=== PATIENT | male | born 1970 | race Caucasian/White ===

== ENCOUNTER 2021-12-03 15:48 | Outpatient (CLI) | payer OTHER, SELFPAY ==
--- OUTSIDE RECORDS SUMMARY | 2021-11-20 09:14 | XMS_ITS | Continuity of Care Document ---
:1970 Author Care Team Providers Name Role Phone SEEN Primary Care Physician Unavailable BRITTANY Patel Attending Physician Allergies, Adverse Reactions, Alerts Allergen Type Severity Reaction Last Verified Status Updated Avocado Allergy Unknown November 03, Yes Active 2020 TEGADERM Adverse Mild Rash August 03, No Active Reaction 2021 Social History Smoking Status Unknown if ever smoked Additional Data Assigned Sex Male Problems Active Problems Medical Problem Onset Date Status Rectal cancer metastasized to 2020 Active intra-abdominal lymph node Medications Medication Status Dose Units Route Directions Qty Days Start End Ins tructions Date Date Diphenhydrami Active 25 MG OR As Needed ne Hcl (Benadryl Allergy) 25 Mg CAP Ibuprofen Active 200 MG PO Q6h Prn 30 (Advil) 200 Mg CAP Loperamide Active 2 MG PO As Needed Hcl (Imodium) 2 Mg CAP Magic Discontin 5 ML PO Four Times October For mouth tenderness/sores. SWISH, HOLD in Mouth, then SPIT. Mouthwash ued Daily as , r , SEPTEMBER CO MPOUND IF FIRST PRODUCT NOT COVERED (Lidocaine/Be needed 2020 2020 nadryl/Maalox 8:32am 4:03pm ) (First-Mouthw charlie Blm) Blm RAMILA Ondansetron Discontin 4 MG PO Every July Octobe Hcl (Zofran) ued Hours as , r 4th, 4 Mg TAB needed 2020 2020 5:22pm 4:03pm Oxycodone Hcl Discontin 5-10 MG PO Every July ued Hours as , needed 2020 1:56pm Oxycodone/Misael Discontin 1-2 TAB PO Every 4 Franky ar taminophen ued Hours as r 4th, y (Percocet) 5 needed 2020, Mg/325 Mg TAB 4:55pm 2021 2:37pm Oxycodone/Misael Discontin 1-2 TAB PO Every February Nove mb taminophen ued Hours as 4th, er (Percocet) 5 needed 2020 4th, Mg/325 Mg TAB 4:33pm 2020 4:54pm Oxycodone/Misael Discontin 1-2 TAB PO Every Febo be taminophen ued Hours as er 8th, r 4th, (Percocet) 5 needed 2020 2020 Mg/325 Mg TAB 5:27pm 4:33pm Oxycodone/Misael Discontin 1-2 TAB PO Every December m taminophen ued Hours as 20th, raffi (Percocet) 5 needed 2020 8th, Mg/325 Mg TAB 9:22am 2020 5:25pm Oxycodone/Misael Discontin 1-2 TAB PO Every December Augus t taminophen ued Hours as 4th, , (Percocet) 5 needed 2020 2020 Mg/325 Mg TAB 8:43am 9:21am Oxycodone/Misael Discontin 1-2 TAB PO Every November taminophen ued Hours as 9th, 4th, (Percocet) 5 needed 2020 2020 Mg/325 Mg TAB 12:24pm 8:41am Oxycodone/Misael Discontin 1-2 TAB PO Every October taminophen ued Hours as 11th, 9th, (Percocet) 5 needed 2020 2020 Mg/325 Mg TAB 1:30pm 12:22p m Oxycodone/Misael Discontin 1-2 TAB PO Every September taminophen ued Hours as 17, 11th, (Percocet) 5 needed 2020 2020 Mg/325 Mg TAB 12:00pm 1:28pm Oxycodone/Misael Discontin 1-2 TAB PO Every August taminophen ued Hours as , 17, (Percocet) 5 needed 2020 2020 Mg/325 Mg TAB 4:49pm 12:00p m Oxycodone/Misael Discontin 1-2 TAB PO Every August taminophen ued Hours as , , (Percocet) 5 needed 2020 2020 Mg/325 Mg TAB 2:18pm 4:39pm Oxycodone/Misael Discontin 1-2 TAB PO Every 4 July taminophen ued Hours as , 5th, (Percocet) 5 needed 2020 2020 Mg/325 Mg TAB 2:05pm 2:17pm Prochlorperaz Discontin 10 MG PO Three Times 26 November Oc delia ine Maleate ued A Day as , r 4th, needed 2020 2020 1:40pm 4:03pm Prochlorperaz Discontin 10 MG PO Three Times 26 October Ju ne ine Maleate ued A Day as , , needed 2020 2020 12:00pm 1:40pm Prochlorperaz Discontin 10 MG PO Three Times 26 August Ma y ine Maleate ued A Day as , , needed 2020 2020 5:22pm 12:00p m Simethicone Discontin 125 MG PO Four Times 27 November Jan r take after meals and at bedtime if needed to control gas ued Daily as , y pains. Max of 4 caps in 24 hours. needed 2020, 12:22pm 2021 2:37pm Relevant Diagnostic Tests and/or Laboratory Data Laboratory Results Test Date/Time Result Interpretation Reference Result Comment Performing Range Site White Blood November 16, 6.57 5.00-10.00 [facility] Lab Count 2021 1999 [facility] 8:53am [place] [address] Red Blood November 16, 4.58 4.32-5.72 [facility] Count 2021 1999 [facility] 8:53am [place] [address] Hemoglobin November 16, 15.1 13.5-17.5 [facility] Lab 2021 [address] [facility] 8:53am [place] [address] Hematocrit November 16, 44.3 38.8-50.0 [facility] Lab 2021 1999 [facility] 8:53am [place] [address] Mean November 16, 97 81-95 [facility] Corpuscular 2021 1999 [facility] Volume 8:53am [place] [address] Mean November 16, 33 27-34 [facility] Corpuscular 2021 1999 [facility] Hemoglobin 8:53am [place] [address] Mean November 16, 34 32-36 [facility] Corpuscular 2021 [address] [facility] Hemoglobin 8:53am [facility] [place] [address] Concent Platelet Count November 16, 248 150-450 [facility] Lab 2021 [address] [facility] 8:53am [facility] [address] RDW November 16, 13.2 11.5-15.3 [facility] Coefficient of 2021 [address] [facility] Variation 8:53am [place] [address] Neutrophils November 16, 62.6 50.0-70.0 [facility] Lab (%) (Auto) 2021 1999 [facility] 8:53am [facility] [address] Lymphocytes November 16, 18.7 25.0-45.0 [facility] (%) (Auto) 2021 1999 [facility] 8:53am [facility] [address] Monocytes (%) November 16, 10.0 0.00-11.0 [facility] Lab (Auto) 2021 [address] [facility] 8:53am [place] [address] Eosinophils November 16, 7.3 0.0-7.0 [facility] (%) (Auto) 2021 1999 [facility] 8:53am [facility] [address] Basophils (%) November 16, 1.2 0.0-3.0 [facility] Lab (Auto) 2021 [address] [facility] 8:53am [place] [address] Immature November 16, 0.2 [facility] Granulocyte % 2021 1999 [facility] (Auto) 8:53am [facility] [address] Neutrophils # November 16, 4.11 1.70-7.00 [facility] Lab (Auto) 2021 [address] [facility] 8:53am [facility] [address] Lymphocytes # November 16, 1.23 0.90-2.90 [facility] Lab (Auto) 2021 [address] [facility] 8:53am [facility] [address] Monocytes # November 16, 0.66 0.30-0.90 [facility] Lab (Auto) 2021 [address] [facility] 8:53am [facility] [address] Eosinophils # November 16, 0.48 0.00-0.50 [facility] Lab (Auto) 2021 [address] [facility] 8:53am [facility] [address] Basophils # November 16, 0.08 0.00-0.20 [facility] (Auto) 2021 [address] [facility] 8:53am [place] [address] Immature November 16, 0.01 [facility] Granulocyte # 2021 [address] [facility] (Auto) 8:53am [facility] [address] Random Glucose November 16, 103 60-115 [facility] Lab 2021 [address] [facility] 8:53am [place] [address] Blood Urea November 16, 7 7-30 [facility] Nitrogen 2021 [address] [facility] 8:53am [place] [address] Creatinine November 16, 0.9 0.5-1.5 [facility] Lab 2021 [address] [facility] 8:53am [place] [address] Estimated November 16, 88.028 [facility] Creatinine 2021 1999 [facility] Clearance 8:53am [place] [address] Sodium Level November 16, 137 135-149 [facility] Lab 2021 [address] [facility] 8:53am [place] [address] Potassium November 16, 4.3 3.6-5.1 [facility] Level 2021 1999 [facility] 8:53am [facility] [address] Chloride Level November 16, 101 96-114 [facility] Lab 2021 [address] [facility] 8:53am [facility] [address] Carbon Dioxide November 16, 28 20-32 [facility] Lab Level 2021 [address] [facility] 8:53am [facility] [address] Calcium Level November 16, 8.9 8.4-10.6 [facility] Lab 2021 [address] [facility] 8:53am [facility] [address] Total Protein November 16, 6.8 6.0-8.3 The use of [facility] Lab 2021 Eltrombopag, a 1999 [facility] 8:53am bone marrow [place] [facility] [address] stimulant used to treat thrombocytopenia and aplastic anemia, interferes with this measurement of total protein. A 5% bias has been observed. Albumin November 16, 4.2 3.3-5.0 [facility] 2021 [address] [facility] 8:53am [place] [address] Total November 16, 0.7 0.1-1.5 [facility] Bilirubin 2021 1999 [facility] 8:53am [place] [address] Aspartate November 16, 39 12-35 [facility] Amino Transf 2021 1999 [facility] (AST/SGOT) 8:53am [facility] [place] [address] Alanine November 16, 26 4-50 [facility] Aminotransfera 2021 1999 [facility] se (ALT/SGPT) 8:53am [facility] [place] [address] Alkaline November 16, 107 40-150 [facility] Phosphatase 2021 1999 [facility] 8:53am [facility] [address] Carcinoembryon November 02, 4.3 <=3.8 INTERPRETIVE [facility] [[email or web address]] [employer] ic Antigen 2021 INFORMATION: [address] 8:05am Carcinoembryonic [facility] [id number] AntigenThe Andra CEA electrochemilumi nescent immunoassay was used.Results obtained with different test methods or kits cannot beused interchangeably. Measurement of CEA has been shown to beclinically relevant in the management of patients withcolorectal, breast, lung, prostatic, pancreatic, and ovariancarcinoma s. Smokers may have slightly elevated levels of CEA.The CEA assay value, regardless of level, should not beinterpreted as evidence for the presence or absence of malignantdisease and is not recommended for use as a screening procedureto detect the presence of cancer in the general population.Perfo rmed By: [employer] [place] [id number] Director: Ana Luisa Lucas MD Insurance Providers Guarantor Jae Real Address [address] [facility] [address] Contact Info. Home Phone: Payer Policy Id Coverage Id Subscriber's Subscriber Effective Expi ration Name Id Date Date [facility] [id number] Jae Real Family Plan Encounters Encounter Location(s) Arrival/Admit Date Discharge/Depart Date Provider(s) Registered [place] November 18, 2021 Ethan Santos [facility] 6:58am Plan of Treatment Future Tests Future scheduled test information is unavailable Pending Tests Pending diagnostic test information is unavailable Future Visits Future appointment information is unavailable Referrals to Other Providers Referral information is unavailable Future Procedures Future procedure information is unavailable Future Medications Future medication information is unavailable Patient Instructions Dexamethasone (By injection) Palonosetron (By injection) Atropine (By injection) Fosaprepitant (By injection)
--- OUTSIDE RECORDS SUMMARY | 2021-11-20 11:12 | XMS_ITS | Continuity of Care Document ---
[...] Site White Blood November 16, 6.57 5.00-10.00 [facility] Lab Count 2021 1999 [facility] 8:53am [place] [address] Red Blood November 16, 4.58 4.32-5.72 [facility] Lab Count 2021 1999 [facility] 8:53am [place] [address] Hemoglobin November 16, 15.1 13.5-17.5 [facility] Lab 2021 1999 [facility] 8:53am [place] [address] Hematocrit November 16, 44.3 38.8-50.0 [facility] Lab 2021 [address] [facility] 8:53am [place] [address] Mean November 16, 97 81-95 [facility] Corpuscular 2021 1999 [facility] Volume 8:53am [place] [address] Mean November 16, 33 27-34 [facility] Corpuscular 2021 1999 [facility] Hemoglobin 8:53am [place] [address] Mean November 16, 34 32-36 [facility] Corpuscular 2021 [address] [facility] Hemoglobin 8:53am [place] [address] Concent Platelet Count November 16, 248 150-450 [facility] 2021 [address] [facility] 8:53am [facility] [address] RDW November 16, 13.2 11.5-15.3 [facility] Coefficient of 2021 1999 [facility] Variation 8:53am [place] [address] Neutrophils November 16, 62.6 50.0-70.0 [facility] Lab (%) (Auto) 2021 1999 [facility] 8:53am [facility] [address] Lymphocytes November 16, 18.7 25.0-45.0 [facility] Lab (%) (Auto) 2021 1999 [facility] 8:53am [facility] [address] Monocytes (%) November 16, 10.0 0.00-11.0 [facility] Lab (Auto) 2021 [address] [facility] 8:53am [place] [address] Eosinophils November 16, 7.3 0.0-7.0 [facility] (%) (Auto) 2021 1999 [facility] 8:53am [facility] [address] Basophils (%) November 16, 1.2 0.0-3.0 [facility] Lab (Auto) 2021 [address] [facility] 8:53am [place] [address] Immature November 16, 0.2 [facility] Granulocyte % [address] [facility] (Auto) 8:53am [facility] [address] Neutrophils # November 16, 4.11 1.70-7.00 [facility] Lab (Auto) 2021 1999 [facility] 8:53am [facility] [address] Lymphocytes # November 16, 1.23 0.90-2.90 [facility] Lab (Auto) 2021 [address] [facility] 8:53am [facility] [address] Monocytes # November 16, 0.66 0.30-0.90 [facility] Lab (Auto) 2021 [address] [facility] 8:53am [facility] [address] Eosinophils # November 16, 0.48 0.00-0.50 [facility] Lab (Auto) 2021 [address] [facility] 8:53am [facility] [address] Basophils # November 16, 0.08 0.00-0.20 [facility] Lab (Auto) 2021 [address] [facility] 8:53am [place] [address] Immature November 16, 0.01 [facility] Granulocyte # [address] [facility] (Auto) 8:53am [facility] [address] Random Glucose November 16, 103 60-115 [facility] Lab 2021 [address] [facility] 8:53am [place] [address] Blood Urea November 16, 7 7-30 [facility] Nitrogen 2021 [address] [facility] 8:53am [place] [address] Creatinine November 16, 0.9 0.5-1.5 [facility] Lab 2021 [address] [facility] 8:53am [place] [address] Estimated November 16, 88.028 [facility] Creatinine 2021 1999 [facility] Clearance 8:53am [place] [address] Sodium Level November 16, 137 135-149 [facility] Lab 2021 [address] [facility] 8:53am [place] [address] Potassium November 16, 4.3 3.6-5.1 [facility] Lab Level 2021 [address] [facility] 8:53am [facility] [address] Chloride Level November 16, 101 96-114 [facility] Lab 2021 [address] [facility] 8:53am [facility] [address] Carbon Dioxide November 16, 28 20-32 [facility] Level 2021 [address] [facility] 8:53am [facility] [address] Calcium Level November 16, 8.9 8.4-10.6 [facility] Lab 2021 [address] [facility] 8:53am [facility] [address] Total Protein November 16, 6.8 6.0-8.3 The use of [facility] Lab 2021 Eltrombopag, a [address] [facility] 8:53am bone [place] [address] stimulant used to treat thrombocytopenia and aplastic anemia, interferes with this measurement of total protein. A 5% bias has been observed. Albumin November 16, 4.2 3.3-5.0 [facility] Lab 2021 [address] [facility] 8:53am [place] [address] Total November 16, 0.7 0.1-1.5 [facility] Bilirubin 2021 [address] [facility] 8:53am [place] [address] Aspartate November 16, 39 12-35 [facility] Lab Amino Transf 2021 1999 [facility] (AST/SGOT) 8:53am [place] [address] Alanine November 16, 26 4-50 [facility] Lab Aminotransfera 2021 1999 [facility] se (ALT/SGPT) 8:53am [facility] [place] [address] Alkaline November 16, 107 40-150 [facility] Lab Phosphatase 2021 1999 [facility] 8:53am [facility] [address] Carcinoembryon November 02, 4.3 <=3.8 INTERPRETIVE [facility] [employer] ic Antigen 2021 INFORMATION: [address] 8:05am Carcinoembryonic [facility] [id number] AntigenThe Andra CEA electrochemilumi nescent immunoassay was [...] cancer in the general population.Perfo rmed By: [employer] [place] [id number] Director: Ana Luisa Lucas MD Insurance Providers Guarantor Jae Real Address [address] [facility] [address] Contact Info. Home Phone: Payer Policy Id Coverage Id Subscriber's Subscriber Effective Expi ration Name Id Date Date [facility] [id number] Jae Real Family Plan Encounters Encounter Location(s) Arrival/Admit Date Discharge/Depart Date Provider(s) Registered [place] November 18, 2021 Ethan Santos [facility] 6:58am Plan of Treatment Future Tests [...]
--- NOTE | 2021-11-30 16:55 | ONC.NURNOTE ---
Care coordination: Mr. Real saw Dr. Rosita Graham, [facility], on 11/23/21 at the [facility] for medical management of metastatic rectal adenocarcinoma, YOLY, +[id number], +SMAD4, +TP53. Plan for repeat PET imaging, fex sigmoidoscopy to determine status of primary tumor and risk for obstruction. Ptoential need for palliative radiation. Possible repeat pelvic MRI for radiation treatment planning. Consideration fo re-escalation of treatment if evidence of progression with adding back either oxaliplatin or irintecan. Chemotehrapy on hold until follow up appointment with Dr. Justen Ha 12/07/21. Please review Dr. Lopez entire note in [employer] C/S for further details. Mr. Real was taken off the schedule for TuesdayDecember 01.
--- NOTE | 2021-12-03 15:30 | CRLHL7_ITS ---
For Patients: As a result of the 21st Century Cures Act, medical imaging exams and procedure reports are released immediately into your electronic medical record. You may view this report before your referring provider. If you have questions, please contact your health care provider. INDICATION: Rectal cancer TECHNIQUE: Following IV injection of FDG with uptake of 55 minutes, noncontrast CT scan followed by a PET scan were acquired along the length of body from the head to the upper thighs. Noncontrast CT was used for anatomic localization and photon attenuation correction of the PET-CT scan. - Blood glucose level: 67. - FDG dose (mCi): 10.32. COMPARISON: 09/24/2021 PET-CT. FINDINGS: Head/Neck: Left upper cervical lymph nodes with SUV max of 2.8 previously 4.0. Right supraclavicular node SUV max 3.5 previously 4.0. - Chest: Mild esophageal uptake is again noted, similar to prior with SUV max of 3.7 previously 3.4. - Background liver parenchyma with SUV mean of 2.0. Prominent retroperitoneal lymph nodes with mild to moderate tracer uptake. Left periaortic lymph node with SUV max of 5.1, new from prior. Aortocaval lymph node SUV max 3.5 previously 3.1. Left external iliac lymph node with SUV max of 2.6 previously 3.3. Left inguinal lymph nodes with SUV max of 2.5 previously 2.2. Rectal lesion SUV max of 23.6 previously 22.2 measuring 3.3 x 2.2 cm previously 2.6 x 2.3 cm. - Musculoskeletal: No tracer avid bone lesion. - CT findings: Mucosal thickening involving bilateral maxillary sinus, ethmoid sinus and sphenoid sinus, as seen on prior. Chest port tip at the cavoatrial junction. No focal lung consolidation, pleural effusion or pneumothorax. Stable small pulmonary micronodules. Lymph nodes as above. Hepatic steatosis. Stable subcutaneous cyst in the right anterior chest wall. Atherosclerotic abdominal aorta. Rectal mass as above. Degenerative changes in the spine. IMPRESSION : 1. Rectal mass with intense uptake, similar to prior exam. 2. Left chavez-aortic retroperitoneal lymph node with moderate uptake, new from prior. Aortic caval lymph node with mild uptake, slightly increased from prior. 3. Left external iliac chain lymph node and left inguinal lymph node with low level uptake, slightly decreased from prior. 4. Left upper cervical and right supraclavicular lymph nodes with mild uptake, decreased from prior. 5. Sinusitis is again noted. Dictated by Michele Ron MD @ 12/04/2021 11:40:52 AM (Electronically Signed)
--- NOTE | 2021-12-04 15:36 | ONC.NURNOTE ---
Addendum entered by Farida Herrera RN 12/07/21 13:50: [facility] notified that patient is scheduled at [facility]. Original Note: Pt called stating he has a covid test scheduled for 12/07/21 and Endoscopy appt set up for 12/08/21 at 1400.
== END 2021-12-03 15:49 | disposition home or self-care (01) ==
PROVIDERS: PCP Internal Medicine Hematology & Oncology; Visit Provider Internal Medicine Hematology & Oncology
DX: C20 Malignant neoplasm of rectum (principal); C77.2 Secondary and unspecified malignant neoplasm of intra-abdominal lymph nodes
CPT/HCPCS: 78815; A9552

== ENCOUNTER 2021-12-08 13:18 | Outpatient (CLI) | payer OTHER, SELFPAY ==
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
--- OUTSIDE RECORDS SUMMARY | 2022-01-05 08:45 | XMS_ITS | Encounter Summary ---
:1970 Author Organization [facility] Address [address] [place] [id number] Care Team Providers Name Role Phone Unavailable Primary Care Provider Unavailable Encounter Details Date Type Department Care Team Description 12/08/2020 Clinical Communication Department of [facility] [place] [address] [phone] Social History Tobacco Use Types Packs/Day Years Used Date Smoking Tobacco: Every Day Cigarettes 0.5 Smokeless Tobacco: Never Sex Assigned at Date Recorded Male 08/07/2019 10:59 AM CDT documented as of this encounter Plan of Treatment Upcoming Encounters Date Type Specialty Care Team Description 12/15/2021 Appointment Radiation Oncology Abilio Piña M.D. [address] [place] [phone] Isabel Lima R.N. [address] [place] [phone] 12/15/2021 Appointment Radiation Oncology Abilio Piña M.D. [address] [place] [phone] (Wo rk) documented as of this encounter Visit Diagnoses Not on filedocumented in this encounter
--- OUTSIDE RECORDS SUMMARY | 2022-01-05 08:45 | XMS_ITS | Encounter Summary ---
:1970 Author Organization [facility] Address [address] [place] [address] Care Team Providers Name Role Phone Unavailable Primary Care Provider Unavailable Encounter Details Date Type Department Care Team Description 09/11/2019 Abstract [facility] External, Referring Provider Social History Tobacco Use Types Packs/Day Years Used Date Smoking Tobacco: Every Day Cigarettes 0.5 Smokeless Tobacco: Never Sex Assigned at Date Recorded Male 08/07/2019 10:59 AM CDT documented as of this encounter Plan of Treatment Upcoming Encounters Date Type Specialty Care Team Description 12/15/2021 Appointment Radiation Oncology Abilio Piña M.D. [address] [place] [phone] Isabel Lima R.N. [address] [place] [phone] 12/15/2021 Appointment Radiation Oncology Abilio Piña M.D. [address] [place] [phone] (Wo rk) documented as of this encounter Procedures Procedure Name Priority Date/Time Associated Diagnosis Comme nts BASIC METABOLIC PANEL, Routine 08/07/2019 Resul ts for this S/P procedure are i n the results section . documented in this encounter Results Basic Metabolic Panel (08/07/2019) P athologist Signature EXT Creatinine 172.3 EXTERNAL NON-INTERFACED LAB Specimen (Source) Anatomical Location Collection Method / Collectio n Time Received Time / Laterality Volume Blood (Blood, Venous) Referring Provider External LAB BLOOD ADD-ON Performing Organization Address City/State/ZIP Code Phon e Number EXTERNAL NON-INTERFACED LAB [address] [place], [place] [address] documented in this encounter Visit Diagnoses Not on filedocumented in this encounter
--- OUTSIDE RECORDS SUMMARY | 2022-01-05 08:45 | XMS_ITS | Clinical Summary ---
:1970 Author Organization [facility] Address [address] [place] [address] Care Team Providers Name Role Phone Unavailable Primary Care Provider Unavailable Source Comments Patient records contain information from all sites at [facility]. For routine questions regarding patient records, call [phone] during business hours, M-F 8:00 AM - 5:00 PM Central Time. Record requests for emergency care only can be directed to [phone] at any time.[facility] Allergies Active Allergy Reactions Severity Noted Date Comments Avocado Anaphylaxis Low 08/07/2019 Pollen Extracts Other (see comments) 03/10/2010 Medications Medication Sig Dispensed Refills Start Date End Date Status diphenhydrAMINE Take by mouth 0 07/01/2020 Active (BENADRYL) 25 mg every 6 (six) capsule hours. As needed for seasonal allergies (hayfever) ibuprofen Take 200 mg by 0 Activ e (ADVIL,MOTRIN) 200 mg mouth every 6 tablet (six) hours as needed for pain (as needed). Active Problems Problem Noted Date Malignant Neoplasm Of Rectum 08/13/2020 Cancer Staging: Clinical stage from 07/22: Stage IVB (cT3, cN2b, pM1b) - Signed by Elliot Piña M.D. on 08/14/2020 Encounters Date Type Specialty Care Team Description 12/15/2021 Hospital Encounter Radiation Oncology Elliot Piña Malignant Neoplasm Of L, M.D. Rectum (HCC) (P rimary Dx) 12/11/2021 Orders Only Radiation Oncology Elliot Piña Malign ant Neoplasm Of L, M.D. Rectum (HCC) (P rimary Dx) from Last 3 Months Family History Medical History Relation Name Comments Melanoma Father Also possible ea rly bladder cancer. Dementia Mother Relation Name Status Comments Father Alive Mother Alive Social History Tobacco Use Types Packs/Day Years Used Date Smoking Tobacco: Every Day Cigarettes 0.5 S tarted: 1991 Smokeless Tobacco: Never Alcohol Use Standard Drinks/Week Comments Yes 14 (1 standard drink = 0.6 oz pure alcoh ol) Sex Assigned at Date Recorded Male 08/07/2019 10:59 AM CDT Last Filed Vital Signs Vital Sign Reading Time Taken Comments Blood Pressure 133/75 12/15/2021 10:00 AM CDT Pulse 75 12/15/2021 10:00 AM CDT Temperature 36.9 ??C (98.4 ??F) 12/15/2021 10:00 AM CDT Respiratory Rate 18 10/20/2013 1:03 AM CDT Oxygen Saturation - - Inhaled Oxygen Concentration - - Weight 63.4 kg (139 lb 12.4 oz) 12/15/2021 10:00 AM CDT Height 177.8 cm (5' 10) 08/14/2020 8:29 AM CDT Body Mass Index 20.06 08/14/2020 8:29 AM CDT Plan of Treatment Upcoming Encounters Date Type Specialty Care Team Description 12/15/2021 Appointment Radiation Oncology Abilio Piña M.D. [address] [place] [phone] Isabel Lima R.N. [address] [place] [phone] 12/15/2021 Appointment Radiation Oncology Abilio Piña M.D. [address] [place] [phone] (Wo rk) Health Maintenance Due Date Last Done Comments CT Colonography 1970 Cologuard 1970 Colonoscopy 1970 Colorectal Cancer Surveillance 1970 Fasting Glucose for Diabetes 1970 Screening Fasting Lipid Panel 1970 HIV Screening 1970 Hepatitis B Vaccines (1 of 3 - 3-dose 1970 series) Hepatitis C Screening 1970 Tobacco Cessation counseling 1970 Pneumococcal vaccine (0-64 years) (1 1976 - PCV) Zoster Vaccines (1 of 2) 2020 Depression Screening (Annual PHQ-2) 05/30/2021 COVID-19 Vaccine (4 - Booster for 08/28/2021 04/29/2021, , Pfizer series) 10/22/2020 Influenza Vaccine (#1) 2022 DTaP,Tdap,and Td Vaccines (2 - Td or 12/24/2026 12/24/2016 Tdap) Procedures Procedure Name Priority Date/Time Associated Diagnosis Comme nts OUTSIDE NM PET Routine 12/03/2021 5:00 PM Results for this CDT procedure are i n the results section . OUTSIDE NM PET Routine 09/24/2021 6:05 PM Results for this CDT procedure are i n the results section . from Last 3 Months Results PET SKULL to MID THIGH-Outside NM Pet (12/03/2021 5:00 PM CDT)Only the most recent of2 resultswithin the time period is included. Specimen (Source) Anatomical Location Collection Method / Collectio n Time Received Time / Laterality Volume Narrative IIMS - 12/07/2021 9:15 AM CDT This order has been created and auto-finalized to support the import of outside images. If available, original i nterpretation can be found on the Media Tab in Chart Review, in Document V iewer, or as an image in QREADS. If a re-interpretation or overread is re quired please follow defined workflow. ?? Provider Not In System IMG NM PROCEDURES Performing Organization Address City/State/ZIP Code Phon e Number IIMS IIMS NA from Last 3 Months Insurance Payer Benefit Plan Subscriber ID Effective Dates Phone Address Type / Group [employer] [place] [id number] 2017-Presen [phone] [address] [address] [facility] [address] [place] [address] [facility] [employer] [id number] 2021-Presen [phone] [address] HMO t 5 [place] [address]
--- OUTSIDE RECORDS SUMMARY | 2022-01-05 08:45 | XMS_ITS | Encounter Summary ---
:1970 Author Organization [facility] Address [address] [place] [address] Care Team Providers Name Role Phone Unavailable Primary Care Provider Unavailable Encounter Details Date Type Department Care Team Description 08/12/2020 Orders Only Department of Radiation Elliot Pi[facility] [place] [address] [place] [address] [address] [place] [phone] (Wo rk) Social History Tobacco Use Types Packs/Day Years Used Date Smoking Tobacco: Every Day Cigarettes 0.5 Smokeless Tobacco: Never Sex Assigned at Date Recorded Male 08/07/2019 10:59 AM CDT documented as of this encounter Plan of Treatment Upcoming Encounters Date Type Specialty Care Team Description 12/15/2021 Appointment Radiation Oncology Abilio Piña M.D. [address] [place] [address] [phone] Isabel Lima R.N. [address] [place] [phone] 12/15/2021 Appointment Radiation Oncology Abilio Piña M.D. [address] [place] [phone] (Wo rk) documented as of this encounter Visit Diagnoses Not on filedocumented in this encounter
--- OUTSIDE RECORDS SUMMARY | 2022-01-05 08:46 | XMS_ITS | Encounter Summary ---
:1970 Author Organization [facility] Address [address] [place] [address] Care Team Providers Name Role Phone Unavailable Primary Care Provider Unavailable Encounter Details Date Type Department Care Team Description 12/08/2017 Orders Only Department of Patrica Vazquez Pain Knee Right Orthopedic Surgery in [facility] (Prima ry Dx) [place], [place] [address] [place] [address] Social History Tobacco Use Types Packs/Day Years Used Date Smoking Tobacco: Every Day Cigarettes 0.5 Smokeless Tobacco: Never Sex Assigned at Date Recorded Male 08/07/2019 10:59 AM CDT documented as of this encounter Plan of Treatment Upcoming Encounters Date Type Specialty Care Team Description 12/15/2021 Appointment Radiation Oncology Abilio Piña M.D. [address] [place] [phone] Isabel Lima, RKianaNKiana [address] [place] [phone] 12/15/2021 Appointment Radiation Oncology Abilio Piña M.D. [address] [place] [phone] (Wo rk) documented as of this encounter Visit Diagnoses Diagnosis Pain Knee Right - Primary documented in this encounter
--- OUTSIDE RECORDS SUMMARY | 2022-01-05 08:46 | XMS_ITS | Encounter Summary ---
:1970 Author Organization [facility] Address [address] [place] [address] Care Team Providers Name Role Phone Unavailable Primary Care Provider Unavailable Encounter Details Date Type Department Care Team Description 03/09/2010 Hospital Encounter HX NO MAPPING Social History Tobacco Use Types Packs/Day Years Used Date Smoking Tobacco: Never Assessed Sex Assigned at Date Recorded Male 08/07/2019 10:59 AM CDT documented as of this encounter Plan of Treatment Upcoming Encounters Date Type Specialty Care Team Description 12/15/2021 Appointment Radiation Oncology Abilio Piña M.D. [address] [place] [phone] Isabel Lima, RKianaNKiana [address] [place] [phone] 12/15/2021 Appointment Radiation Oncology Abilio Piña M.D. [address] [place] [phone] (Wo rk) documented as of this encounter Visit Diagnoses Not on filedocumented in this encounter
--- OUTSIDE RECORDS SUMMARY | 2022-01-05 08:46 | XMS_ITS | Encounter Summary ---
:1970 Author Organization [facility] Address [address] [place] [address] Care Team Providers Name Role Phone Unavailable Primary Care Provider Unavailable Encounter Details Date Type Department Care Team Description 03/09/2010 - 03/10/2010 Hospital Encounter HX RST GATITO [facility] 8G Social History Tobacco Use Types Packs/Day Years Used Date Smoking Tobacco: Never Assessed Sex Assigned at Date Recorded Male 08/07/2019 10:59 AM CDT documented as of this encounter Plan of Treatment Upcoming Encounters Date Type Specialty Care Team Description 12/15/2021 Appointment Radiation Oncology Abilio Piña M.D. [address] [place] [phone] Isabel Lima R.N. [address] [place] [phone] 12/15/2021 Appointment Radiation Oncology Abilio Piña M.D. [address] [place] [phone] (Wo rk) documented as of this encounter Visit Diagnoses Not on filedocumented in this encounter
--- OUTSIDE RECORDS SUMMARY | 2022-01-05 08:46 | XMS_ITS | Encounter Summary ---
:1970 Author Organization [facility] Address [address] [place] [address] Care Team Providers Name Role Phone Unavailable Primary Care Provider Unavailable Encounter Details Date Type Department Care Team Description 02/17/2009 - Hospital Encounter HX [facility] Juhi Contreras, 06/21/2011 BRITTANY, C.N.P., [place], R.N. Social History Tobacco Use Types Packs/Day Years Used Date Smoking Tobacco: Never Assessed Sex Assigned at Date Recorded Male 08/07/2019 10:59 AM CDT documented as of this encounter Plan of Treatment Upcoming Encounters Date Type Specialty Care Team Description 12/15/2021 Appointment Radiation Oncology Abilio Piña M.D. [address] [place] [phone] Isabel Lima RHari [address] [place] [phone] 12/15/2021 Appointment Radiation Oncology Abilio Piña M.D. [address] [place] [phone] (Wo rk) documented as of this encounter Visit Diagnoses Not on filedocumented in this encounter
--- OUTSIDE RECORDS SUMMARY | 2022-01-05 08:46 | XMS_ITS | Encounter Summary ---
:1970 Author Organization [facility] Address [address] [place] [id number] Care Team Providers Name Role Phone Unavailable Primary Care Provider Unavailable Encounter Details Date Type Department Care Team Description 10/20/2013 Hospital Encounter HX [facility] Leeanne Marino ED, M.D. Social History Tobacco Use Types Packs/Day Years Used Date Smoking Tobacco: Never Assessed Sex Assigned at Date Recorded Male 08/07/2019 10:59 AM CDT documented as of this encounter Last Filed Vital Signs Vital Sign Reading Time Taken Comments Blood Pressure 141/86 10/20/2013 1:03 AM CDT Pulse 73 10/20/2013 1:03 AM CDT Temperature - - Respiratory Rate 18 10/20/2013 1:03 AM CDT Oxygen Saturation - - Inhaled Oxygen Concentration - - Weight - - Height - - Body Mass Index - - documented in this encounter Discharge Summaries Chandrika Davey RHari - 10/20/2013 1:40 AM CDT ED Discharge Instructions [address] [address] Name: JAE REAL Date of : 1970 12:00 AM Visit Date: 10/20/2013 12:55 AM [facility] Number: [id number] Address: [address] [place] [id number] Primary Care Provider: PCPKEVIN - DANIEL IMPORTANT: [facility] in [place] would like to thank you for allowing us to assist you with your healthcare needs. The following includes patient education materials and information regarding your injury/illness. Chief Complaint: UC - Sinus Pain or Congestion; UC-SINUS PAIN OR CONGESTION Follow-Up Instructions: With: Address: When: Follow up with primary care provider Within As Needed Comments: Your Upcoming Appointments: Date Time Location Reason Provider No Appointments found Patient Education Materials: [id number] SINUSITIS [Abx tx] The sinuses are air-filled spaces within the bones of the face. They connect to the inside of the nose. Sinusitis is an inflammation of the tissue lining the sinus cavity. Sinus inflammation can occur during a cold or hay-fever (allergies to pollens and other particles in the air) and cause symptoms of sinus congestion and fullness. A sinus infection causes fever, headache and facial pain. There is usually green or yellow drainage from the nose or into the back of the throat (post-nasal drip). Antibiotics are prescribed to treat this condition. HOME CARE: ?? Drink plenty of water, hot tea, and other liquids to stay well hydrated. This thins the mucus andpromotes sinus drainage. ?? Apply heat to the painful areas of the face. Use a towel soaked in hot water. Or, multi purpose machine operator the shower and direct the hot spray onto your face. This is a good way to inhale warm water vapor and get heat on your face at the same time. (Cover your mouth and nose with your hands so you can still breathe as you do this.) ?? Use a vaporizer with products such as [employer] VapoRub (contains menthol) at night. Suck on peppermint, menthol or eucalyptus hard candies during the day. ?? An expectorant containing guaifenesin (such as Robitussin), helps to thin the mucus and promote drainage from the sinuses. ?? Zydw-cgo-dfsxkdz decongestants may be used unless a similar medicine was prescribed. Nasal sprayswork the fastest. Use one that contains phenylephrine (Francisco-synephrine, Sinex and others) or oxymetazoline (Afrin). First blow the nose gently to remove mucus, then apply the drops. Do not use these medicines more often than directed on the label or for more than three days or symptoms may worsen. You may also use tablets containing pseudoephedrine (Sudafed). Many sinus remedies combine ingredients, which may increase side effects. Read the labels or ask the pharmacist for help. NOTE: Persons with high blood pressure should not use decongestants. They can raise blood pressure. ?? Antihistamines are useful if allergies are a cause of your sinusitis. The mildest one is chlorpheniramine (available without a prescription). The dose for adults is 8-12mg three times a day. [NOTE: Do not use chlorpheniramine if you have glaucoma or if you are a man with trouble urinating due to anenlarged prostate.] Claritin (loratidine) is an antihistamine that causes less drowsiness and is a good alternative for daytime use. ?? Do not use nasal rinses or irrigation during an acute sinus infection, unless advised by your doctor. Rinsing may spread the infection to other sinuses. ?? You may use acetaminophen (Tylenol) or ibuprofen (Motrin, Advil) to control pain, unless another pain medicine was prescribed. [ NOTE: If you have chronic liver or kidney disease or ever had a stomach ulcer, talk with your doctor before using these medicines.] (Aspirin should never be used in anyone under 18 years of age who is ill with a fever. It may cause severe liver damage.) ?? Finish the full course, even if you are feeling better after a few days. FOLLOW UP with your doctor or this facility in one week or as instructed by our staff if not improving. GET PROMPT MEDICAL ATTENTION if any of the following occur: ?? Facial pain or headache becomes more severe ?? Stiff neck ?? Unusual drowsiness or confusion, or not acting like your normal self ?? Swelling of the forehead or eyelids ?? Vision problems including blurred or double vision ?? Fever of 100.4??F (38??C) or higher, or as directed by your healthcare provider Seizure ?? [id number] [facility], [address] [place] [address], [place] [address]. All rights reserved. This information is not intended as a substitute for professional medical care. Always follow your healthcare professional's instructions. ED Tests and Procedures: Order Status Discharge Prescriptions & Home Medications: Medication/Strength Dose Route Frequency Indications/Special Instructions/Comments/Notes 46HYDROcodone-acetaminophen (Brinkhaven 5 mg-325 mg oral tablet) 1 tab(s) Oral every 4 hours as needed for Pain Caution drowsiness: do not work or drive while taking this medication for pain / No more than 4,000mg acetaminophen/24hrs doxycycline (doxycycline hyclate 100 mg oral capsule) 100 mg Oral two times a day for 7 Days Comment: Attention: If you have any medications at home not on this list, DO NOT take them until you contact your provider for clarification. Give a copy of your medication list to your primary care provider. Update your medication list any time medications or doses are changed and carry your medication list at all times in case of emergency. Medication Reconciliation: Reconciliation is a process of identifying the most accurate list of all medications a patient is taking - including name, dosage, frequency, and route - and using this list to provide to the patient information about how to take those medications. JAE REAL or eder has reviewed the home medications you have listed with us. Review the following instructions: You have NOT received any prescriptions and you have told us you are not currently taking any home medications You have NOT received any prescriptions. You have been provided a discharge medications list and you may CONTINUE taking your medications as previously prescribed by your regular providers. You have received the listed prescriptions and BEGIN all listed prescriptions as directed. Since you have listed no home medications, please check with your family doctor if you are taking any other medications. You have received the listed prescriptions and BEGIN all listed prescriptions as directed. Youhave been provided a discharge medications list and you may CONTINUE all home medications as previously prescribed by your regular providers. You have received the listed prescriptions and BEGIN all listed prescriptions as directed. Youhave been provided a discharge medications list. The following CHANGES have been made to your medication list; Otherwise, CONTINUE all home medications as previously prescribed by your regular provider. IMPORTANT: We examined and treated you today on an emergency basis only. This was not a substitute for, or an effort to provide, complete medical care. In most cases, you must let your doctor check youagain. Tell your doctor about any new or lasting problems. We cannot recognize and treat all injuries or illnesses in one Emergency Department visit. If you had special tests, such as EKG's or X- rays, we will review them again within 24 hours. We will call you if there are any new suggestions. Please follow the instructions above carefully. If you are being transferred to another facility your followup plan of care will be determined by the receiving facility. If you are a patient that is being discharged from the Emergency Department after receiving narcotics or other medications that may impair your judgment you may be a risk to yourself or others if you operate a motor vehicle. We recommend that you arrange a ride home with a responsible constitution party. I, JAE REAL , or responsible constitution party have received this information and my questions have been answered. I have discussed any challenges I see with this plan with the nurse or physician. Patient Signature or Responsible Constitution Party/Relationship Date Time Provider Signature Date Time Medication Reconciliation: Reconciliation is a process of identifying the most accurate list of all medications a patient is taking - including name, dosage, frequency, and route - and using this list to provide to the patient information about how to take those medications. JAE REAL or eder has reviewed the home medications you have listed with us. Review the following instructions: You have NOT received any prescriptions and you have told us you are not currently taking any home medications You have NOT received any prescriptions. You have been provided a discharge medications list and you may CONTINUE taking your medications as previously prescribed by your regular providers. You have received the listed prescriptions and BEGIN all listed prescriptions as directed. Since you have listed no home medications, please check with your family doctor if you are taking any other medications. You have received the listed prescriptions and BEGIN all listed prescriptions as directed. Youhave been provided a discharge medications list and you may CONTINUE all home medications as previously prescribed by your regular providers. You have received the listed prescriptions and BEGIN all listed prescriptions as directed. Youhave been provided a discharge medications list. The following CHANGES have been made to your medication list; Otherwise, CONTINUE all home medications as previously prescribed by your regular provider. IMPORTANT: We examined and treated you today on an emergency basis only. This was not a substitute for, or an effort to provide, complete medical care. In most cases, you must let your doctor check youagain. Tell your doctor about any new or lasting problems. We cannot recognize and treat all injuries or illnesses in one Emergency Department visit. If you had special tests, such as EKG's or X- rays, we will review them again within 24 hours. We will call you if there are any new suggestions. Please follow the instructions above carefully. If you are being transferred to another facility your followup plan of care will be determined by the receiving facility. If you are a patient that is being discharged from the Emergency Department after receiving narcotics or other medications that may impair your judgment you may be a risk to yourself or others if you operate a motor vehicle. We recommend that you arrange a ride home with a responsible constitution party. I, JAE REAL , or responsible constitution party have received this information and my questions have been answered. I have discussed any challenges I see with this plan with the nurse or physician. Patient Signature or Responsible Constitution Party/Relationship Date Time Provider Signature Date Time This document has images extracted. Please consider using [employer] for all your patient education needs. Source: [facility] POWERCHART Document Id: [id number] Chandrika Davey R.N. - 10/20/2013 1:40 AM CDT ED Depart Summary [facility] Emergency Department Clinical Discharge Summary PERSON INFORMATION Name JAE REAL Age 43 Years 1970 12:00 AM Sex Male Language Urdu PCP PCP, UNASSIGNED - [place] Marital Status Single Visit Id Visit Reason UC - Sinus Pain or Congestion; UC-SINUS PAIN OR CONGESTION Specialty Enc Type Emergency Med Service Emergency Medicine Referred by Josse SALMON ED Discharge 10/20/2013 1:40 AM Tracking Id [id number] Checkout 10/20/2013 1:40 AM Checkin 10/20/2013 12:55 AM Acuity 5 -Non Urgent Dispo Type * Discharged to Home or Self Care Arrival 10/20/2013 12:55 AM Reg Status Complete LOS 000 00:45 Address: [address] [place] [address] Comment: PROVIDER INFORMATION Provider Role Provider Contact Time LEEANNE CARROLL MD ED Provider 10/20/13 00:56 CHANDRIKA DAVEY RN ED Nurse 10/20/13 01:00 DIAGNOSIS Sinusitis Acute NOS Comment: PATIENT EDUCATION INFORMATION Instructions: SINUSITIS, Abx Tx Follow up: With: Address: When: Follow up with primary care provider Within As Needed Comments: Source: [facility] [employer] Document Id: [id number] documented in this encounter ED Notes Chandrika Davey R.N. - 10/20/2013 1:39 AM CDT ED Disposition Summary ED Disposition Summary Entered On: 10/20/2013 1:39 CDT Performed On: 10/20/2013 1:39 CDT by CHANDRIKA DAVEY RN ED Disposition Summary Accompanied By : Alone Printed Discharge Instructions Given to Patient : Yes Patient Status at Discharge from ED : Improved CHANDRIKA DAVEY RN - 10/20/2013 1:39 CDT [facility] Document Id: [id number] CDT!5 Chandrika Davey R.N. - 10/20/2013 1:39 AM CDT ED Education ED Education Entered On: 10/20/2013 1:39 CDT Performed On: 10/20/2013 1:39 CDT by CHANDRIKA DAVEY RN Education ED Education Grid Topics : Medication Individuals Taught : Patient Barriers to Learning : None evident Teaching Method : Demonstration Teaching Evaluation : Able to teach back CHANDRIKA DAVEY RN - 10/20/2013 1:39 CDT Source: [facility] Document Id: [id number] CDT!9 Chandrika Davey R.N. - 10/20/2013 1:39 AM CDT ED Pain Assessment ED Pain Assessment Entered On: 10/20/2013 1:39 CDT Performed On: 10/20/2013 1:39 CDT by CHANDRIKA DAVEY RN Pain Assessment Pain Symptoms : No CHANDRIKA DAVEY RN - 10/20/2013 1:39 CDT Source: [facility] Document Id: [id number] CDT!3 Leeanne Carroll M.D. - 10/20/2013 1:15 AM CDT UC - Sinus Pain or Congestion Patient: JAE REAL Age: 43 years Sex: Male : 1970 Author: LEEANNE CARROLL MD Attachments: None Associated Diagnosis: Sinusitis Acute NOS Basic Information Additional information: Chief Complaint from Nursing Triage Note : Chief Complaint Description 10/20/2013 1:03 CDT Chief Complaint Description Pt c/o sinus pain and pressure. Concerned he has a sinus infection. . History of Present Illness The patient presents with ear, nose, throat problem. The onset was 3 days ago. The course/duration of symptoms is constant. Location: Bilateral nostril. The character of symptoms is swelling and discharge: yellow and green. The degree at present is minimal. Risk factors consist of none. Prior episodes: occasional. Therapy today: see nurses notes. Associated symptoms: headache, denies fever and deniesvomiting. Review of Systems Constitutional symptoms: No fever. Skin symptoms: No rash. ENMT symptoms: Nasal congestion and sinus pain. Respiratory symptoms: Cough, but no shortness of breath. Cardiovascular symptoms: No chest pain. Gastrointestinal symptoms: No vomiting. Musculoskeletal symptoms: Negative except as documented in HPI. Neurologic symptoms: Headache. Additional review of systems information: All systems reviewed as documented in chart. Health Status Allergies: Allergic Reactions (Selected) NKA. Past Medical/ Family/ Social History Medical history: Reviewed as documented in chart. Surgical history: Reviewed as documented in chart. Family history: Reviewed as documented in chart. Social history: Reviewed as documented in chart. Problem list: Per nurse's notes. Physical Examination Vital Signs: Vital Signs 10/20/2013 1:03 CDT Temperature Core 36.8 DegC Peripheral Pulse Rate 73 /min Respiratory Rate 18 /min SpO2 97 % Systolic Blood Pressure 141 mmHg HI Diastolic Blood Pressure 86 mmHg Mean Arterial Pressure 104 mmHg , SpO2 10/20/2013 1:03 CDT SpO2 97 % . General: Alert and no acute distress. Skin: Warm, dry, pink, intact, no pallor, no rash and normal for ethnicity. Head: Normocephalic and atraumatic. Neck: Supple, trachea midline and no tenderness. Eye: Pupils are equal, round and reactive to light, extraocular movements are intact and normal conjunctiva. Ears, nose, mouth and throat: Tympanic membranes clear, oral mucosa moist, no pharyngeal erythema orexudate, Sinus: Right, maxillary, mild, tenderness and Nose: Bilateral nares, moderate, discharge. Cardiovascular: Regular rate and rhythm and Normal peripheral perfusion. Respiratory: Lungs are clear to auscultation, respirations are non-labored, breath sounds are equal and Symmetrical chest wall expansion. Gastrointestinal: Soft, Nontender, Non distended and Normal bowel sounds. Back: Normal range of motion. Musculoskeletal: Normal ROM. normal strength. no deformity. Neurological: Alert and oriented to person, place, time, and situation, No focal neurological deficit observed, normal motor observed, normal speech observed and normal coordination observed. Psychiatric: Cooperative, appropriate mood & affect and normal judgment. Medical Decision Making Differential Diagnosis:Upper respiratory infection, rhinitis, sinusitis, not epistaxis. Documents reviewed:Emergency department nurses' notes, prior records. Impression and Plan Diagnosis Sinusitis Acute NOS (Discharge, Emergency medicine, Medical) Plan Condition: Stable. Disposition: Discharged: Time 10/20/2013 01:16:00, to home. Prescriptions: doxycycline, Brinkhaven. Patient was given the following educational materials: SINUSITIS, Abx Tx. Follow up with: Follow up with primary care provider Within As Needed. Counseled: Patient, Regarding diagnosis, Regarding diagnostic results, Regarding treatment plan, Regarding prescription, Patient indicated understanding of instructions. Electronically Signed By: LEEANNE CARROLL MD On: 10/27/2013 02:58 PM Modified by and Electronically Signed by: LEEANNE CARROLL MD On: 10/27/2013 02:58 PM Source: [facility] POWERCHART Document Id: [id number]} Conversion, Historical Provider Ser - 10/20/2013 1:03 AM CDT ED Primary Assessment Document Has Been Updated ED Primary Assessment Entered On: 10/20/2013 1:08 CDT Performed On: 10/20/2013 1:03 CDT by SKYLA FONTAINE RN Reason For Visit (As Of: 10/20/2013 01:08:07 CDT) Diagnoses(Active) UC - Sinus Pain or Congestion Date: 10/20/2013 ; Diagnosis Type: Reason For Visit ; Confirmation: Complaint of ; Clinical Dx: UC - Sinus Pain or Congestion ; Classification: Medical ; Clinical Service:Emergency medicine ; Code: PNED ; Probability: 0 ; Diagnosis Code: [id number] Triage Chief Complaint Description : Pt c/o sinus pain and pressure. Concerned he has a sinus infection. Information Given By : Patient Accompanied By : Alone Mode of Arrival ED : Private vehicle, Ambulatory Track : Medical Languages : Urdu Vital Signs Assessed : Yes Treatments Prior to Arrival : None SKYLA FONTAINE RN - 10/20/2013 1:03 CDT Vital Signs Temperature Core : 36.8 DegC(Converted to: 98.2 DegF) Peripheral Pulse Rate : 73 /min Respiratory Rate : 18 /min Systolic Blood Pressure : 141 mmHg (HI) Diastolic Blood Pressure : 86 mmHg NIBP Mean : 104 mmHg SpO2 : 97 % Oxygen Therapy : Room air SKYLA FONTAINE - 10/20/2013 1:03 CDT Pain Assessment Pain Symptoms : Yes SKYLA FONTAINE SARAH - 10/20/2013 1:03 CDT Pain Pain Assessment Grid Pain 1 Location : Nose Intensity : 5 SKYLA FONTAINE - 10/20/2013 1:03 CDT ERLINDA ERLINDA Level 1 : No ERLINDA Level 2 : No ERLINDA Level 3 : None SKYLA FONTAINE - 10/20/2013 1:03 CDT DCP GENERIC CODE Tracking Acuity : 5 -Non Urgent Tracking Group : [facility] ED SKYLA FONTAINE - 10/20/2013 1:03 CDT Allergy (As Of: 10/20/2013 01:08:07 CDT) Allergies (Active) NKA Estimated Onset Date: Unspecified ; Created By: SKYLA FONTAINE RN; Reaction Status: Active; Category: Drug ; Substance: NKA ; Type: Allergy ; Updated By: SKYLA FONTAINE RN; Reviewed Date: 10/20/2013 1:05 CDT Respiratory Airway : Patent Respirations : Unlabored Respiratory Pattern : Regular Oxygen Therapy : Room air SKYLA FONTAINE - 10/20/2013 1:03 CDT Cardiovascular Heart Rhythm : Regular Skin Color : Normal for ethnicity Skin Description : Dry Skin Temperature : Warm SKYLA FONTAINE - 10/20/2013 1:03 CDT Neurological Last Well Time Known : Not applicable Level of Consciousness : Alert Orientation : Oriented x 3 Characteristics of Speech : Appropriate for age SKYLA FONTAINE SARAH - 10/20/2013 1:03 CDT ED Psychosocial Affect/Behavior : Calm, Cooperative Domestic Abuse Concerns : None SKYLA FONTAINE SARAH - 10/20/2013 1:03 CDT Gastrointestinal Nutrition ED : Adequate SKYLA FONTAINE SARAH - 10/20/2013 1:03 CDT Musculoskeletal Fall Prevention Education Provided : Yes SKYLA FONTAINE SARAH - 10/20/2013 1:03 CDT Social Habits Tobacco Use/Currently Using : No Smoking Status : Never smoker SKYLA FONTAINE SARAH - 10/20/2013 1:03 CDT Source: [facility] [employer] Document Id: [id number] CDT!58 documented in this encounter Miscellaneous Notes Miscellaneous - Chandrika Davey R.N. - 10/20/2013 1:39 AM CDT Valuables/Belongings Valuables/Belongings Entered On: 10/20/2013 1:40 CDT Performed On: 10/20/2013 1:39 CDT by CHANDRIKA DAVEY RN Valuables/Belongings Belongings Sent Home With : patient. Home Medication Disposition : None brought in with patient CHANDRIKA DAVEY RN - 10/20/2013 1:39 CDT Source: [facility] [employer] Document Id: [id number] CDT!4 Miscellaneous - Chandrika Davey R.N. - 10/20/2013 12:55 AM CDT Facility Charge Ticket 2.0 11.0 DX Facility Charge Ticket 2.0 11.0 DX Entered On: 10/20/2013 1:40 CDT Performed On: 10/20/2013 0:55 CDT by CHANDRIKA DAVEY RN Facility Charge Ticket 2.0 11.0 DX ED Other Charges : Standard ED Encounter TVL Level Translated RTF : UC - Sinus Pain or Congestion TVL:3 TVL Level for Facility Charge Ticket : Level 3 Arrival Mode Calc : 1 Mode of Arrival ED : Private vehicle, Ambulatory [facility] Mode of Arrival Interpreted : Standard [facility] Process Management : None [facility] Order Management : None 30 Minutes Critical Care : No Nursing Notes RTF : Nursing Notes ED Primary Assessment,10/20/13 01:03,SKYLA FONTAINE RN ED Pain Assessment,10/20/13 01:39,CHANDRIKA DAVEY RN [facility] Nursing Assessment : Triage and 1-2 nursing assessments [facility] Disposition : Discharge Disposition RTF : discharge [facility] Total Points with Diagnosis Control : 5 [facility] Visit Level : 64100 Level 3 Treatments Prior to Arrival : None CHANDRIKA DAVEY RN - 10/20/2013 1:40 CDT Source: [facility] [employer] Document Id: [id number] CDT!18 documented in this encounter Plan of Treatment Upcoming Encounters Date Type Specialty Care Team Description 12/15/2021 Appointment Radiation Oncology Abilio Piña M.D. [address] [place] [phone] Isabel Lima R.N. [address] [place] [phone] 12/15/2021 Appointment Radiation Oncology Abilio Piña M.D. [address] [place] [phone] (Wo rk) documented as of this encounter Visit Diagnoses Not on filedocumented in this encounter
--- OUTSIDE RECORDS SUMMARY | 2022-01-05 08:46 | XMS_ITS | Encounter Summary ---
:1970 Author Organization [facility] Address [address] [place] [address] Care Team Providers Name Role Phone Unavailable Primary Care Provider Unavailable Reason for Referral MRI/CAT/PET Scan (Routine) - Closed Specialty Diagnoses / Procedures Referred By Contact Refer red To Contact Radiology Diagnoses [facility] Procedures MR Knee Right without IV Contrast HI MRI LWR EXT JOINT WO CNTRST HC MRI LWR EXT JOINT WO CNTRST HI MRI LWR EXT JOINT WO CNTRST P.A.-C. [address] [place] [phone] Referral ID Status Reason Start Date Expiration Date Visits Requ ested Visits Authorized [id number] Closed 12/01/2017 12/01/2018 1 1 Reason for Visit MRI/CAT/PET Scan (Routine) - Closed Specialty Diagnoses / Procedures Referred By Contact Refer red To Contact Radiology Diagnoses Pain Knee Right Patrica Vazquez [facility] Region Procedures MR Knee Right without IV Contrast HI MRI LWR EXT JOINT WO CNTRST HC MRI LWR EXT JOINT WO CNTRST HI MRI LWR EXT JOINT WO CNTRST P.A.-C. [address] [place] [phone] Referral ID Status Reason Start Date Expiration Date Visits Requ ested Visits Authorized [id number] Closed 12/01/2017 12/01/2018 1 1 Encounter Details Date Type Department Care Team Description 12/02/2017 Hospital Encounter Department of Patrica Vazquez Knee Right Radiology in [facility] Leslie Alberts [address] [phone] Social History Tobacco Use Types Packs/Day Years Used Date Smoking Tobacco: Every Day Cigarettes 0.5 Smokeless Tobacco: Never Sex Assigned at Date Recorded Male 08/07/2019 10:59 AM CDT documented as of this encounter Plan of Treatment Upcoming Encounters Date Type Specialty Care Team Description 12/15/2021 Appointment Radiation Oncology Abilio Piña M.D. [address] [place] [phone] Isabel Lima R.N. [address] [place] [phone] 12/15/2021 Appointment Radiation Oncology Abilio Piña M.D. [address] [place], [place] [phone] (Wo rk) documented as of this encounter Procedures Procedure Name Priority Date/Time Associated Comments Diagnosis MR KNEE RIGHT RAD - Routine 12/02/2017 4:50 Pain Knee Right Results for this WITHOUT IV (most inpatients PM CDT procedure a re in CONTRAST and all the results outpatients) section. documented in this encounter Results MR Knee Right without IV Contrast (12/02/2017 4:50 PM CDT) Anatomical Region Laterality Modality Lower Extremity, Knee, Musculoskeletal RST LOS Right Magnetic Resonance Specimen (Source) Anatomical Collection Method Collection Time Re ceived Time Location / / Volume Laterality 12/02/2017 4:51 PM CDT Impressions 12/02/2017 5:01 PM CDT IMPRESSION: 1. ??Nondisplaced subcortical fracture l ateral tibial plateau with associated bone bruise. Mild degenerative arthritis right knee. Narrative 12/02/2017 5:01 PM CDT EXAM: MR KNEE RIGHT WITHOUT IV CONTRAST COMPARISON:None FINDINGS: MRI examination right knee dem onstrates a small bone bruise involving the anterior aspect of the lateral tibia l plateau. There is a linear region of decreased T1 marrow signal inferior to t he articular cortex of the lateral tibial plateau consistent with a nondisp laced fracture. There is mild degenerative arthritis in the right knee with mild thinning of the articular cartilage of the patella. Meni sci, cruciate ligaments, and collateral ligament complexes are normal in appeara nce. Moderate knee joint effusion. Procedure Note Jamarcus Garcia M.D. - 12/02/2017For matting of this note might be different from the original. EXAM: MR KNEE RIGHT WITHOUT IV CONTRAST COMPARISON:None FINDINGS: MRI examination right knee dem onstrates a small bone bruise involving the anterior aspect of the lateral tibia l plateau. There is a linear region of decreased T1 marrow signal inferior to t he articular cortex of the lateral tibial plateau consistent with a nondisp laced fracture. There is mild degenerative arthritis in the right knee with mild thinning of the articular cartilage of the patella. Meni sci, cruciate ligaments, and collateral ligament complexes are normal in appeara nce. Moderate knee joint effusion. IMPRESSION: 1. Nondisplaced subcortical fracture lat eral tibial plateau with associated bone bruise. Mild degenerative arthritis right knee. Patrica Vazquez P.A.-C. [facility] MRI PROCEDURES documented in this encounter Visit Diagnoses Diagnosis Pain Knee Right documented in this encounter
--- OUTSIDE RECORDS SUMMARY | 2022-01-05 08:46 | XMS_ITS | Encounter Summary ---
:1970 Author Organization [facility] Address [address] [place] [address] Care Team Providers Name Role Phone Unavailable Primary Care Provider Unavailable Encounter Details Date Type Department Care Team Description 12/01/2017 Hospital Encounter Department of Patrica Vazquez Knee Right Radiology in [place] [address] [place] [address] Social History Tobacco Use Types Packs/Day Years Used Date Smoking Tobacco: Every Day Cigarettes 0.5 Smokeless Tobacco: Never Sex Assigned at Date Recorded Male 08/07/2019 10:59 AM CDT documented as of this encounter Plan of Treatment Upcoming Encounters Date Type Specialty Care Team Description 12/15/2021 Appointment Radiation Oncology Abilio Piña M.D. [address] [place] [phone] Isabel Lima R.N. [address] [place] [phone] 12/15/2021 Appointment Radiation Oncology Abilio Piña M.D. [address] [place] [phone] (Wo rk) documented as of this encounter Procedures Procedure Name Priority Date/Time Associated Comments Diagnosis DX KNEE RIGHT 4+ RAD - Routine 12/01/2017 1:12 Pain Knee Right Resu lts for this VIEWS (most inpatients PM CDT procedure a re in and all the results outpatients) section. documented in this encounter Results DX Knee Right 4+ Views (12/01/2017 1:12 PM CDT) Anatomical Region Laterality Modality Lower Extremity, Knee, Musculoskeletal RST LOS Right Digital Radiography Specimen (Source) Anatomical Collection Method Collection Time Re ceived Time Location / / Volume Laterality 12/01/2017 1:15 PM CDT Impressions 12/01/2017 1:16 PM CDT IMPRESSION: No acute right knee osseous abnormality. Narrative 12/01/2017 1:16 PM CDT EXAM: DX KNEE RIGHT 4+ VIEWS COMPARISON: None FINDINGS: There is no acute right knee o sseous abnormality. Bone mineralization is decreased. The visualized joint space s are preserved. Procedure Note Marc Silva M.D. - 12/01/2017Form atting of this note might be different from the original. EXAM: DX KNEE RIGHT 4+ VIEWS COMPARISON: None FINDINGS: There is no acute right knee o sseous abnormality. Bone mineralization is decreased. The visualized joint space s are preserved. IMPRESSION: No acute right knee osseous abnormality. Patrica Vazquez P.A.-C. IM DIAGNOSTIC IMAGING PROC EDURES documented in this encounter Visit Diagnoses Diagnosis Pain Knee Right documented in this encounter
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
--- OUTSIDE RECORDS SUMMARY | 2022-01-05 08:46 | XMS_ITS | Encounter Summary ---
:1970 Author Organization [facility] Address [address] [place] [address] Care Team Providers Name Role Phone Unavailable Primary Care Provider Unavailable Encounter Details Date Type Department Care Team Description 10/04/2016 Hospital Encounter HX [facility] Genna Hinojosa M.D., M.P.H. [address] [place] [phone] (Wo rk) Social History Tobacco Use Types Packs/Day Years Used Date Smoking Tobacco: Never Sex Assigned at Date Recorded Male 08/07/2019 10:59 AM CDT documented as of this encounter Plan of Treatment Upcoming Encounters Date Type Specialty Care Team Description 12/15/2021 Appointment Radiation Oncology Abilio Piña M.D. [address] [place] [phone] Isabel Lima, [place] [address] [place] [phone] 12/15/2021 Appointment Radiation Oncology Abilio Piña M.D. [address] [place] [phone] (Wo rk) documented as of this encounter Visit Diagnoses Not on filedocumented in this encounter
== END 2021-12-08 13:19 | disposition home or self-care (01) ==
LOC: OP CLINIC 13:21
PROVIDERS: PCP Internal Medicine Hematology & Oncology; Visit Provider Surgery
DX: R93.3 Abnormal findings on diagnostic imaging of other parts of digestive tract (principal); C20 Malignant neoplasm of rectum; K62.89 Other specified diseases of anus and rectum
CPT/HCPCS: 45331; 88305; J2250; J3010

== ENCOUNTER 2021-12-22 15:45 | Outpatient (RCR) | payer OTHER, SELFPAY ==
[2021-12-15 10:21] LABS: Creatinine* 0.9 mg/dL (0.5-1.5); Est. Creatinine Clearance* 86.53; Estimated Glomerular Filt Rate 103 ml/min
--- NOTE | 2021-12-16 15:48 | ONC.NURNOTE ---
Pt scheduled for blood draw on 12/21/21. Pt states he will start xeloda on 12/22/21.
[2021-12-22 16:15] LABS: Albumin* 4.3 g/dL (3.3-5.0); Chloride* 97 mmol/L (96-114)
[2021-12-22 16:16] LABS: Potassium* 3.3 mmol/L (3.6-5.1); Sodium* 132 mmol/L (135-149)
[2021-12-22 16:18] LABS: Alanine Aminotransferase* 19 U/L (4-50); Alkaline Phosphatase* 92 U/L (40-150); Aspartate Amino Transferase* 34 U/L (12-35); Bilirubin Total* 0.4 mg/dL (0.1-1.5); Blood Urea Nitrogen* 10 mg/dL (7-30); Carbon Dioxide* 25 mmol/L (20-32); Est. Creatinine Clearance* 77.88; Estimated Glomerular Filt Rate 91 ml/min; Glucose* 107 mg/dL (60-115); Total Protein* 7.1 g/dL (6.0-8.3)
[2021-12-22 16:19] LABS: Calcium* 8.9 mg/dL (8.4-10.6)
[2021-12-23 08:18] LABS: Basophils Absolute Auto 0.07 K/uL (0.00-0.30); Basophils Percent Auto 0.9 % (0.0-3.0); Eosinophils Percent Auto 7.6 % (0.0-7.0); Hematocrit 44.6 % (37.0-53.0); Hemoglobin* 15.1 gm/dL (13.5-17.5); Immature Granulocytes Abs Auto 0.01 K/uL (0.00-0.30); Lymphocytes Percent Auto 18.3 % (20-44); Mean Corpuscular HGB Conc 34 gm/dL (32-36); Mean Corpuscular Hemoglobin 32 pg (26-34); Mean Corpuscular Volume 96 fL (80-100); Monocytes Percent Auto 10.3 % (0.0-11.0); Neutrophils Absolute Auto 5.02 K/uL (1.7-7.0); Neutrophils Percent Auto 62.8 % (42.0-72.0); Platelet Count* 243 K/uL (140-440); Red Blood Count 4.66 m/uL (4.30-5.90); White Blood Count* 7.99 K/uL (4.50-11.00)
--- NOTE | 2021-12-23 10:58 | ONC.NURNOTE ---
Labs reviewed by RN and discussed with Alaina potassium supplement to be sent to pharmacy results called to Rhys with instruction to increase sodium in diet and start the KCL supplement labs recheck in one week
[2021-12-24 12:05] LABS: Carcinoembryonic Antigen 4.1 ng/mL (<=3.8)
[2021-12-25 19:58] LABS: Slide Review Reflex No
== END 2021-12-27 23:59 | disposition home or self-care (01) ==
LOC: CCIC 15:45
PROVIDERS: Clinical Nurse Specialist; Visit Provider Internal Medicine Hematology & Oncology
DX: C20 Malignant neoplasm of rectum (principal); C77.2 Secondary and unspecified malignant neoplasm of intra-abdominal lymph nodes
CPT/HCPCS: 36415; 36591; 80053; 82378; 82565; 85025; 99211; 99212; 99215

== ENCOUNTER 2022-04-08 14:00 | Outpatient (CLI) | payer OTHER, SELFPAY ==
--- NOTE | 2022-04-08 14:00 | CRLHL7_ITS ---
For Patients: As a result of the 21st Century Cures Act, medical imaging exams and procedure reports are released immediately into your electronic medical record. You may view this report before your referring provider. If you have questions, please contact your health care provider. INDICATION: Rectal cancer TECHNIQUE: Following IV injection of FDG with uptake of 56 minutes, noncontrast CT scan followed by a PET scan were acquired along the length of body from the head to the upper thighs. Noncontrast CT was used for anatomic localization and photon attenuation correction of the PET-CT scan. - Blood glucose level: 91. - FDG dose (mCi): 12.75. COMPARISON: 12/03/2021 PET-CT. FINDINGS: Head/Neck: Tracer avid bilateral supraclavicular lymph nodes, increased on the right and new on the left. Right supraclavicular lymph node SUV max of 8.3 previously 3.5. Left supraclavicular lymph node SUV max of 8.3, new from prior. Resolution of tracer avid left upper cervical lymph node. - Chest: Mild esophageal uptake SUV max of 2.8 previously 3.7. Multiple new bilateral pulmonary nodules, some which are tracer avid suspicious for metastases. The largest in the right lower lobe with SUV max of 2.5 measures 0.9 cm in diameter. - Background liver parenchyma with SUV mean of 2.0. Resolution of left periaortic, aortocaval, left external iliac lymph nodes. Left inguinal lymph node with SUV max of 2.6 previously 3.5. Rectal lesion with SUV max of 9.5 previously 23.6 measuring 3.0 x 2.3 cm previously 3.3 x 2.2 cm. - Musculoskeletal: No tracer avid bone lesion. - CT findings: Bilateral maxillary sinus mucosal thickening is again noted. Chest port tip at the cavoatrial junction. Pulmonary nodules as above. No pleural effusion or pneumothorax. Hepatic steatosis. Rectal mass as above. Presacral edema. Diffuse bladder wall thickening. Stable right anterior chest wall subcutaneous cyst. Degenerative changes in the spine. IMPRESSION : 1. Multiple new pulmonary nodules highly suspicious for metastases. 2. Tracer avid bilateral supraclavicular lymph nodes, increased on the right and new on the left suspicious for metastases. 3. Rectal mass with decreased uptake compared to prior. 4. Resolution of multiple abdominal lymph nodes. Left inguinal lymph node with decreased uptake compared to prior. Dictated by Michele Ron MD @ 04/16/2022 12:04:14 PM (Electronically Signed)
--- OUTSIDE RECORDS SUMMARY | 2022-04-08 14:02 | XMS_ITS | Encounter Summary ---
:1970 Author Organization [facility] Address [address] [place] [address] Care Team Providers Name Role Phone Unavailable Primary Care Provider Unavailable Reason for Referral Outpatient (Routine) - Authorized Specialty Diagnoses / Procedures Referred By Contact Refer red To Contact Radiation Oncology [facility] .[facility] [address] [phone] Referral ID Status Reason Start Date Expiration Date Visits V isits Requested Authorized [id number] Authorized 12/11/2021 12/11/2022 10 10 Reason for Visit Outpatient (Routine) - Authorized Specialty Diagnoses / Procedures Referred By Contact Refer vita To Contact Radiation Oncology Elloit Piña M .D. [address] [phone] Referral ID Status Reason Start Date Expiration Date Visits V isits Requested Authorized [id number] Authorized 12/11/2021 12/11/2022 10 10 Encounter Details Date Type Department Care Team Description 01/22/2022 Hospital Encounter Department of Radiation Fortunato Piña, [place] [address] [phone] Social History Tobacco Use Types Packs/Day Years [...] Taken Comments Blood Pressure - - Pulse - - Temperature 36.2 ??C (97.2 ??F) 01/22/2022 9:15 AM CDT Respiratory Rate - - Oxygen Saturation - - Inhaled Oxygen Concentration - - Weight 63.4 kg (139 lb 12.4 oz) 01/22/2022 9:15 AM CDT Height - - Body Mass Index 20.06 08/14/2020 8:29 AM CDT documented in this encounter Medications at Time of Discharge Medication Sig Dispensed Refills Start Date End Date capecitabine (XELODA) 500 0 12/15/2021 mg tablet diphenhydrAMINE (BENADRYL) Take by mouth every 0 07/01/2020 25 mg capsule 6 (six) hours. As needed for seasonal allergies (hayfever) ibuprofen (ADVIL,MOTRIN) Take 200 mg by 0 200 mg tablet mouth every 6 (six) hours as needed for pain (as needed). ondansetron (ZOFRAN) 8 mg Take 1 tablet (8 mg 30 tablet 1 0 12/15/2021 12/15/2022 tablet total) by mouth every 8 (eight) hours as needed for nausea or vomiting. oxyCODONE-acetaminophen Take 1 tablet by 20 tablet 0 202101/27/2022 (PERCOCET) 5-325 mg per mouth every 6 (six) tabletIndications: hours as needed for Prolonged Acute pain Indication: Pain/Traumatic Injury Prolonged Acute Pain/Traumatic Injury. documented as of this encounter Progress Notes Yodit Odell R.N. - 01/22/2022 8:15 AM CDT SUBJECTIVE REASON FOR VISIT Evaluation for side effects while receiving radiation treatment Nurse visit HISTORY OF PRESENT ILLNESS Mr. Rhys Real is a 51 y.o. male with stage IV rectal adenocarcinoma. He received neoadjuvant chemotherapy. He is now receiving concurrent chemoradiotherapy with intensity modulated radiotherapy to the rectal tumor, involved lymph nodes in the inguinal region, pelvis and periaortic chain with an integrated boost to regional lymph nodes. Xeloda is being managed by Dr. Graham. Weekly labs are being checked on at [facility]. Treatment Course: 1xRectum Plan ID Fractions Dose / Fraction (cGy) Dose Treated (cGy) Dose Planned (cGy) First Treatment Last Treatment Elapsed Days [id number] 225 [id number] [id number] 12/24/2021 01/15/2022 [id number] 200 1000 1600 01/18/2022 01/22/2022 4 Course Summary 12/24/2021 01/22/2022 29 Patient seen for skin check today. Patient reports that skin discomfort has not worsened over that last couple days. He does report slightly more pruritis in the rectal region and surrounding area. He is still taking Percocet once daily to manage discomfort. He verbalizes that he is doing once daily Xeroform application that he leaves on for 5-6 hour at night. Then 3x daily he applies a liberal amount of Aquaphor to his groin, perineum and rectal area. LABS December 31, 2021: WBC 7.23; Hgb 15.1; ANC 7.4; Plt 221,000 January 14, 2022: WBC 5.11; Hgb 13.8; ANC 3.8; Plt 155,000 OBJECTIVE Temp 36.2 ??C (Temporal) Wt 63.4 kg BMI 20.06 kg/m?? PHYSICAL EXAM General: Alert and oriented in no apparent distress. Skin: Moderate erythema to left and right groin area. Quarter size area of dry desquamation noted toright groin area. Moist desquamation and erythema to perineum. Increased area of moist desquamation noted to rectal region. ASSESSMENT / PLAN Patient will continue with 3-4x daily Aquaphor application. Pt encouraged to increases Xeroform application to 2x daily and apply white vinegar soaks 2-4x daily. Patient verbalized understanding of plan. He will continue with current pain management regimen. He will contact us with any questions or concerns. We will continue with radiation treatment as planned. Signed by: Yodit Odell R.N. 01/22/2022 9:17 AM CDT documented in this encounter Plan of Treatment Scheduled Referrals Name Type Priority Associated Order Schedule Diagnoses Radiation Oncology Outpatient Referral Routine On ce for 1 nurse visit Occurrences sta rting (clinic) 01/22/2022 unti l 01/22/2022 documented as of this encounter Visit Diagnoses Not on filedocumented in this encounter
--- OUTSIDE RECORDS SUMMARY | 2022-04-08 14:02 | XMS_ITS | Encounter Summary ---
:1970 Author Organization [facility] Address [address] [place] [address] Care Team Providers Name Role Phone Unavailable Primary Care Provider Unavailable Encounter Details Date Type Department Care Team Description 02/23/2022 Clinical Communication Department of Elliot Piña Radiation Oncology natalie Paul M.D. [facility] [address] [facility] [address] [place] [id number] Social History Tobacco Use Types Packs/Day Years Used Date Smoking Tobacco: Every Day Cigarettes 0.5 S tarted: 1991 Smokeless Tobacco: Never Alcohol Use Standard Drinks/Week Comments Yes 14 (1 standard drink = 0.6 oz pure alcoh ol) Sex Assigned at Date Recorded Male 08/07/2019 10:59 AM CDT documented as of this encounter Miscellaneous Notes Telephone Encounter - Yodit Odell R.N. - 02/23/2022 2:09 PM CDT SUBJECTIVE CHIEF COMPLAINT / REASON FOR CALL Patient was calling because he is needing a refill on his pain medication. Patient reports that he has 8/10 rectal pain at night when getting up to go to the bathroom. Patient verbalizes there is stillan open area in the rectal region. Overall skin has healed since completing treatment. He continues to apply Aquaphor to treatment area. PLAN The following information was provided: Patient symptoms were reviewed with Vidhi Akhtar PA-C today. A refill for 10 tablets of Percocet were sent to patient's preferred pharmacy. If patient continues to experience pain we recommend that he contact his Medical Oncology care team for follow-up. Information/Education: patient/caller able to teach back The following references were used: provider Vidhi Akhtar PA-C Telephone Encounter - Guerline Jeffers - 02/23/2022 12:59 PM CDT Caller: Patient Is there a valid authorization to speak with caller? Yes Primary Radiation Oncologist: Dr. Piña Reason for call: He is calling to request a refill for pain medication. He states he is feeling better but has some discomfort at night that is making hard to sleep. Phone number: [phone] Is it okay to leave a voicemail on answering machine with test results? No Pharmacy (if medication related): [id number] - [facility] [address] [facility] [facility] [phone] [id number] - [place], [place] - [address] AT [facility] & [facility] [address] [facility] [address] Guerline Jeffers documented in this encounter Plan of Treatment Not on filedocumented as of this encounter Visit Diagnoses Not on filedocumented in this encounter
--- OUTSIDE RECORDS SUMMARY | 2022-04-08 14:02 | XMS_ITS | Encounter Summary ---
:1970 Author Organization [facility] Address [address] [place] [address] Care Team Providers Name Role Phone Unavailable Primary Care Provider Unavailable Reason for Visit Radiation Therapy (Routine) - Authorized Specialty Diagnoses / Procedures Referred By Contact Refer red To Contact Diagnoses Malignant Neoplasm Of Rectum (HCC) Elliot Piña M.D. [facility] Radiation Oncology Procedures Prior Auth Rad Tx NV IMRT COMPLEX [address] [facility] [place] [address] [address] [facility] [place] [address] Referral ID Status Reason Start Date Expiration Date Visits V isits Requested Authorized [id number] Authorized 12/21/2021 12/11/2022 28 28 Encounter Details Date Type Department Care Team Description 01/26/2022 Hospital Encounter Department of Radiation Fortunato Piña, Oncology in [facility] [place] [address] [facility] [address] [place] [phone] [phone] Social History Tobacco Use Types Packs/Day Years Used Date Smoking Tobacco: Every Day Cigarettes 0.5 S tarted: 1991 Smokeless Tobacco: Never Alcohol Use Standard Drinks/Week Comments Yes 14 (1 standard drink = 0.6 oz pure alcoh ol) Sex Assigned at Date Recorded Male 08/07/2019 10:59 AM CDT documented as of this encounter Medications at Time of Discharge [...] Pain/Traumatic Injury. documented as of this encounter Plan of Treatment Not on filedocumented as of this encounter Visit Diagnoses Not on filedocumented in this encounter
--- OUTSIDE RECORDS SUMMARY | 2022-04-08 14:02 | XMS_ITS ---
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 on 08/14/2020 Current Oncology Plans No current plan information found. Past Plans No past plan information found. Radiation Treatments Plan Last Treated Elapsed Days Fractions Prescribed Prescribed Total On Treated Fraction Dose Dose [id number] 01/27/2022 34 8 of 8 200 cGy 1,600 cGy [id number] 01/15/2022 22 17 of 25 225 cGy 5,625 cGy Reference Point Last Treated On Elapsed Days Session Dose Total Dos e [id number] 01/27/2022 34 200 cGy 5,000 cGy [id number] 01/15/2022 22 225 cGy 3,825 cGy
--- OUTSIDE RECORDS SUMMARY | 2022-04-08 14:02 | XMS_ITS | Encounter Summary ---
:1970 Author Organization [facility] Address [address] [place] [address] Care Team Providers Name Role Phone Unavailable Primary Care Provider Unavailable Reason for Visit Radiation Therapy (Routine) - Authorized Specialty Diagnoses / Procedures Referred By Contact Refer red To Contact Diagnoses Malignant Neoplasm Of Rectum (HCC) Elliot Piña M.D. [facility] Radiation Oncology Procedures Prior Auth Rad Tx [place] IMRT COMPLEX [address] [facility] [place] [address] [address] [facility] [place] [address] Referral ID Status Reason Start Date Expiration Date Visits V isits Requested Authorized [id number] Authorized 12/21/2021 12/11/2022 28 28 Encounter Details Date Type Department Care Team Description 01/25/2022 Hospital Encounter Department of Radiation Fortunato Piña, Oncology in [facility] [place] [address] [facility] [address] [place] [phone] [phone] Social History Tobacco Use Types Packs/Day Years [...]
--- OUTSIDE RECORDS SUMMARY | 2022-04-08 14:02 | XMS_ITS | Encounter Summary ---
:1970 Author Organization [facility] Address [address] [place] [address] Care Team Providers Name Role Phone Unavailable Primary Care Provider Unavailable Reason for Visit Radiation Therapy (Routine) - Authorized Specialty Diagnoses / Procedures Referred By Contact Refer red To Contact Diagnoses Malignant Neoplasm Of Rectum (HCC) Elliot Piña M.D. [facility] [[email or web address] Radiation Oncology Procedures Prior Auth Rad Tx [place] IMRT COMPLEX [address] [facility] [place] [address] [address] [facility] [address] Referral ID Status Reason Start Date Expiration Date Visits V isits Requested Authorized [id number] Authorized 12/21/2021 12/11/2022 28 28 Encounter Details Date Type Department Care Team Description 01/27/2022 Hospital Encounter Department of Radiation Fortunato Piña, Oncology in [facility] [place] [address] [facility] [address] [place] [phone] [phone] Social History Tobacco Use Types Packs/Day Years [...] or vomiting. oxyCODONE-acetaminophen Take 1 tablet by 30 tablet 0 202102/23/2022 (PERCOCET) 5-325 mg per mouth every 6 (six) tabletIndications: hours as needed for Prolonged Acute pain Indication: Pain/Traumatic Injury Prolonged Acute Pain/Traumatic Injury. documented as of this encounter Plan of Treatment Not on filedocumented as of this encounter Visit Diagnoses Not on filedocumented in this encounter
--- OUTSIDE RECORDS SUMMARY | 2022-04-08 14:02 | XMS_ITS | Clinical Summary ---
:1970 Author Organization [employer] [facility] [place] [address] Care Team Providers Name Role Phone Pcp, No Primary Care Provider Unavailable Allergies No known active allergies Medications Medication Sig Dispensed Refills Start Date End Date Status triamcinolone Apply topically to 30 g 3 12/24/2016 Active (ARISTOCORT) 0.1 % affected area(s) 2 ointmentIndications: times daily. Atopic dermatitis, unspecified type Active Problems Problem Noted Date Atopic dermatitis 12/24/2016 Non-seasonal allergic rhinitis due to pollen 7 Immunizations Name Administration Dates Next Due Tdap 12/24/2016 Family History Medical History Relation Name Comments Heart failure Father Alzheimer's disease Mother Relation Name Status Comments Father Alive Mother Alive Social History Tobacco Use Types Packs/Day Years Used Date Current Every Day Smoker Cigarettes 0.75 Smokeless Tobacco: Never Used Tobacco Cessation: Counseling Given: Yes Alcohol Use Standard Drinks/Week Comments Yes 0 (1 standard drink = 0.6 oz pure alcoho l) Sex Assigned at Date Recorded Not on file Obstetrics History Last Filed Vital Signs Vital Sign Reading Time Taken Comments Blood Pressure 116/74 12/24/2016 2:47 PM CDT Pulse 69 12/24/2016 2:47 PM CDT Temperature 36.4 ??C (97.6 ??F) 12/24/2016 2:47 PM CDT Respiratory Rate 17 03/09/2016 11:31 PM CDT Oxygen Saturation 99% 12/24/2016 2:47 PM CDT Inhaled Oxygen Concentration - - Weight 64.3 kg (141 lb 11.2 oz) 12/24/2016 2:47 PM CDT Height 177.8 cm (5' 10) 12/24/2016 2:47 PM CDT Body Mass Index 20.33 12/24/2016 2:47 PM CDT Plan of Treatment Health Maintenance Due Date Last Done Comments COVID-19 vaccine series (#1) 1970 Hepatitis C screening for age 18-79 1988 Colonoscopy through age 75 2015 Lipids for age 45-75 2015 BMI (ht and wt on same day) for age 18+ 12/24/2017 12/25/19 17 Depression screening for age 12+ 12/24/2017 12/24/2016 Zoster (shingles) series for age 50+ (1 of 2) 2020 Influenza for age 50-64 01/28/2022 Tetanus booster 12/24/2026 12/24/2016 Tdap Completed 12/24/2016 Results Not on filefrom Last 3 Months Insurance Payer Benefit Plan / Subscriber ID Effective Dates Phone Addre ss Type Group [employer] [id number] 2015-Prese [address] [place] [address] [facility] [employer] INDIVIDUAL [id number] 2021-Presen [address] [place] [address] (Home) [place] [id number] [employer] Motor Vehicle Self [address] (Home) [place] [id number] Care Teams 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
--- OUTSIDE RECORDS SUMMARY | 2022-04-08 14:02 | XMS_ITS | Encounter Summary ---
:1970 Author Organization [facility] Address [address] [place] [phone] Care Team Providers Name Role Phone Unavailable Primary Care Provider Unavailable Reason for Referral Radiation Therapy (Routine) - Authorized Specialty Diagnoses / Procedures Referred By Contact Refer red To Contact Diagnoses Malignant Neoplasm Of Rectum (HCC) Elliot Piña M.D. [facility] Procedures Management Visit [address] [place] [phone] Referral ID Status Reason Start Date Expiration Date Visits V isits Requested Authorized [id number] Authorized 12/11/2021 12/11/2022 10 10 Reason for Visit Radiation Therapy (Routine) - Authorized Specialty Diagnoses / Procedures Referred By Contact Refer red To Contact Diagnoses Malignant Neoplasm Of Rectum (HCC) [facility] Procedures Management Visit [address] [place] [phone] Referral ID Status Reason Start Date Expiration Date Visits V isits Requested Authorized [id number] Authorized 12/11/2021 12/11/2022 10 10 Encounter Details Date Type Department Care Team Description 01/27/2022 Hospital Encounter Department of Elliot Piña Neoplasm Radiation Oncology [facility] Of Rectum (HCC) in [place], [address] [place] [address] [address] [facility] [address] [place], [place] [phone] (Work) [phone] Social History Tobacco Use Types Packs/Day Years [...] Sign Reading Time Taken Comments Blood Pressure 133/74 01/27/2022 8:28 AM CDT Pulse 66 01/27/2022 8:28 AM CDT Temperature 36.1 ??C (96.9 ??F) 01/27/2022 8:28 AM CDT Respiratory Rate - - Oxygen Saturation - - Inhaled Oxygen Concentration - - Weight 61.9 kg (136 lb 7.4 oz) 01/27/2022 8:28 AM CDT Height - - Body Mass Index 19.58 08/14/2020 8:29 AM CDT documented in this [...] documented as of this encounter Progress Notes Elliot Piña M.D. - 01/27/2022 8:45 AM CDT SUBJECTIVE REASON FOR VISIT Evaluation for side effects while receiving radiation treatment for 1. Malignant Neoplasm Of Rectum (HCC) SUPERVISED BY: Dr. Piña HISTORY OF PRESENT ILLNESS Mr. Rhys Real [...] Weekly labs are being checked on at [facility]. Treatment Course: 1xRectum Plan ID Fractions Dose / Fraction (cGy) Dose Treated (cGy) Dose Planned (cGy) First Treatment Last Treatment Elapsed Days [id number] 225 [id number] 12/24/2021 01/15/2022 [id number] 200 1600 1600 01/18/2022 01/27/2022 9 Course Summary 12/24/2021 01/27/2022 34 Oncology History Malignant Neoplasm Of Rectum (HCC) 01/2020 Other The patient started to develop pelvic pressure with blood in his stools. Baseline bowel movements approximately 2-3 per day started increasing up to 5-6 per day. 07/01/2020 Other The patient presented to establish care with Dr. Nory Rodriguez. He reported blood in the stool off and on for the last 6 months. He also noted difficulty with urination when sitting. The patient also had concern about a penile fracture and had noticed a bulging in the left pelvis. Physical examination demonstrated over the left pelvis/pubic bone was a soft mass. Left-sided lymphadenopathy. 07/22/2020 Surgery and Procedures Colonoscopy was performed by Dr. Uziel Britton. Rectal exam demonstrated circumferential nodularityand firmness at the anal verge. The ileocecal [...] an area that almost seemed to be some necrosis. Pathology of the rectum demonstrated adenocarcinoma with accompanying fragment of tubular adenoma. Pathology ofthe cecum, ascending colon, and sigmoid colon polyps demonstrated tubular adenoma. 07/22/2020 Clinical Stage Staging form: Colon And Rectum, AJCC 8th Edition - Clinical stage from 07/22/2020: Stage IVB (cT3, cN2b, pM1b) Histopathologic type: Adenocarcinoma, NOS Stage prefix: Initial diagnosis Total positive nodes: 9 Stage used in treatment planning: Yes National guidelines used in treatment planning: Yes Type of national guideline used in treatment planning: NCCN 07/25/2020 Other CEA 5.1 ng/mL 07/25/[address] scan of the chest, abdomen, and pelvis demonstrated eccentric rectal wall thickening that extended into the perirectal fat on the right side, but did not definitely contact the levator ani muscle. There were no enlarged perirectal lymph nodes. Enlarged lymph nodes were present in the left groin and adjacent to the left common femoral artery in the pelvis. Lymph nodes in the left groin measured upto 1.6 cm. There was also an enlarged left obturator node measuring 2.4 x 1.0 cm. There was a mildlyenlarged left periaortic lymph node measuring 8 mm. There were also mildly enlarged left common iliac nodes. Indeterminate 7 mm solid noncalcified right lower lobe nodule. 07/25/2020 Surgery and Procedures Flexible sigmoidoscopy demonstrated a circumferential, near obstructing mass lesion of the distal rectum. The distal extent of the lesion was growing into and encroaching upon the upper aspects of theanal canal. What was seen of the sigmoid, upper, and mid rectum was normal. In the distal third of the rectum, there was a very large, circumferential mass lesion that was extending into or encroachingupon the upper aspects of the anal canal. 07/30/[address] Michele Corona where digital [...] no evidence of invasion into the prostate. Therewere numerous pathologically enlarged lymph nodes seen throughout the mesorectum consistent with metastatic lymphadenopathy. 07/30/2020 Biopsy/Pathology Core biopsies of one of the enlarged lymph nodes of the left inguinal chain was performed. Pathology of the left inguinal lymph node demonstrated metastatic colon adenocarcinoma. 08/04/2020 Imaging PET-CT scan demonstrated hypermetabolic known rectal cancer with extensive hypermetabolic metastatic lymph nodes in the left abdomen and pelvis. Right lower lobe nodule noted on recent CT was not hypermetabolic and therefore did not likely represent a metastasis. There were nonenlarged but mildly hype rmetabolic upper mediastinal and left supraclavicular lymph nodes. These could also represent sites of metastases. 08/06/2020 Imaging MRI of the pelvis demonstrated a semi circumferential tumor of the rectum, 2.4 cm from the anal verge. It extended 1.6 cm below the anorectal junction. It was below the anterior peritoneal reflection.The tumor was approximately 5.5 cm in craniocaudal length and polypoid in morphology. The tumor involved the full thickness of the muscularis propria with focal areas of less than 1 mm extension beyondthe muscularis. There was involvement of the internal sphincter. There was no clear evidence of invasion of surrounding structures. Probable extramural venous invasion. 6 mm and 7 mm mesorectal lymph nodes within the circumferential resection margin above the craniocaudal extent of the tumor. There were multiple positive left common femoral nodes. 08/11/2020 Other Medical Oncology consultation with Dr. Hank Castellanos at [facility] who discussed that since this is stage IV rectal cancer, could consider starting with systemic chemotherapy with either FOLFOXor CAPOX versus FOLFOXIRI. He also discussed the alternative to start with concurrent chemotherapy and radiation therapy. 08/14/2020 Other Radiation Oncology consultation with Dr. Elliot Piña who agreed with neoadjuvant therapy. He recommended full-dose chemotherapy prior to combined modality treatment. After initial chemotherapy is complete, he recommended treatment to the rectal tumor and involved lymph nodes in the inguinal region, pelvis, and periaortic chain to a dose of 50 Gy in 25 fractions as a simultaneous integrated boost with larger expansions to the regional lymph nodes to a dose of 45 Gy in 25 fractions utilizing intensity modulated radiotherapy (IMRT) with concurrent chemotherapy with either 5-FU or Xeloda. 08/20/2020 - 01/21/2021 Chemotherapy FOLFIRINOX x 12 cycles administered at [facility]. 11/03/[address] scan of the abdomen and pelvis demonstrated focally eccentric thickening of the rectum. Four or five mildly enhancing lymph nodes within the left inguinal canal, two of which measured between 1.2 and 1.3 cm, nonspecific. Thick walled mid distal duodenum and proximal jejunum, potentially transient. 02/12/2021 Imaging PET-CT scan demonstrated hypermetabolic rectal mass, decreased in size measuring 2.1 cm, with similar intense FDG uptake, SUV max 16.1. Decreased size and FDG uptake of left inguinal lymph nodes with low-level residual uptake which could be due to treated metastasis or mild residual tumor. Resolutionof supraclavicular, mediastinal, and retroperitoneal hypermetabolic lymph nodes. Decreased size of right lower lobe nodule measuring 3 mm. 03/30/2021 - 11/16/2021 Chemotherapy Maintenance infusional 5 FU administered at [facility]. 06/04/2021 Imaging PET-CT scan demonstrated less intense uptake within a hypermetabolic rectal mass, most consistent with residual viable tumor, SUV max 12.9. More conspicuous uptake in a left retroperitoneal and 2 leftinguinal nodes, indeterminate, though suspicious. No evidence of distant metastatic disease in the neck, chest, upper abdomen, or bony structures. 09/24/2021 Imaging PET-CT scan demonstrated low rectal and anal canal uptake with increased FDG activity, SUV max 22. No hypermetabolic mucosal rectal/presacral lymph node FDG avidity. Persistent low-level uptake withinthe retroperitoneal, left external iliac, and inguinal nodes, unchanged. Mildly increased uptake within upper cervical and low right supraclavicular lymph nodes, indeterminate. 12/03/2021 Imaging PET-CT scan demonstrated the rectal lesion measuring 3.3 x 2.2 cm, with intense uptake similar to prior, SUV max 23.6. Left periaortic retroperitoneal lymph node with moderate uptake, new, SUV max 5.1. Aortocaval lymph node with mild uptake, slightly increased, SUV max 3.5. Left external iliac chain lymph node in left inguinal lymph node with low level uptake, slightly decreased. Left upper cervicaland right supraclavicular lymph nodes with mild uptake, decreased from prior. 12/08/2021 Surgery and Procedures Flexible sigmoidoscopy was performed by Dr. Chetna Hendricks. The perianal exam findings included firm,pink tissue protruding from the anal canal, appeared to be contiguous with tumor versus swelling from adjacent tumor. A fungating nonobstructing large mass was found in the rectum. The mass was circumferential. The mass measured 3 cm in length. Oozing was present. Biopsies were taken with a cold forceps for histology. The digital rectal exam revealed a 3 cm in length firm rectal mass palpated 0-1 cm from the anal verge. The mass was circumferential. PATHOLOGY: A) RECTUM, MASS AT 0 TO 1 CM, BIOPSY: 1. Adenocarcinoma, low grade (moderately differentiated), clinically recurrent/residual 2. Background adenoma is not present 3. See comment 12/10/[address] Rosita Graham who discussed diverting ostomy versus radiation therapy. Referral to Radiation Oncology. If there is discussion of a more definitive treatment course, then potentially radiosensitizing chemotherapy. If radiation alone, then would continue with maintenance 5 FU at the completion of radiation. 12/22/2021 - Radiation Therapy Radiation Therapy Treatment Details (Noted on 12/11/2021) Site: Rectum Technique: IMRT Goal: Curative Planned Treatment Start Date: 12/22/2021 The patient was seen and examined today with Dr. Piña The patient reports that he is doing well. He denies nausea, vomiting, fevers, sores to hands/feet/mouth, dysuria, hematuria, rectal bleeding or diarrhea. He is currently taking one Imodium pill a day which has alleviated diarrhea. Patient reports 3/10 rectal pain. He takes 1-2 tablets of Percocet perday and Advil as needed for pain control. Patient applies Xeroform dressing once daily at night and applies Aquaphor 2-3x to rectal and groin area. Taking Xeloda as prescribed. LABS December 31, 2021: WBC 7.23; Hgb 15.1; ANC 7.4; Plt 221,000 January 14, 2022: WBC 5.11; Hgb 13.8; ANC 3.8; Plt 155,000 January 21, 2022: WBC 6.26; Hgb 14.4; ANC 4.7; Plt 195,000 PATIENT REPORTED SYMPTOM SCREEN FATIGUE (Scale: 0 = no fatigue; 10 = worst fatigue you can imagine): 1 PAIN (Scale: 0 = no pain; 10 = worst pain you can imagine): 3 OVERALL QUALITY OF LIFE (Scale: 0 = as bad as can be; 10 = as good as can be): 7 OBJECTIVE BP 133/74 (BP Location: Right arm, Patient Position: Sitting, Cuff Size: Regular) Pulse 66 Temp 36.1 ??C (Temporal) Wt 61.9 kg BMI 19.58 kg/m?? PHYSICAL EXAM General: Alert and oriented in no apparent distress. Skin: Moderate erythema to left and right groin area. Small areas of dry desquamation noted to rightand left groin. Increased area of moist desquamation and erythema to perineum and rectal area. 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, mediastinal, and supraclavicular lymph node metastases diagnosed June 2020 #2 12 cycles of FOLFIRINOX completed January 21, 2021 with subsequent maintenance 5-FU #3 Progression of disease into the anal canal on PET/CT scan from December 03, 2021 and flexible sigmoidoscopy from December 08, 2021 #4 Nicotine dependence without interest in cessation #5 Concurrent chemoradiotherapy initiated on December 24, 2021; completed on January 27, 2022 Due to increasing skin breakdown and irritation patient instructed on white vinegar soaks 2-4x daily, Xeroform application 2x daily and liberal Aquaphor application 4x daily. We discussed radiation related side effects should start to heal in the coming weeks. White vinegar soaks and Xeroform to continue until skin is no longer open. Aquaphor is to continue until skin is no longer red and tender. Patient verbalized understanding of plan. He will continue with current pain management regimen. We sentin a Percocet refill to patient's preferred pharmacy. Patient will follow up with for an appointment and blood tomorrow. He will contact us with any questions or concerns. Signed by: Yodit Odell R.N. 01/27/2022 8:55 AM CDT I saw and evaluated the patient and participated in the morin portions of the service. I reviewed the documentation of Yodit Odell R.N. and agree with the findings and plan. The patient appears well on exam. He is here with his significant other. His bowel movements are much improved with treatment. He is experiencing anticipated side effects including grade 1 proctitis,, grade 2 radiation dermatitis, and grade 1 pain. He completed treatment as planned today. He knows to contact us if his skin gets worse. Will continue with dressing changes and copious Aquaphor until his skin improves which should be sometime in the next week or so. He has a follow-up visit with Dr. Graham tomorrow. I will not schedule a formal follow-up in Radiation Oncology Clinic, but he knows he can contact me at any time with questions or concerns. He verbalized satisfaction with this plan. Signed by: Elliot Piña M.D. 01/27/2022 9:40 AM CDT [facility] [address] [place] [address] documented in this encounter Miscellaneous Notes Addendum Note - Chris Hood - 01/27/2022 8:45 AM CDT Encounter addended by: Chris Hood on: 01/27/2022 12:03 PM Actions taken: Letter saved documented in this encounter Plan of Treatment Scheduled Orders Name Type Priority Associated Diagnoses Order S chedule Management Visit Radiation Oncology Routine Malignant Neoplasm Once for 1 Of Rectum (HCC) Occurrences starting 01/27/2022 unti l 01/27/2022 documented as of this encounter Visit Diagnoses Diagnosis Malignant Neoplasm Of Rectum (HCC) documented in this encounter
--- OUTSIDE RECORDS SUMMARY | 2022-04-08 14:02 | XMS_ITS | Encounter Summary ---
:1970 Author Organization [facility] [place] Address [address] [place] [address] Care Team Providers Name Role Phone Unavailable Primary Care Provider Unavailable Reason for Visit Radiation Therapy (Routine) - Authorized Specialty Diagnoses / Procedures Referred By Contact Refer red To Contact Diagnoses Malignant Neoplasm Of Rectum (HCC) Elliot Piña M.D. [facility] Radiation Oncology Procedures Prior Auth Rad Tx [place] IMRT COMPLEX [address] [facility] [place] [phone] [facility] [place] [address] Referral ID Status Reason Start Date Expiration Date Visits V isits Requested Authorized [id number] Authorized 12/21/2021 12/11/2022 28 28 Encounter Details Date Type Department Care Team Description 01/22/2022 Hospital Encounter Department of Radiation Fortunato Piña, Oncology in [facility] [place] [address] [facility] [address] [place] [phone] Social History Tobacco Use Types Packs/Day Years [...]
--- OUTSIDE RECORDS SUMMARY | 2022-04-08 14:02 | XMS_ITS | Encounter Summary ---
:1970 Author Organization [facility] [place] Address [address] [place] [address] Care Team Providers Name Role Phone Unavailable Primary Care Provider Unavailable Reason for Visit Radiation Therapy (Routine) - Authorized Specialty Diagnoses / Procedures Referred By Contact Refer red To Contact Diagnoses Malignant Neoplasm Of Rectum (HCC) Elliot Piña M.D. [facility] Radiation Oncology Procedures Prior Auth Rad Tx [place] IMRT COMPLEX [address] [facility] [phone] [facility] [place] [address] Referral ID Status Reason Start Date Expiration Date Visits V isits Requested Authorized [id number] Authorized 12/21/2021 12/11/2022 28 Encounter Details Date Type Department Care Team Description 01/21/2022 Hospital Encounter Department of Radiation Fortunato Piña, Oncology in [facility] [place] [address] [facility] [address] [place] [phone] Social History Tobacco Use Types Packs/Day Years [...]
--- OUTSIDE RECORDS SUMMARY | 2022-04-08 14:02 | XMS_ITS | Encounter Summary ---
:1970 Author Organization [facility] Address [address] [place] [address] Care Team Providers Name Role Phone Unavailable Primary Care Provider Unavailable Encounter Details Date Type Department Care Team Description 01/27/2022 Documentation Department of Radiation [place] [facility] [place] [address] [facility] [address] [place] [phone] (Wo rk) Social History Tobacco Use Types Packs/Day Years Used Date Smoking Tobacco: Every Day Cigarettes 0.5 S tarted: 1991 Smokeless Tobacco: Never Alcohol Use Standard Drinks/Week Comments Yes 14 (1 standard drink = 0.6 oz pure alcoh ol) Sex Assigned at Date Recorded Male 08/07/2019 10:59 AM CDT documented as of this encounter Miscellaneous Notes Radiation Completion Notes - Isabel Lima, RKianaNKiana - 01/27/2022 11:59 PM CDT DIAGNOSIS: 1. Malignant Neoplasm Of Rectum (HCC) Attending Physician: Elliot Piña M.D. ([phone]) Treatment Intent: Curative Concomitant Therapy: Chemotherapy Single Plan Treatment Course: 1xRectum Plan ID Fractions Dose / Fraction (cGy) Dose Treated (cGy) Dose Planned (cGy) First Treatment Last Treatment Elapsed Days [id number] 17 225 [id number] 5625 12/24/2021 01/15/2022 22 [id number] 200 1600 1600 01/18/2022 01/27/2022 9 Course Summary 12/24/2021 01/27/2022 34 Radiation Modality: Photons CLINICAL SUMMARY Mr. Rhys Real completed radiation treatment as planned without interruptions; however, a replan was done after 17 fractions due to the patient's difficulty with bladder filling. The cumulative dose total was dropped from 5625 cGy in 25 fractions to 5425 cGy in 25 fractions to avoid overdosing the adjacent organs at risk. The course of treatment was tolerated with anticipated side effects. The patient experienced toxicities of grade 1 proctitis,, grade 2 radiation dermatitis, and grade 1 pain during radiation treatment. TREATMENT RESPONSE: Response to treatment will be determined by post-treatment imaging and/or laboratory work. RECOMMENDED FOLLOW UP: Primary Medical Oncologist. Dr. Graham will see patient in follow up on January 28, 2022. Signed by: Isabel Lima R.N., 02/05/2022 9:30 AM CDT [facility] Radiation Therapy [facility] [address] [place], [place] [id number] documented in this encounter Plan of Treatment Not on filedocumented as of this encounter Visit Diagnoses Diagnosis Malignant Neoplasm Of Rectum (HCC) - Janell lira documented in this encounter
--- OUTSIDE RECORDS SUMMARY | 2022-04-08 14:02 | XMS_ITS | Clinical Summary ---
:1970 Author Organization [facility] Address [address] [place] [address] Care Team Providers Name Role Phone Unavailable Primary Care Provider Unavailable Source Comments Patient records contain information from all sites at [facility]. For routine questions regarding patient records, call [phone] during business hours, M-F 8:00 AM - 5:00 PM Central Time. Record requests for emergency care only can be directed to [phone] at any time.[facility] Allergies Active Allergy Reactions Severity Noted Date [...] for pain (as needed). ondansetron (ZOFRAN) 8 Take 1 tablet (8 30 tablet 1 12/15/2021 12/15/2022 Active mg tablet mg total) by mouth every 8 (eight) hours as needed for nausea or vomiting. capecitabine (XELODA) 0 12/15/2021 Active 500 mg tablet oxyCODONE-acetaminophe Take 1 tablet by 10 tablet 0 02/23/2022 Active n (PERCOCET) 5-325 mg mouth every 6 per tabletIndications: (six) hours as Prolonged Acute needed for pain Pain/Traumatic Injury Indication: Prolonged Acute Pain/Traumatic Injury. Active Problems Problem Noted Date Malignant Neoplasm Of Rectum 08/13/2020 Cancer Staging: Clinical stage from 07/22: Stage IVB (cT3, cN2b, pM1b) - Signed by Elliot Piña M.D. on 08/14/2020 Encounters Date Type Specialty Care Team Description 02/23/2022 Clinical Communication Radiation Oncology Junior Piña M.D. 01/27/2022 Hospital Encounter Radiation Oncology Elliot Piña Malignant Neoplasm [place] Of Rectum (HCC) 01/27/2022 Hospital Encounter Radiation Elliot Dove M.D. 01/27/2022 Documentation Radiation Oncology Elliot Piña M.D. 01/26/2022 Hospital Encounter Radiation Oncology Elliot Piña M.D. 01/25/2022 Hospital Encounter Radiation Elliot Dove M.D. 01/22/2022 Hospital Encounter Radiation Oncology Elliot Piña M.D. 01/22/2022 Hospital Encounter Radiation Oncology Elliot Piña M.D. 01/21/2022 Hospital Encounter Radiation Elliot Dove M.D. 01/20/2022 Hospital Encounter Radiation Oncology Elliot Piña Malignant Neoplasm Of Rectum (HCC)[place] Chappell 01/20/2022 Hospital Encounter Radiation Oncology Elliot Piña M.D. 01/19/2022 Hospital Encounter Radiation Elliot Dove M.D. 01/18/2022 Hospital Encounter Radiation Elliot Dove M.D. 01/15/2022 Hospital Encounter Radiation Elliot Dove M.D. 01/14/2022 Hospital Encounter Radiation Oncology Elliot Piña M.D. 01/14/2022 Clinical Communication Radiation Oncology Vidhi Akhtar P.A.-C., M.S. 01/13/2022 Hospital Encounter Radiation Oncology Kim Beckman Malignant Neoplasm [place] Vicente Of Rectum (HCC) 01/13/2022 Hospital Encounter Radiation Oncology Elliot Piña M.D. 01/13/2022 Orders Only Radiation Oncology Vidhi Akhtar Malignan t Neoplasm P.Dre., M.S. Of Rectum (HCC ) (Primary Dx) 01/12/2022 Hospital Encounter Radiation Oncology Kim Beckman Malignant Neoplasm [place] Vicente Of Rectum (HCC) 01/12/2022 Hospital Encounter Radiation Oncology Elliot Piña M.D. 01/11/2022 Hospital Encounter Radiation Oncology Elliot Piña Malignant Neoplasm [place] Paul Of Rectum (HCC) Isabel Lima (Primary Dx) A, R.NKiana 01/11/2022 Hospital Encounter Radiation Oncology Elliot Piña M.D. 01/08/2022 Hospital Encounter Radiation Oncology Elliot Piña M.D. 01/07/2022 Hospital Encounter Radiation Oncology Elliot Piña M.D. 01/07/2022 Orders Only Hematology Rosita Graham, Oncology [place] 01/06/2022 Hospital Encounter Radiation Oncology Elliot Piña M.D. from Last 3 Months Family History Medical [...] ??F) 01/27/2022 8:28 AM CDT Respiratory Rate 18 10/20/2013 1:03 AM CDT Oxygen Saturation - - Inhaled Oxygen Concentration - - Weight 61.9 kg (136 lb 7.4 oz) 01/27/2022 8:28 AM CDT Height 177.8 cm (5' 10) 08/14/2020 8:29 AM CDT Body Mass Index 19.58 08/14/2020 8:29 AM CDT Plan of Treatment Health Maintenance Due Date Last Done Comments CT Colonography 1970 Cologuard 1970 Colonoscopy 1970 Colorectal Cancer Surveillance 1970 Fasting Glucose for Diabetes 1970 Screening HIV Screening 1970 Hepatitis B Vaccines (1 of 3 - 3-dose 1970 series) Hepatitis C Screening 1970 Lipid (Cholesterol) Screening 1970 Tobacco Cessation counseling 1970 Pneumococcal vaccine (0-64 years) (1 1976 - PCV) Zoster Vaccines (1 of 2) 1989 Depression Screening (Annual PHQ-2) 05/30/2021 COVID-19 Vaccine (4 - Booster for 06/24/2021 04/29/2021, , Pfizer series) 10/22/2020 Influenza Vaccine (#1) 2022 DTaP,Tdap,and Td Vaccines (2 - Td or 12/24/2026 12/24/2016 Tdap) Procedures Procedure Name Priority Date/Time Associated Comments Diagnosis ARIA COURSE COMPLETE Routine 01/27/2022 8:16 AM R esults for this TREATMENT INFORMATION CDT proced ure are in the results section. ARIA DAILY TREATMENT Routine 01/27/2022 8:16 AM R esults for this INFORMATION CDT procedure are i n the results section. ARIA DAILY TREATMENT Routine 01/26/2022 8:18 AM R esults for this INFORMATION CDT procedure are i n the results section. ARIA DAILY TREATMENT Routine 01/25/2022 8:14 AM R esults for this INFORMATION CDT procedure are i n the results section. ARIA DAILY TREATMENT Routine 01/22/2022 8:31 AM R esults for this INFORMATION CDT procedure are i n the results section. ARIA DAILY TREATMENT Routine 01/21/2022 8:13 AM R esults for this INFORMATION CDT procedure are i n the results section. ARIA DAILY TREATMENT Routine 01/20/2022 8:09 AM R esults for this INFORMATION CDT procedure are i n the results section. ARIA DAILY TREATMENT Routine 01/19/2022 8:42 AM R esults for this INFORMATION CDT procedure are i n the results section. ARIA DAILY TREATMENT Routine 01/18/2022 8:39 AM R esults for this INFORMATION CDT procedure are i n the results section. ARIA COURSE COMPLETE Routine 01/15/2022 7:14 PM R esults for this TREATMENT INFORMATION CDT proced ure are in the results section. ARIA DAILY TREATMENT Routine 01/15/2022 8:29 AM R esults for this INFORMATION CDT procedure are i n the results section. ARIA DAILY TREATMENT Routine 01/14/2022 9:10 AM R esults for this INFORMATION CDT procedure are i n the results section. VERIFICATION/RE-SIM Routine 01/13/2022 9:04 AM Malignant Neopl asm Results for this CDT Of Rectum (HCC) procedure ar e in the results section. ARIA DAILY TREATMENT Routine 01/13/2022 8:57 AM R esults for this INFORMATION CDT procedure are i n the results section. ARIA DAILY TREATMENT Routine 01/12/2022 8:32 AM R esults for this INFORMATION CDT procedure are i n the results section. ARIA DAILY TREATMENT Routine 01/11/2022 8:14 AM R esults for this INFORMATION CDT procedure are i n the results section. ARIA DAILY TREATMENT Routine 01/08/2022 8:11 AM R esults for this INFORMATION CDT procedure are i n the results section. ARIA DAILY TREATMENT Routine 01/07/2022 9:01 AM R esults for this INFORMATION CDT procedure are i n the results section. ARIA DAILY TREATMENT Routine 01/06/2022 8:49 AM R esults for this INFORMATION CDT procedure are i n the results section. from Last 3 Months Results Aria Course Complete Treatment Information (01/27/2022 8:16 AM CDT)Only the most recent of2 resultswithin the time period is included. [facility] gist Method Time Signature Course ID 1xRectum [place] ARIA Course Start Date [place]ER[place]OD ARIA 2 13:32 CDT Course End Date [place] ARIA 2 14:16 CDT First Treatment [place] ARIA Date 2 12:43 CDT Last Treatment [place] ARIA Date 2 08:16 CDT Treatment Elapsed 34 [place] ARIA Days Reference Point [id number] [place] ARIA Dosage Given to 5000 [place] ARIA Date cGy Reference Point [id number] [place] ARIA Dosage Given to 3825 [place] ARIA Date cGy Plan ID [id number] [place] ARIA Fractions Treated 8 [place] ARIA to Date Planned Total 8 [place] ARIA Fractions Prescribed Dose 200 [place] ARIA Per Fraction Prescription Dose 1600 [place] ARIA in cGy Plan Primary [id number] [place]A Reference Point Plan ID [id number] [place] [facility]A Fractions Treated 17 [place] ARIA to Date Planned Total 25 [place] ARIA Fractions Prescribed Dose 225 [place] ARIA Per Fraction Prescription Dose 5625 [place] ARIA in cGy Plan Primary [id number] [place] ARIA Reference Point Specimen (Source) Anatomical Collection Method Collection Time Re ceived Time Location / / Volume Laterality 01/27/2022 8:16 AM CDT Provider Not In System RADIATION ONCOLOGY ORDERABLE S Performing Organization Address City/State/ZIP Code Phon e Number [place]ER[place] NARCISOA [place] na Aria Daily Treatment Information (01/27/2022 8:16 AM CDT)Only the most recent of 16 resultswithin the time period is included. [facility] gist Method Time Signature Course ID 1xRectum [place] ARIA Course Start Date [place] ARIA 2 13:32 CDT First Treatment [place] ARIA Date 2 12:43 CDT Last Treatment [place] [facility]A Date 2 08:16 CDT Treatment Elapsed 34 [place] ARIA Days Reference Point [id number] [place] Dosage Given to 5000 [place] Date cGy Session Dosage 200 [place] ARIA Given Plan ID [id number] [place] Fractions Treated 8 [place] to Date Planned Total 8 [place] Fractions Prescribed Dose 200 [place]A Per Fraction Prescription Dose 1600 [place]A in cGy Plan Primary [id number] [place] Reference Point Specimen (Source) Anatomical Collection Method Collection Time Re ceived Time Location / / Volume Laterality 01/27/2022 8:16 AM CDT Provider Not In System RADIATION ONCOLOGY ORDERABLE S Performing Organization Address City/State/ZIP Code Phon e Number [place]ER[place] JERRY [place] na Verification/Re-Sim (01/13/2022 9:04 AM CDT) Specimen (Source) Anatomical Location Collection Method / Collectio n Time Received Time / Laterality Volume Narrative [place] ARIA - 01/13/2022 9:04 AM CDT Martha Carlos RTT ? 01/13/2022 ??9:05 AM Verification/Re-Sim Date/Time: 01/13/2022 9:04 AM Performed by: Kim Beckman M.D. Authorized by: Kim Beckman M.D. Kim Beckman M.D. RADIATION ONCOLOGY ORDERABLE S Performing Organization Address City/State/ZIP Code Phon e Number KAELA EDWARDS na from Last 3 Months Insurance Payer Benefit Plan / Subscriber ID Effective Dates Phone Addre ss Type Group [facility] [id number] 2021-Present [phone] [address] [place] [address]
--- OUTSIDE RECORDS SUMMARY | 2022-04-08 14:03 | XMS_ITS | Encounter Summary ---
:1970 Author Organization [facility] Address [address] [place] [address] Care Team Providers Name Role Phone Unavailable Primary Care Provider Unavailable Reason for Referral Radiation Therapy (Routine) - Authorized Specialty Diagnoses / Procedures Referred By Contact Refer red To Contact Diagnoses Malignant Neoplasm Of Rectum (HCC) Elliot Piña M.D. [facility] Procedures Management Visit [address] [place] [phone] Referral ID Status Reason Start Date Expiration Date Visits V isits Requested Authorized [id number] Authorized 12/11/2021 12/11/2022 10 10 Reason for Visit Radiation Therapy (Routine) - Authorized Specialty Diagnoses / Procedures Referred By Contact Refer red To Contact Diagnoses Malignant Neoplasm Of Rectum (HCC) Elliot [facility].D. [facility] Procedures Management Visit [address] [place] [phone] Referral ID Status Reason Start Date Expiration Date Visits V isits Requested Authorized [id number] Authorized 12/11/2021 12/11/2022 10 10 Encounter Details Date Type Department Care Team Description 01/05/2022 Hospital Encounter Department of Kim Beckman Neoplasm Radiation Oncology [place] Vicente Of Rectum (HCC) in [place], [address] [place] [address] [address] [facility] [address] [place], [place] [phone] (Work) [phone] Social History Tobacco Use Types Packs/Day Years [...] Sign Reading Time Taken Comments Blood Pressure 115/66 01/05/2022 9:11 AM CDT Pulse 56 01/05/2022 9:11 AM CDT Temperature 36.3 ??C (97.3 ??F) 01/05/2022 9:11 AM CDT Respiratory Rate - - Oxygen Saturation - - Inhaled Oxygen Concentration - - Weight 64.7 kg (142 lb 10.2 oz) 01/05/2022 9:11 AM CDT Height - - Body Mass Index 20.47 08/14/2020 8:29 AM CDT documented in this [...] hours as needed for nausea or vomiting. documented as of this encounter Progress Notes Kim Beckman M.D. - 01/05/2022 9:00 AM CDT ATTESTATION FOR MANAGEMENT VISIT I saw and evaluated the patient and participated in the morin portions of the service as noted below. I reviewed the documentation of Ms. Isabel Lima RN and agree with the findings and plan. The patient appears well on exam. We will continue with radiation as planned and monitor weekly. He states thathe is starting to feel things are improving with the radiation in that he is not having to change the pad he is using as often anymore. He will continue to watch out for diarrhea and let us know if he is struggling. He knows to stay hydrated. Kim Beckman M.D., 01/05/2022 SUBJECTIVE REASON FOR VISIT Evaluation for side effects while receiving radiation treatment for 1. Malignant Neoplasm Of Rectum (HCC) SUPERVISED BY: Dr. Beckman HISTORY OF PRESENT ILLNESS Mr. Rhys Real [...] Weekly labs are being checked on at [facility]. Treatment Course: 1xRectum Plan ID Fractions Dose / Fraction (cGy) Dose Treated (cGy) Dose Planned (cGy) First Treatment Last Treatment Elapsed Days [id number] 12/24/2021 01/05/2022 Course Summary 12/24/2021 01/05/2022 12 The patient was seen and examined today with Dr. Beckman. The patient reports that he is doing well. He denies nausea, vomiting, fevers, sore to hands/feet/mouth, dysuria, hematuria or rectal bleeding. Diarrhea over the weekend that was managed with Imodium. He on average takes Imodium once every 3 days. He did experience explosive diarrhea once today but overall this has improved. He is applying Vanicream twice a day to the treatment field area. He is alsoapplying an over the counter cooling spray to the treatment area. He is utilizing baby wipes. He is taking Xeloda has prescribed. Blood is spotty in the stools has overall improved some. He continues to experience intermittent shooting pelvic pains. He manages his pain with Ibuprofen as needed. LABS December 31, 2021: WBC 7.23; Hgb 15.1; ANC 77.4; Plt 221, 000 PATIENT REPORTED SYMPTOM SCREEN FATIGUE (Scale: 0 = no fatigue; 10 = worst fatigue you can imagine): 2-3 PAIN (Scale: 0 = no pain; 10 = worst pain you can imagine): 3 OVERALL QUALITY OF LIFE (Scale: 0 = as bad as can be; 10 = as good as can be): 7 OBJECTIVE BP 115/66 (BP Location: Left arm, Patient Position: Sitting, Cuff Size: Small) Pulse (!) 56 Temp36.3 ??C (Temporal) Wt 64.7 kg BMI 20.47 kg/m?? PHYSICAL EXAM General: Alert and oriented in no apparent distress. Skin: mild darkening and slight erythema to the rectal region. Skin check over treatment field area was completed today. ASSESSMENT / PLAN #1 Stage IVB (cT3, [...] Concurrent chemoradiotherapy initiated on December 24, 2021; anticipated completion on January 27, 2022 The patient is tolerating radiation treatment well overall. He is to apply Aquaphor to rectal area 3times a day. We asked our desk for a copy of weekly labs to review. He will contact us with any questions or concerns. We will continue with radiation treatment as planned. Signed by: Isabel Lima R.N. 01/05/2022 10:14 AM CDT documented in this encounter Plan of Treatment Scheduled Orders Name Type Priority Associated Diagnoses Order S chedule Management Visit Radiation Oncology Routine Malignant Neoplasm Once for 1 Of Rectum (HCC) Occurrences starting 01/05/2022 unti l 01/05/2022 documented as of this encounter Visit Diagnoses Diagnosis Malignant Neoplasm Of Rectum (HCC) documented in this encounter
--- OUTSIDE RECORDS SUMMARY | 2022-04-08 14:03 | XMS_ITS | Encounter Summary ---
:1970 Author Organization [facility] Address [address] [place] [address] Care Team Providers Name Role Phone Unavailable Primary Care Provider Unavailable Reason for Visit Radiation Therapy (Routine) - Authorized Specialty Diagnoses / Procedures Referred By Contact Refer red To Contact Diagnoses Malignant Neoplasm Of Rectum (HCC) Elliot Piña M.D. [facility] Radiation Oncology Procedures Prior Auth Rad Tx [place] IMRT COMPLEX [address] [facility] [phone] [facility] [place] [address] Referral ID Status Reason Start Date Expiration Date Visits V isits Requested Authorized [id number] Authorized 12/21/2021 12/11/2022 28 28 Encounter Details Date Type Department Care Team Description 01/04/2022 Hospital Encounter Department of Radiation Fortunato Piña, Oncology in [facility] [place] [address] [facility] [address] [place] [phone] Social History Tobacco Use Types Packs/Day Years [...] or vomiting. documented as of this encounter Plan of Treatment Not on filedocumented as of this encounter Visit Diagnoses Not on filedocumented in this encounter
--- OUTSIDE RECORDS SUMMARY | 2022-04-08 14:03 | XMS_ITS | Encounter Summary ---
:1970 Author Organization [facility] Address [address] [place] [address] Care Team Providers Name Role Phone Unavailable Primary Care Provider Unavailable Reason for Visit Radiation Therapy (Routine) - Authorized Specialty Diagnoses / Procedures Referred By Contact Refer red To Contact Diagnoses Malignant Neoplasm Of Rectum (HCC) Elliot Piña M.D. [facility] Radiation Oncology Procedures Prior Auth Rad Tx [place] IMRT COMPLEX [address] [facility] [place] [phone] [phone] [facility] [place] [address] Referral ID Status Reason Start Date Expiration Date Visits V isits Requested Authorized [id number] Authorized 12/21/2021 12/11/2022 28 28 Encounter Details Date Type Department Care Team Description 12/28/2021 Hospital Encounter Department of Radiation Fortunato Piña, Oncology in [facility] [place] [address] [facility] [address] [place] [phone] Social History Tobacco Use Types Packs/Day Years [...]
--- OUTSIDE RECORDS SUMMARY | 2022-04-08 14:03 | XMS_ITS | Encounter Summary ---
:1970 Author Organization [facility] Address [address] [place] [address] Care Team Providers Name Role Phone Unavailable Primary Care Provider Unavailable Reason for Referral Radiation Therapy (Routine) - Authorized Specialty Diagnoses / Procedures Referred By Contact Refer red To Contact Diagnoses Malignant Neoplasm Of Rectum (HCC) Elliot Piña M.D. [facility] Procedures Management Visit [address] [place] [phone] Referral ID Status Reason Start Date Expiration Date Visits V isits Requested Authorized [id number] Authorized 12/11/2021 12/11/2022 10 10 Reason for Visit Radiation Therapy (Routine) - Authorized Specialty Diagnoses / Procedures Referred By Contact Refer red To Contact Diagnoses Malignant Neoplasm Of Rectum (HCC) Elliot Piña M.D. [facility] Procedures Management Visit [address] [place] [phone] Referral ID Status Reason Start Date Expiration Date Visits V isits Requested Authorized [id number] Authorized 12/11/2021 12/11/2022 10 10 Encounter Details Date Type Department Care Team Description 12/29/2021 - Hospital Encounter Department of Cristhian Piña Neoplasm Of Rectum (HCC); 01/03/2022 Radiation Oncology Elliot Camacho M.D. Nicotine Dependence in [place], [address] [place], [place] [address] [facility] [address] [place], [place] [phone] (Work) [phone] Social History Tobacco Use Types Packs/Day Years [...] Sign Reading Time Taken Comments Blood Pressure 125/74 12/29/2021 8:55 AM CDT Pulse 69 12/29/2021 8:55 AM CDT Temperature 36.4 ??C (97.5 ??F) 12/29/2021 8:55 AM CDT Respiratory Rate - - Oxygen Saturation - - Inhaled Oxygen Concentration - - Weight 65.3 kg (143 lb 15.4 oz) 12/29/2021 8:55 AM CDT Height - - Body Mass Index 20.66 08/14/2020 8:29 AM CDT documented in this [...] encounter Progress Notes Elliot Piña M.D. - 12/29/2021 9:00 AM CDT SUBJECTIVE REASON FOR VISIT Evaluation for side effects while receiving radiation treatment for 1. Malignant Neoplasm Of Rectum (HCC) 2. Nicotine Dependence SUPERVISED BY: Elliot Piña M.D. ([phone]) HISTORY OF PRESENT ILLNESS Mr. Rhys Real is a 51 y.o. male with stage IV rectal adenocarcinoma. He received neoadjuvant chemotherapy. He is now receiving concurrent chemoradiotherapy with intensity modulated radiotherapy to the rectal tumor, involved lymph nodes in the inguinal region, pelvis and periaortic chain with an integrated boost to regional lymph nodes. Xeloda is being managed by Dr. Graham. Treatment Course: 1xRectum Plan ID Fractions Dose / Fraction (cGy) Dose Treated (cGy) Dose Planned (cGy) First Treatment Last Treatment Elapsed Days [id number] 12/24/2021 12/28/2021 4 Course Summary 12/24/2021 12/28/2021 4 The patient was seen and examined today with Dr. Piña. The patient reports improvement with fecal incontinence with the first few treatments. He did feel slight dehydrated and then some nausea over the weekend when he went fishing. Nausea resolved when he rehydrated himself. He reports minimal pain with bowel movements. He also notes intermittent shootingpains to the groin area. He notes mucous in the stool in the morning. Blood is spotty in the stools.He changes pad 3-4 times a day for fecal incontinence. He manages his pain with Ibuprofen. PATIENT REPORTED SYMPTOM SCREEN FATIGUE (Scale: 0 = no fatigue; 10 = worst fatigue you can imagine): 2-3 PAIN (Scale: 0 = no pain; 10 = worst pain you can imagine): 4 OVERALL QUALITY OF LIFE (Scale: 0 = as bad as can be; 10 = as good as can be): 7 OBJECTIVE BP 125/74 (BP Location: Right arm, Patient Position: Sitting, Cuff Size: Small) Pulse 69 Temp 36.4 ??C (Temporal) Wt 65.3 kg BMI 20.66 kg/m?? PHYSICAL EXAM General: Alert and oriented in no apparent distress. ASSESSMENT / PLAN #1 Stage IVB (cT3, [...] patient is tolerating radiation treatment well overall. I reviewed Moist Skin Reaction [id number] with patent today. I discussed supplies with patient and provided him samples today. He will start applying moisturizing lotion to treatment field area at least 3 times a day starting today. If areas of dryness develop, he will apply Aquaphor to those areas. He will contact us with any questions or concerns. We will continue with radiation treatment as planned. Signed by: Isabel Lima R.N. 12/29/2021 9:17 AM CDT I saw and evaluated the patient and participated in the morin portions of the service. I reviewed the documentation of Isabel Lima R.N. and agree with the findings and plan. The patient appears well onexam. He is tolerating treatment well. He will continue with treatment as planned. Signed by: Elliot Piña M.D. 01/03/2022 4:46 AM CDT [facility] [address] [place] [address] documented in this encounter Plan of Treatment Scheduled Orders Name Type Priority Associated Diagnoses Order S chedule Management Visit Radiation Oncology Routine Malignant Neoplasm Once for 1 Of Rectum (HCC) Occurrences starting 12/29/2021 elpidio camacho 12/29/2021 documented as of this encounter Visit Diagnoses Diagnosis Malignant Neoplasm Of Rectum (HCC) Nicotine Dependence documented in this encounter
--- OUTSIDE RECORDS SUMMARY | 2022-04-08 14:03 | XMS_ITS | Encounter Summary ---
:1970 Author Organization [facility] Address [address] [place] [address] Care Team Providers Name Role Phone Unavailable Primary Care Provider Unavailable Reason for Referral Radiation Therapy (Routine) - Closed Specialty Diagnoses / Procedures Referred By Contact Refer red To Contact Diagnoses Malignant Neoplasm Of Rectum (HCC) Kmi Beckman M.D. [facility] Procedures Verification/Re-Sim [address] [place] [phone] Referral ID Status Reason Start Date Expiration Date Visits Requ ested Visits Authorized [id number] Closed 01/13/2022 01/13/2023 1 1 Encounter Details Date Type Department Care Team Description 01/13/2022 Orders Only Department of Radiation Vidhi Akhtar Mal ignant Neoplasm Of Oncology in [place], P.AKiana-Kylie., M.S. Rectum (HCC) (Primary [address] Dx) [address] [place] [address] [phone] Social History Tobacco Use Types Packs/Day Years Used Date Smoking Tobacco: Every Day Cigarettes 0.5 S tarted: 1991 Smokeless Tobacco: Never Alcohol Use Standard Drinks/Week Comments Yes 14 (1 standard drink = 0.6 oz pure alcoh ol) Sex Assigned at Date Recorded Male 08/07/2019 10:59 AM CDT documented as of this encounter Plan of Treatment Not on filedocumented as of this encounter Results Verification/Re-Sim (01/13/2022 9:04 AM CDT) Specimen (Source) Anatomical Location Collection Method / Collectio n Time Received Time / Laterality Volume Narrative KAELA EDWARDS - 01/13/2022 9:04 AM CDT Martha Carlos, RTT ? 01/13/2022 ??9:05 AM Verification/Re-Sim Date/Time: 01/13/2022 9:04 AM Performed by: Kim Beckman M.D. Authorized by: Kim Beckman M.D. Kim Beckman M.D. RADIATION ONCOLOGY ORDERABLE S Performing Organization Address City/State/ZIP Code Phon e Number [place] J[place] na documented in this encounter Visit Diagnoses Diagnosis Malignant Neoplasm Of Rectum (HCC) - Janell lira Malignant Neoplasm Of Rectum (HCC) documented in this encounter
--- OUTSIDE RECORDS SUMMARY | 2022-04-08 14:03 | XMS_ITS | Encounter Summary ---
:1970 Author Organization [facility] Address [address] [place] [address] Care Team Providers Name Role Phone Unavailable Primary Care Provider Unavailable Reason for Visit Radiation Therapy (Routine) - Authorized Specialty Diagnoses / Procedures Referred By Contact Refer red To Contact Diagnoses Malignant Neoplasm Of Rectum (HCC) Elliot Piña M.D. [facility] Radiation Oncology Procedures Prior Auth Rad Tx [place] IMRT COMPLEX [address] [place] [address] [address] [facility] [place] [address] Referral ID Status Reason Start Date Expiration Date Visits V isits Requested Authorized [id number] Authorized 12/21/2021 12/11/2022 28 28 Encounter Details Date Type Department Care Team Description 12/31/2021 Hospital Encounter Department of Radiation Fortunato Piña, Oncology in [facility] [place] [address] [facility] [address] [place] [phone] [phone] Social History Tobacco Use Types Packs/Day Years [...]
--- OUTSIDE RECORDS SUMMARY | 2022-04-08 14:03 | XMS_ITS | Encounter Summary ---
:1970 Author Organization [facility] Address [address] [place] [address] Care Team Providers Name Role Phone Unavailable Primary Care Provider Unavailable Reason for Referral Radiation Therapy (Routine) - Closed Specialty Diagnoses / Procedures Referred By Contact Refer red To Contact Diagnoses Malignant Neoplasm Of Rectum (HCC) Kim Beckman M.D. [facility] Procedures Verification/Re-Sim [address] [place] [phone] Referral ID Status Reason Start Date Expiration Date Visits Requ ested Visits Authorized [id number] Closed 01/13/2022 01/13/2023 1 1 Reason for Visit Radiation Therapy (Routine) - Closed Specialty Diagnoses / Procedures Referred By Contact Refer red To Contact Diagnoses Malignant Neoplasm Of Rectum (HCC) Kim Beckman M.D. [facility] Procedures Verification/Re-Sim [address] [place] [phone] Referral ID Status Reason Start Date Expiration Date Visits Requ ested Visits Authorized [id number] Closed 01/13/2022 01/13/2023 1 1 Encounter Details Date Type Department Care Team Description 01/13/2022 Hospital Encounter Department of Kim Beckman Neoplasm Radiation Oncology [place] Of Rectum (HCC) in [place], [address] [place] [address] [address]21 [facility] [address] [place], [place] [phone] [address] (Work) [phone] Social History Tobacco Use Types Packs/Day Years [...] Take 1 tablet by 20 tablet 0 202101/14/2022 (PERCOCET) 5-325 mg per mouth every 6 (six) tabletIndications: hours as needed for Prolonged Acute pain Indication: Pain/Traumatic Injury Prolonged Acute Pain/Traumatic Injury. documented as of this encounter Procedure Notes Martha Carlos, RTT - 01/13/2022 9:15 AM CDTAssociated Order(s): Verification/Re-Sim Pre-Procedure Diagnose(s): Malignant Neoplasm Of Rectum (HCC) Post-Procedure Diagnose(s): Malignant Neoplasm Of Rectum (HCC) Verification/Re-Sim Date/Time: 01/13/2022 9:04 AM Performed by: Kim Beckman M.D. Authorized by: Kim Beckman M.D. Simulation was performed under physician supervision based on physician order. Physician was immediately available to provide assistance and direction throughout the procedure. The patient was appropriately identified and placed in the treatment position using the necessary immobilization. Area scanned:Pelvis Contrast used for the simulation procedure: None Motion management: None Reason for Re-Sim:Patient setup Immobilization:No changes made CT guidance: Following positioning of the patient, a series of slices was obtained to be utilized intreatment planning. CT images were transferred to the Sophia Search treatment planning system. Verification treatment planning will take place prior to treatment delivery as directed by physician. Patient set up and imaging was appropriate and completed without incident. Strategic Buyer use:No documented in this encounter Plan of Treatment Not on filedocumented as of this encounter Procedures Procedure Name Priority Date/Time Associated Diagnosis Comme nts VERIFICATION/RE-SIM Routine 01/13/2022 9:04 AM Malignant Neopl asm Results for this CDT Of Rectum (HCC) procedure ar e in the results section. documented in this encounter Results Verification/Re-Sim (01/13/2022 9:04 AM CDT) Specimen (Source) Anatomical Location Collection Method / Collectio n Time Received Time / Laterality Volume Narrative [facility] - 01/13/2022 9:04 AM CDT Martha Carlos, RTT ? 01/13/2022 ??9:05 AM Verification/Re-Sim Date/Time: 01/13/2022 9:04 AM Performed by: Kim Beckman M.D. Authorized by: Kim Beckman M.D. Kim Beckman M.D. RADIATION ONCOLOGY ORDERABLE S Performing Organization Address City/State/ZIP Code Phon e Number [facility] na documented in this encounter Visit Diagnoses Diagnosis Malignant Neoplasm Of Rectum (HCC) documented in this encounter
--- OUTSIDE RECORDS SUMMARY | 2022-04-08 14:03 | XMS_ITS | Encounter Summary ---
:1970 Author Organization [facility] Address [address] [place] [address] Care Team Providers Name Role Phone Unavailable Primary Care Provider Unavailable Reason for Visit Radiation Therapy (Routine) - Authorized Specialty Diagnoses / Procedures Referred By Contact Refer red To Contact Diagnoses Malignant Neoplasm Of Rectum (HCC) Elliot Piña M.D. [facility] Radiation Oncology Procedures Prior Auth Rad Tx [place] IMRT COMPLEX [address] [facility] [place] [address] [address] [facility] [address] Referral ID Status Reason Start Date Expiration Date Visits V isits Requested Authorized [id number] Authorized 12/21/2021 12/11/2022 28 28 Encounter Details Date Type Department Care Team Description 01/18/2022 Hospital Encounter Department of Radiation Fortunato Piña, Oncology in [facility] [place] [address] [facility] [address] [place] [phone] [phone] Social History Tobacco Use Types Packs/Day Years [...]
--- OUTSIDE RECORDS SUMMARY | 2022-04-08 14:03 | XMS_ITS | Encounter Summary ---
:1970 Author Organization [facility] Address [address] [place] [address] Care Team Providers Name Role Phone Unavailable Primary Care Provider Unavailable Reason for Visit Radiation Therapy (Routine) - Authorized Specialty Diagnoses / Procedures Referred By Contact Refer red To Contact Diagnoses Malignant Neoplasm Of Rectum (HCC) Elliot Piña M.D. [facility] Radiation Oncology Procedures Prior Auth Rad Tx [place] IMRT COMPLEX [address] [facility] [place] [address] [address] [facility] [place] [address] Referral ID Status Reason Start Date Expiration Date Visits V isits Requested Authorized [id number] Authorized 12/21/2021 12/11/2022 28 28 Encounter Details Date Type Department Care Team Description 01/08/2022 Hospital Encounter Department of Radiation Fortunato Piña, Oncology in [facility] [place] [address] [facility] [address] [place] [phone] [phone] Social History Tobacco Use Types Packs/Day Years [...]
--- OUTSIDE RECORDS SUMMARY | 2022-04-08 14:03 | XMS_ITS | Encounter Summary ---
:1970 Author Organization [facility] Address [address] [place] [address] Care Team Providers Name Role Phone Unavailable Primary Care Provider Unavailable Reason for Visit Radiation Therapy (Routine) - Authorized Specialty Diagnoses / Procedures Referred By Contact Refer red To Contact Diagnoses Malignant Neoplasm Of Rectum (HCC) Elliot Piña M.D. [facility] Radiation Oncology Procedures Prior Auth Rad Tx [place] IMRT COMPLEX [address] [facility] [place] [address] [address] [facility] [place] [address] Referral ID Status Reason Start Date Expiration Date Visits V isits Requested Authorized [id number] Authorized 12/21/2021 12/11/2022 28 28 Encounter Details Date Type Department Care Team Description 01/05/2022 Hospital Encounter Department of Radiation Fortunato Piña, Oncology in [facility] [place] [address] [facility] [address] [place] [phone] [phone] Social History Tobacco Use Types Packs/Day Years [...]
--- OUTSIDE RECORDS SUMMARY | 2022-04-08 14:03 | XMS_ITS | Encounter Summary ---
:1970 Author Organization [facility] Address [address] [place] [address] Care Team Providers Name Role Phone Unavailable Primary Care Provider Unavailable Reason for Visit Radiation Therapy (Routine) - Authorized Specialty Diagnoses / Procedures Referred By Contact Refer red To Contact Diagnoses Malignant Neoplasm Of Rectum (HCC) Elliot Piña M.D. [facility] Radiation Oncology Procedures Prior Auth Rad Tx [place] IMRT COMPLEX [address] [facility] [place] [address] [address] [facility] [place] [address] Referral ID Status Reason Start Date Expiration Date Visits V isits Requested Authorized [id number] Authorized 12/21/2021 12/11/2022 28 28 Encounter Details Date Type Department Care Team Description 01/12/2022 Hospital Encounter Department of Radiation Fortunato Piña, Oncology in [facility] [place] [address] [facility] [address] [place] [phone] [phone] Social History Tobacco Use Types Packs/Day Years [...]
--- OUTSIDE RECORDS SUMMARY | 2022-04-08 14:03 | XMS_ITS | Encounter Summary ---
:1970 Author Organization [facility] Address [address] [place] [address] Care Team Providers Name Role Phone Unavailable Primary Care Provider Unavailable Reason for Visit Radiation Therapy (Routine) - Authorized Specialty Diagnoses / Procedures Referred By Contact Refer red To Contact Diagnoses Malignant Neoplasm Of Rectum (HCC) Elliot Piña M.D. [facility] Radiation Oncology Procedures Prior Auth Rad Tx [place] IMRT COMPLEX [address] [facility] [place] [address] [address] [place] [address] Referral ID Status Reason Start Date Expiration Date Visits V isits Requested Authorized [id number] Authorized 12/21/2021 12/11/2022 28 28 Encounter Details Date Type Department Care Team Description 01/11/2022 Hospital Encounter Department of Radiation Fortunato Piña, Oncology in [facility] [place] [address] [facility] [address] [place] [phone] [phone] Social History Tobacco Use Types Packs/Day Years [...]
--- OUTSIDE RECORDS SUMMARY | 2022-04-08 14:03 | XMS_ITS | Encounter Summary ---
:1970 Author Organization [facility] Address [address] [place] [address] Care Team Providers Name Role Phone Unavailable Primary Care Provider Unavailable Reason for Visit Radiation Therapy (Routine) - Authorized Specialty Diagnoses / Procedures Referred By Contact Refer red To Contact Diagnoses Malignant Neoplasm Of Rectum (HCC) Elliot Piña M.D. [facility] Radiation Oncology Procedures Prior Auth Rad Tx [place] IMRT COMPLEX [address] [facility] [place] [address] [address] [facility] [place] [address] Referral ID Status Reason Start Date Expiration Date Visits V isits Requested Authorized [id number] Authorized 12/21/2021 12/11/2022 28 28 Encounter Details Date Type Department Care Team Description 01/15/2022 Hospital Encounter Department of Radiation Fortunato Piña, Oncology in [facility] [place] [address] [facility] [address] [place] [phone] [phone] Social History Tobacco Use Types Packs/Day Years [...]
--- OUTSIDE RECORDS SUMMARY | 2022-04-08 14:03 | XMS_ITS | Encounter Summary ---
:1970 Author Organization [facility] Address [address] [place] [address] Care Team Providers Name Role Phone Unavailable Primary Care Provider Unavailable Reason for Referral Radiation Therapy (Routine) - Closed Specialty Diagnoses / Procedures Referred By Contact Refer red To Contact Diagnoses Malignant Neoplasm Of Rectum (HCC) Elliot Piña M.D. [facility] [place] [facility] Procedures Initial Rad Onc Treatment Planning CT Simulation [address] [place] [phone] Referral ID Status Reason Start Date Expiration Date Visits Requ ested Visits Authorized [id number] Closed 12/11/2021 12/11/2022 1 1 Reason for Visit Radiation Therapy (Routine) - Closed Specialty Diagnoses / Procedures Referred By Contact Refer red To Contact Diagnoses Malignant Neoplasm Of Rectum (HCC) Elliot Piña M.D. [facility] Procedures Initial Rad Onc Treatment Planning CT Simulation [address] [place] [phone] Referral ID Status Reason Start Date Expiration Date Visits Requ ested Visits Authorized [id number] Closed 12/11/2021 12/11/2022 1 1 Encounter Details Date Type Department Care Team Description 12/15/2021 Hospital Encounter Department of Elliot Piña Neoplasm Radiation Oncology [place] Of Rectum (HCC) in [place], [facility] [address] [place], [place] [address] [facility] [address] [place], [place] [phone] (Work) [phone] Social History Tobacco Use Types Packs/Day Years [...] or vomiting. documented as of this encounter Procedure Notes Giovana Whalen, RTT - 12/15/2021 11:30 AM CDTAssociated Order(s): Initial Rad Onc Treatment Planning CT Simulation Pre-Procedure Diagnose(s): Malignant Neoplasm Of Rectum (HCC) Post-Procedure Diagnose(s): Malignant Neoplasm Of Rectum (HCC) Initial Rad Onc Treatment Planning CT Simulation Date/Time: 12/15/2021 11:40 AM Performed by: Elliot Piña M.D. Authorized by: Elliot Piña M.D. Simulation was performed under physician supervision based on physician order in preparation for radiation therapy. Physician was immediately available to provide assistance and direction throughout the procedure. Written consent for treatment was completed or confirmed. The patient was appropriately identified and placed in the treatment position using the necessary immobilization to ensure a reproducible treatment position. Reference dyson were placed to facilitate marking of isocenter. Area scanned: Abdomen and Pelvis Contrast used for the simulation procedure: IV and Rectal Patient position: Head first supine Custom immobilization: Vac-chata Motion management: None Bolus: No CT guidance: Following positioning of the patient, a series of slices was obtained to be utilized intreatment planning. CT images were transferred to the Eclipse treatment planning system, after a reference isocenter was determined and marked. Segmentation and treatment planning will take place priorto treatment delivery. Patient set up and imaging was appropriate and completed without incident. Rental Clerk use:No documented in this encounter Plan of Treatment Not on filedocumented as of this encounter Procedures Procedure Name Priority Date/Time Associated Comments Diagnosis INITIAL RAD ONC Routine 12/15/2021 11:40 AM Malignant Neoplasm Results for this TREATMENT PLANNING CDT Of Rectum (HCC) proced ure are in CT SIMULATION the results section. documented in this encounter Results Initial Rad Onc Treatment Planning CT Simulation (12/15/2021 11:40 AM CDT) Specimen (Source) Anatomical Location Collection Method / Collectio n Time Received Time / Laterality Volume Narrative [facility] - 12/15/2021 11:40 AM CDT Giovana Whalen, RTT ? 12/15/2021 11:41 AM Initial Rad Onc Treatment Planning CT Si mulation Date/Time: 12/15/2021 11:40 AM Performed by: Elliot Piña M.D. Authorized by: Elliot Piña M.D. Elliot Piña M.D. RADIATION ONCOLOGY ORDERABLE S Performing Organization Address City/State/ZIP Code Phon e Number [facility] na documented in this encounter Visit Diagnoses Diagnosis Malignant Neoplasm Of Rectum (HCC) documented in this encounter
--- OUTSIDE RECORDS SUMMARY | 2022-04-08 14:03 | XMS_ITS | Encounter Summary ---
:1970 Author Organization [facility] Address [address] [place] [address] Care Team Providers Name Role Phone Unavailable Primary Care Provider Unavailable Reason for Visit Radiation Therapy (Routine) - Authorized Specialty Diagnoses / Procedures Referred By Contact Refer red To Contact Diagnoses Malignant Neoplasm Of Rectum (HCC) Elliot Piña M.D. [facility] Radiation Oncology Procedures Prior Auth Rad Tx [place] IMRT COMPLEX [address] [facility] [place] [address] [address] [place] [address] Referral ID Status Reason Start Date Expiration Date Visits V isits Requested Authorized [id number] Authorized 12/21/2021 12/11/2022 28 28 Encounter Details Date Type Department Care Team Description 01/14/2022 Hospital Encounter Department of Radiation Fortunato Piña, Oncology in [facility] [place] [address] [facility] [address] [place] [phone] [phone] Social History Tobacco Use Types Packs/Day Years [...]
--- OUTSIDE RECORDS SUMMARY | 2022-04-08 14:03 | XMS_ITS | Encounter Summary ---
:1970 Author Organization [facility] Address [address] [place] [address] Care Team Providers Name Role Phone Unavailable Primary Care Provider Unavailable Encounter Details Date Type Department Care Team Description 12/25/2021 Hospital Encounter Department of Radiation Fortunato Piña, Oncology in [facility] [address] [facility] [address] [place] [address] [phone] Social History Tobacco Use Types Packs/Day Years [...]
--- OUTSIDE RECORDS SUMMARY | 2022-04-08 14:03 | XMS_ITS | Encounter Summary ---
:1970 [facility] Address [address] [place] [address] Care Team Providers Name Role Phone Unavailable Primary Care Provider Unavailable Reason for Referral Radiation Therapy (Routine) - Authorized Specialty Diagnoses / Procedures Referred By Contact Refer red To Contact Diagnoses Malignant Neoplasm Of Rectum (HCC) Elliot Piña M.D. [facility] Procedures Management Visit [address] [place] [phone] Referral ID Status Reason Start Date Expiration Date Visits V isits Requested Authorized [id number] Authorized 12/11/2021 12/11/2022 10 10 Reason for Visit Radiation Therapy (Routine) - Authorized Specialty Diagnoses / Procedures Referred By Contact Refer red To Contact Diagnoses Malignant Neoplasm Of Rectum (HCC) [facility]. [facility] Procedures Management Visit [address] [place] [phone] Referral ID Status Reason Start Date Expiration Date Visits V isits Requested Authorized [id number] Authorized 12/11/2021 12/11/2022 10 10 Encounter Details Date Type Department Care Team Description 01/12/2022 Hospital Encounter Department of Kim Beckman Neoplasm Radiation Oncology [place] Of Rectum (HCC) in [place], [address] [place] [address] 18[address] [facility] [address] [place], [place] [phone] [address] (Work) [phone] Social History Tobacco Use Types Packs/Day Years [...] Sign Reading Time Taken Comments Blood Pressure 143/73 01/12/2022 9:02 AM CDT Pulse - - Temperature - - Respiratory Rate - - Oxygen Saturation - - Inhaled Oxygen Concentration - - Weight 63.8 kg (140 lb 10.5 oz) 01/12/2022 9:02 AM CDT Height - - Body Mass Index 20.18 08/14/2020 8:29 AM CDT documented in this [...] encounter Progress Notes Kim Beckman M.D. - 01/12/2022 9:00 AM CDT ATTESTATION FOR MANAGEMENT VISIT I saw and evaluated the patient and participated in the morin portions of the service as noted below. I reviewed the documentation of Ms. Yodit Odell RN and agree with the findings and plan. The patient appears well on exam. We will continue with radiation as planned and monitor weekly. Kim Beckman M.D., 01/12/2022 SUBJECTIVE REASON FOR VISIT Evaluation for side [...] Weekly labs are being checked on at [facility]. Treatment Course: 1xRectum Plan ID Fractions Dose / Fraction (cGy) Dose Treated (cGy) Dose Planned (cGy) First Treatment Last Treatment Elapsed Days [id number] 12/24/2021 01/12/2022 Course Summary 12/24/2021 01/12/2022 The patient was seen and examined today with Dr. Beckman. The patient reports that he is doing well. He denies nausea, vomiting, fevers, sores to hands/feet/mouth, dysuria and rectal bleeding. Patient reports no hematuria since it was noted yesterday. Diarrhea is managed by taking 1-2 Imodium a day. Patient verbalizes 2/10 pain to rectal and groin area. Patient takes Advil for pain control and did request a prescription for Percocet to take as pain continues to increase with radiation treatments. He is using Aquaphor to rectal region 3 times daily and applying Vanicream to treatment field area twice daily.Taking Xeloda as prescribed. LABS December 31, 2021: WBC 7.23; Hgb 15.1; ANC 77.4; Plt 221, 000 PATIENT REPORTED SYMPTOM SCREEN FATIGUE (Scale: 0 = no fatigue; 10 = worst fatigue you can imagine): 2-3 PAIN (Scale: 0 = no pain; 10 = worst pain you can imagine): 2 OVERALL QUALITY OF LIFE (Scale: 0 = as bad as can be; 10 = as good as can be): 7 OBJECTIVE BP 143/73 Wt 63.8 kg BMI 20.18 kg/m?? PHYSICAL EXAM General: Alert and oriented in no apparent distress. Skin: darkening and moderate erythema to the rectal region. Mild erythema noted in groin area. Skin check over treatment field area was [...] apply Aquaphor to rectal area 3times a day and more frequently if needed. With increased erythema and irritation to rectal region patient was educated on the use of sitz baths 2-3 times a day as need. Pt also instructed to apply Aqauphor daily to groin region in addition to Vanicream. We asked our desk for a copy of weekly labs to review.A prescription for Percocet will sent to his preferred pharmacy today. He will contact us withany questions or concerns. We will continue with radiation treatment as planned. Signed by: Yodit Odell R.N. 01/12/2022 10:22 AM CDT documented in this encounter Plan of Treatment Scheduled Orders Name Type Priority Associated Diagnoses Order S chedule Management Visit Radiation Oncology Routine Malignant Neoplasm Once for 1 Of Rectum (HCC) Occurrences starting 01/12/2022 unti l 01/12/2022 documented as of this encounter Visit Diagnoses Diagnosis Malignant Neoplasm Of Rectum (HCC) documented in this encounter
--- OUTSIDE RECORDS SUMMARY | 2022-04-08 14:03 | XMS_ITS | Encounter Summary ---
:1970 Author Organization [facility] Address [address] [place] [address] Care Team Providers Name Role Phone Unavailable Primary Care Provider Unavailable Reason for Visit Radiation Therapy (Routine) - Authorized Specialty Diagnoses / Procedures Referred By Contact Refer red To Contact Diagnoses Malignant Neoplasm Of Rectum (HCC) Elliot Piña M.D. [facility] Radiation Oncology Procedures Prior Auth Rad Tx [place] IMRT COMPLEX [address] [facility] [place] [address] [address] [place] [address] Referral ID Status Reason Start Date Expiration Date Visits V isits Requested Authorized [id number] Authorized 12/21/2021 12/11/2022 28 Encounter Details Date Type Department Care Team Description 12/24/2021 Hospital Encounter Department of Radiation Fortunato Piña, Oncology in [facility] [place] [address] [facility] [address] [place] [phone] [phone] Social History Tobacco Use Types Packs/Day Years [...]
--- OUTSIDE RECORDS SUMMARY | 2022-04-08 14:03 | XMS_ITS | Encounter Summary ---
:1970 Author Organization [facility] Address [address] [place] [address] Care Team Providers Name Role Phone Unavailable Primary Care Provider Unavailable Reason for Visit Radiation Therapy (Routine) - Authorized Specialty Diagnoses / Procedures Referred By Contact Refer red To Contact Diagnoses Malignant Neoplasm Of Rectum (HCC) Elliot Piña M.D. [facility] Radiation Oncology Procedures Prior Auth Rad Tx [place] IMRT COMPLEX [address] [facility] [place] [address] [address] [place] [address] Referral ID Status Reason Start Date Expiration Date Visits V isits Requested Authorized [id number] Authorized 12/21/2021 12/11/2022 28 28 Encounter Details Date Type Department Care Team Description 12/30/2021 Hospital Encounter Department of Radiation Fortunato Piña, Oncology in [facility] [place] [address] [facility] [address] [place] [phone] [phone] Social History Tobacco Use Types Packs/Day Years [...]
--- OUTSIDE RECORDS SUMMARY | 2022-04-08 14:03 | XMS_ITS | Encounter Summary ---
:1970 Author Organization [facility] Address [address] [place] [address] Care Team Providers Name Role Phone Unavailable Primary Care Provider Unavailable Reason for Visit Radiation Therapy (Routine) - Authorized Specialty Diagnoses / Procedures Referred By Contact Refer red To Contact Diagnoses Malignant Neoplasm Of Rectum (HCC) Elliot Piña M.D. [facility] Radiation Oncology Procedures Prior Auth Rad Tx [place] IMRT COMPLEX [address] [facility] [place] [address] [address] [facility] [place] [address] Referral ID Status Reason Start Date Expiration Date Visits V isits Requested Authorized [id number] Authorized 12/21/2021 12/11/2022 28 28 Encounter Details Date Type Department Care Team Description 01/06/2022 Hospital Encounter Department of Radiation Fortunato Piña, Oncology in [facility] [place] [address] [facility] [address] [place] [phone] [phone] Social History Tobacco Use Types Packs/Day Years [...]
--- OUTSIDE RECORDS SUMMARY | 2022-04-08 14:03 | XMS_ITS | Encounter Summary ---
:1970 Author Organization [facility] Address [address] [place] [address] Care Team Providers Name Role Phone Unavailable Primary Care Provider Unavailable Reason for Visit Radiation Therapy (Routine) - Authorized Specialty Diagnoses / Procedures Referred By Contact Refer red To Contact Diagnoses Malignant Neoplasm Of Rectum (HCC) Elliot Piña M.D. [facility] Radiation Oncology Procedures Prior Auth Rad Tx CT IMRT COMPLEX [address] [place] [address] [address] [facility] [place] [place] [address] Referral ID Status Reason Start Date Expiration Date Visits V isits Requested Authorized [id number] Authorized 12/21/2021 12/11/2022 28 28 Encounter Details Date Type Department Care Team Description 01/01/2022 Hospital Encounter Department of Radiation Fortunato Piña, Oncology in [facility] [place] [address] [facility] [address] [place] [phone] [phone] Social History Tobacco Use Types Packs/Day Years [...]
--- OUTSIDE RECORDS SUMMARY | 2022-04-08 14:03 | XMS_ITS | Encounter Summary ---
:1970 Author Organization [facility] Address [address] [place] [address] Care Team Providers Name Role Phone Unavailable Primary Care Provider Unavailable Reason for Referral Outpatient (Routine) - Authorized Specialty Diagnoses / Procedures Referred By Contact Refer red To Contact Radiation Oncology Elliot Piña M .[facility]. [facility] [address] [place] [phone] Referral ID Status Reason Start Date Expiration Date Visits V isits Requested Authorized [id number] Authorized 12/11/2021 12/11/2022 10 10 Reason for Visit Outpatient (Routine) - Authorized Specialty Diagnoses / Procedures Referred By Contact Refer red To Contact Radiation Oncology Elliot Piña M .D. [facility] Region [address] [place] [phone] Referral ID Status Reason Start Date Expiration Date Visits V isits Requested Authorized [id number] Authorized 12/11/2021 12/11/2022 10 10 Encounter Details Date Type Department Care Team Description 01/11/2022 Hospital Encounter Department of Abilio Piña M.D. [address] [place] [phone] Malignant Neoplasm Radiation Oncology Isabel Lima R.N. [address] [place] [phone] Of Rectum (HCC) in [place], (Primary Dx) [place] [address] [place] [phone] Social History Tobacco Use Types Packs/Day Years [...] documented as of this encounter Progress Notes Isabel Lima R.N. - 01/11/2022 8:45 AM CDT SUBJECTIVE REASON FOR VISIT [...] Weekly labs are being checked on at [facility]. Treatment Course: 1xRectum Plan ID Fractions Dose / Fraction (cGy) Dose Treated (cGy) Dose Planned (cGy) First Treatment Last Treatment Elapsed Days [id number] 12/24/2021 01/11/2022 18 Course Summary 12/24/2021 01/11/2022 Patient reports he did notice 1 drop of blood with urination this morning and noticed drop of blood on tip of penis at the same time. He notes this was a 1 time occurrence. Diarrhea is being managed well with Imodium. He denies fevers, chills or vomiting or other new symptoms. OBJECTIVE There were no vitals taken for this visit. PHYSICAL EXAM General: Alert and oriented in no apparent distress. Skin: mild darkening and slight erythema to the rectal region. Skin check over treatment field area was completed today. ASSESSMENT / PLAN The patient is tolerating radiation treatment well overall. He will contact our care team if hematuria returns. We will reassess tomorrow during management appointment. He will contact us with any questions or concerns. We will continue with radiation treatment as planned. Signed by: Isabel Lima R.N. 01/11/2022 8:33 AM CDT documented in this encounter Plan of Treatment Scheduled Referrals Name Type Priority Associated Order Schedule Diagnoses Radiation Oncology Outpatient Referral Routine On ce for 1 nurse visit Occurrences sta rting (clinic) 01/11/2022 unti l 01/11/2022 documented as of this encounter Visit Diagnoses Diagnosis Malignant Neoplasm Of Rectum (HCC) - Janell lira documented in this encounter
--- OUTSIDE RECORDS SUMMARY | 2022-04-08 14:03 | XMS_ITS | Encounter Summary ---
:1970 Author Organization [facility] Address [address] [place] [address] Care Team Providers Name Role Phone Unavailable Primary Care Provider Unavailable Reason for Visit Radiation Therapy (Routine) - Authorized Specialty Diagnoses / Procedures Referred By Contact Refer red To Contact Diagnoses Malignant Neoplasm Of Rectum (HCC) Elliot Piña M.D. [facility] Radiation Oncology Procedures Prior Auth Rad Tx [place] IMRT COMPLEX [address] [facility] [place] [address] [address] [facility] [place] [address] Referral ID Status Reason Start Date Expiration Date Visits V isits Requested Authorized [id number] Authorized 12/21/2021 12/11/2022 28 28 Encounter Details Date Type Department Care Team Description 12/29/2021 Hospital Encounter Department of Radiation Fortunato Piña, Oncology in [facility] [place] [address] [facility] [address] [place] [phone] [phone] Social History Tobacco Use Types Packs/Day Years [...]
--- OUTSIDE RECORDS SUMMARY | 2022-04-08 14:03 | XMS_ITS | Encounter Summary ---
:1970 Author Organization [facility] Address [address] [place] [address] Care Team Providers Name Role Phone Unavailable Primary Care Provider Unavailable Encounter Details Date Type Department Care Team Description 01/07/2022 Orders Only Department of Oncology in Rosita Graham M.D. [place], [place] [facility] [address] [place] [address] [place] [address] [phone] Social History Tobacco Use Types Packs/Day Years [...]
--- OUTSIDE RECORDS SUMMARY | 2022-04-08 14:03 | XMS_ITS | Encounter Summary ---
:1970 Author Organization [facility] Address [address] [place] [address] Care Team Providers Name Role Phone Unavailable Primary Care Provider Unavailable Reason for Visit Radiation Therapy (Routine) - Authorized Specialty Diagnoses / Procedures Referred By Contact Refer red To Contact Diagnoses Malignant Neoplasm Of Rectum (HCC) Elliot Piña M.D. [facility] Radiation Oncology Procedures Prior Auth Rad Tx [place] IMRT COMPLEX [address] [facility] [place] [address] [address] [place] [address] Referral ID Status Reason Start Date Expiration Date Visits V isits Requested Authorized [id number] Authorized 12/21/2021 12/11/2022 28 Encounter Details Date Type Department Care Team Description 01/20/2022 Hospital Encounter Department of Radiation Fortunato Piña, Oncology in [facility] [place] [address] [facility] [address] [place] [phone] [phone] Social History Tobacco Use Types Packs/Day Years [...]
--- OUTSIDE RECORDS SUMMARY | 2022-04-08 14:03 | XMS_ITS | Encounter Summary ---
:1970 Author Organization [facility] Address [address] [place] [address] Care Team Providers Name Role Phone Unavailable Primary Care Provider Unavailable Encounter Details Date Type Department Care Team Description 01/14/2022 Clinical Communication Department of Radiation Beverly Akhtar, Oncology in [place], [place]., M.S. [place] [address] [facility] [address] [place] [phone] Social History Tobacco Use Types Packs/Day Years Used Date Smoking Tobacco: Every Day Cigarettes 0.5 S tarted: 1991 Smokeless Tobacco: Never Alcohol Use Standard Drinks/Week Comments Yes 14 (1 standard drink = 0.6 oz pure alcoh ol) Sex Assigned at Date Recorded Male 08/07/2019 10:59 AM CDT documented as of this encounter Miscellaneous Notes Telephone Encounter - Vidhi Akhtar P.A.-C., M.S. - 01/14/2022 9:43 AM CDT The patient told our radiation therapist today that his recent prescription for oxycodone-acetaminophen was sent to the wrong pharmacy and that it went to [facility] in [place] instead of [facility] [place]. He is requesting for a new prescription to be sent to [facility] in [place]. I discontinued the current prescription in [facility] and I also called the [facility] in [place] and requested for the prescription sent there to be canceled. They confirmed that it was canceled and will not be filled/available for pick-up there. I will now send a duplicate of the oxycodone-acetaminophen prescription as prescribed by Dr. Beckman on 01/12/22 to [facility]. Vidhi Akhtar P.A.-C. documented in this encounter Plan of Treatment Not on filedocumented as of this encounter Visit Diagnoses Not on filedocumented in this encounter
--- OUTSIDE RECORDS SUMMARY | 2022-04-08 14:03 | XMS_ITS | Encounter Summary ---
:1970 Author Organization [facility] Address [address] [place] [address] Care Team Providers Name Role Phone Unavailable Primary Care Provider Unavailable Reason for Visit Radiation Therapy (Routine) - Authorized Specialty Diagnoses / Procedures Referred By Contact Refer red To Contact Diagnoses Malignant Neoplasm Of Rectum (HCC) Elliot Piña M.D. [facility] Radiation Oncology Procedures Prior Auth Rad Tx [place] IMRT COMPLEX [address] [facility] [place] [address] [address] [facility] [place] [address] Referral ID Status Reason Start Date Expiration Date Visits V isits Requested Authorized [id number] Authorized 12/21/2021 12/11/2022 28 28 Encounter Details Date Type Department Care Team Description 01/13/2022 Hospital Encounter Department of Radiation Fortunato Piña, Oncology in [facility] [place] [address] [facility] [address] [place] [phone] [phone] Social History Tobacco Use Types Packs/Day Years [...]
--- OUTSIDE RECORDS SUMMARY | 2022-04-08 14:03 | XMS_ITS | Encounter Summary ---
:1970 Author Organization [facility] Address [address] [place] [address] Care Team Providers Name Role Phone Unavailable Primary Care Provider Unavailable Reason for Visit Radiation Therapy (Routine) - Closed Specialty Diagnoses / Procedures Referred By Contact Refer red To Contact Diagnoses Malignant Neoplasm Of Rectum (HCC) Elliot Piña M.D. [facility] Region Procedures Initial Rad Onc Treatment Planning CT Simulation [address] [place] [phone] Referral ID Status Reason Start Date Expiration Date Visits Requ ested Visits Authorized [id number] Closed 12/11/2021 12/11/2022 1 1 Encounter Details Date Type Department Care Team Description 12/15/2021 Hospital Encounter Department of Abilio Piña M.D. [address] [place] [phone] Malignant Neoplasm Radiation Oncology Isabel Lima, [place] [address] [place] [phone] Of Rectum (HCC) in [place], (Primary Dx) [place] [address] [place] [phone] Social History Tobacco Use Types Packs/Day Years [...] Pressure - - Pulse - - Temperature - - Respiratory Rate - - Oxygen Saturation - - Inhaled Oxygen Concentration - - Weight 63.4 kg (139 lb 12.4 oz) 12/15/2021 10:36 AM CDT Height - - Body Mass Index 20.06 08/14/2020 8:29 AM CDT documented in this encounter Medications at Time of Discharge Medication Sig Dispensed Refills Start Date End Date capecitabine (XELODA) 500 0 12/15/2021 mg tablet diphenhydrAMINE (BENADRYL) Take by mouth every 0 07/01/2020 25 mg capsule 6 (six) hours. As needed for seasonal allergies (hayfever) ibuprofen (ADVIL,MOTRIN) Take 200 mg by mouth 0 200 mg tablet every 6 (six) hours as needed for pain (as needed). documented as of this encounter Progress Notes Isabel Lima R.N. - 12/15/2021 11:00 AM CDT Has patient received IV contrast in the past? Yes History of adverse reaction to the contrast? no History of heart problems (CHF)? No History of kidney problems (current or history of dialysis, single kidney, kidney transplant)? no History of asthma? No Current inhaler use? no Lung assessment. clear to auscultation History of diabetes? No Taking Metformin? no If yes, written instructions given: Instructions for taking metformin after an injection of iodinated contrast material, [id number] Lab Results Component Value Date CREATININE 172.3 08/07/2019 Central Line: Yes Line Type: IVAD Power Injectable: Yes Power Injectable Identifiers Used: ID Card, Woodward Chain, or bracelet and Xray/Pre Owned Sales Manager with CT label viewable (Date if applicable09/24/2021) Tip Placement Verified: Yes Tip Placement Location: tip in the lower SVC Verified Date: September 24, 2021 Blood Return Verified: Yes Procedural pause conducted by RN and RTT staff to verify: correct patient identity, correct IV contrast protocol and delay time Patient tolerated the procedure well. Power Port card notes that port is [place] and to flush with 10 cc normal saline post media contrast - this was done post contrast sim today. Power port card was scanned into medical record today. Discharge instructions were given. Bottle of water provided to patient. documented in this encounter Plan of Treatment Not on filedocumented as of this encounter Procedures Procedure Name Priority Date/Time Associated Comments Diagnosis CREATININE WITH Routine 12/15/2021 9:45 AM Result s for this EGFR, S/P CDT procedure are i n the results section. documented in this encounter Results Creatinine with Estimated GFR (12/15/2021 9:45 AM CDT) Analysis Performed At [facility] Time Signature EXT Creatinine 0.9 0.73 - [place] 1.36 mg/dL [facility]) EXT eGFR-Non 103 29 - 900 [place] [facility]) Specimen (Source) Anatomical Collection Method Collection Time Re ceived Time Location / / Volume Laterality Blood (Blood, 12/15/2021 9:45 AM Venous) CDT Narrative This result has an attachment that is no t available. Historical Provider LAB BLOOD ADD-ON Performing Organization Address City/State/ZIP Code Phon e Number [facility], [address] [place] [address] [facility]) documented in this encounter Visit Diagnoses Diagnosis Malignant Neoplasm Of Rectum (HCC) - Janell lira documented in this encounter Administered Medications Inactive Administered Medications - up to 3 most recent administrations Medication Order MAR Action Action Date Dose Rate Site iohexoL 300 mg iodine/mL solution Given 12/15/2021 11:43 AM CDT 50 mL 50 mL (OMNIPAQUE) 50 mL, intravenous, Once in imaging, contrast, Starting on Tue12/15/21 at 1104, For 1 dose NaCl 0.9 % bolus 50 mL New Bag 12/15/2021 11:43 AM CDT 50 mL 600 mL/hr 50 mL, intravenous, at 600 mL/hr, Administer over 5 Minutes, Once, On Tue12/15/21 at 1115, For 1 dose sodium chloride 0.9 % injection 10 mL Given 12/15/2021 12:01 PM CDT 10 mL 10 mL, intravenous, During hospitalization, line care, Prior to discharge, Starting on Tue12/15/21 at 1036, For 1 dose, Implanted Vascular Access Device (IVAD) Venous Non-Valved: Followed by heparin flush prior to discharge. documented in this encounter
--- OUTSIDE RECORDS SUMMARY | 2022-04-08 14:03 | XMS_ITS | Encounter Summary ---
:1970 Author Organization [facility] Address [address] [place] [address] Care Team Providers Name Role Phone Unavailable Primary Care Provider Unavailable Reason for Visit Radiation Therapy (Routine) - Authorized Specialty Diagnoses / Procedures Referred By Contact Refer red To Contact Diagnoses Malignant Neoplasm Of Rectum (HCC) Elliot Piña M.D. [facility] Radiation Oncology Procedures Prior Auth Rad Tx [place] IMRT COMPLEX [address] [facility] [place] [address] [address] [facility] [place] [address] Referral ID Status Reason Start Date Expiration Date Visits V isits Requested Authorized [id number] Authorized 12/21/2021 12/11/2022 28 28 Encounter Details Date Type Department Care Team Description 01/07/2022 Hospital Encounter Department of Radiation Fortunato Piña, Oncology in [facility] [place] [address] [facility] [address] [place] [phone] [phone] Social History Tobacco Use Types Packs/Day Years [...]
--- OUTSIDE RECORDS SUMMARY | 2022-04-08 14:03 | XMS_ITS | Encounter Summary ---
:1970 Author Organization [facility] Address [address] [place] [address] Care Team Providers Name Role Phone Unavailable Primary Care Provider Unavailable Reason for Referral Radiation Therapy (Routine) - Authorized Specialty Diagnoses / Procedures Referred By Contact Refer red To Contact Diagnoses Malignant Neoplasm Of Rectum (HCC) Elliot Piña M.D. [facility] Procedures Management Visit [address] [place] [phone] Referral ID Status Reason Start Date Expiration Date Visits V isits Requested Authorized [id number] Authorized 12/11/2021 12/11/2022 10 10 Reason for Visit Radiation Therapy (Routine) - Authorized Specialty Diagnoses / Procedures Referred By Contact Refer red To Contact Diagnoses Malignant Neoplasm Of Rectum (HCC) Elliot Piña M.D. [facility] Procedures Management Visit [address] [place] [phone] Referral ID Status Reason Start Date Expiration Date Visits V isits Requested Authorized [id number] Authorized 12/11/2021 12/11/2022 10 10 Encounter Details Date Type Department Care Team Description 01/20/2022 Hospital Encounter Department of Elliot Piña Neoplasm Of Rectum (HCC); Radiation Oncology [place] [facility] in [place], [address] [place] [address] [address] [facility] [address] [place], [place] [phone] (Work) [phone] Social History Tobacco Use Types Packs/Day Years [...] Sign Reading Time Taken Comments Blood Pressure 134/73 01/20/2022 8:40 AM CDT Pulse 64 01/20/2022 8:40 AM CDT Temperature 36.7 ??C (98 ??F) 01/20/2022 8:40 AM CDT Respiratory Rate - - Oxygen Saturation - - Inhaled Oxygen Concentration - - Weight 62.7 kg (138 lb 3.2 oz) 01/20/2022 8:40 AM CDT Height - - Body Mass Index 19.83 08/14/2020 8:29 AM CDT documented in this [...] encounter Progress Notes Elliot Piña M.D. - 01/20/2022 9:00 AM CDT SUBJECTIVE REASON FOR VISIT [...] Weekly labs are being checked on at [facility]. Treatment Course: 1xRectum Plan ID Fractions Dose / Fraction (cGy) Dose Treated (cGy) Dose Planned (cGy) First Treatment Last Treatment Elapsed Days [id number] 12/24/2021 01/15/2022 [id number] 01/18/2022 01/20/2022 2 Course Summary 12/24/2021 01/20/2022 27 The patient was seen and examined today with Dr. Piña The patient reports that he is doing well. He denies nausea, vomiting, fevers, sores to hands/feet/mouth, dysuria, hematuria, rectal bleeding or diarrhea. Diarrhea is being managed by taking one Imodium per day. Patient verbalized 3/10 pain in rectal and groin area. Patient is taking one Percocet a day and Advil as needed for pain control. He reports using Aquahpor 1-2x a day to rectal and groin area. Also applying Vanicream to 1-2x daily. Taking Xeloda as prescribed. LABS December 31, 2021: WBC 7.23; Hgb 15.1; ANC 7.4; Plt 221,000 January 14, 2022: WBC 5.11; Hgb 13.8; ANC 3.8; Plt 155,000 PATIENT REPORTED SYMPTOM SCREEN FATIGUE (Scale: 0 = no fatigue; 10 = worst fatigue you can imagine): 1 PAIN (Scale: 0 = no pain; 10 = worst pain you can imagine): 3 OVERALL QUALITY OF LIFE (Scale: 0 = as bad as can be; 10 = as good as can be): 7 OBJECTIVE BP 134/73 (BP Location: Right arm, Patient Position: Sitting, Cuff Size: Small) Pulse 64 Temp 36.7 ??C (Temporal) Wt 62.7 kg BMI 19.83 kg/m?? PHYSICAL EXAM General: Alert and oriented in no apparent distress. Skin: Moderate erythema to left and right groin area. Quarter size area of dry desquamation noted toright groin area. Moist desquamation and erythema to perineum and rectal [...] 2021; anticipated completion on January 27, 2022 Due to increasing skin breakdown and irritation patient instructed on white vinegar soaks 2-4x daily, Xeroform application 2x daily and liberal Aquaphor application 4x daily. Patient verbalized understanding of plan. He will continue with current pain management regimen. We will see him back on Tuesdayfor a skin check. He will contact us with any questions or concerns. We will continue with radiationtreatment as planned. Signed by: Yodit Odell R.N. 01/20/2022 9:10 AM CDT I saw and evaluated the patient and participated in the morin portions of the service. I reviewed the documentation of Yodit Odell R.N. and agree with the findings and plan. The patient appears well on exam. 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 He will begin nightly dressing changes as well as copious Aquaphor application throughout the day. Nursing staff will see him on Tuesday to check on his progress. He will continue with treatment as planned. Signed by: Elliot Piña M.D. 01/20/2022 10:35 AM CDT [facility] Rad[facility] Therapy Center [address] [place] [address] documented in this encounter Plan of Treatment Scheduled Orders Name Type Priority Associated Diagnoses Order S chedule Management Visit Radiation Oncology Routine Malignant Neoplasm Once for 1 Of Rectum (HCC) Occurrences starting 01/20/2022 unti l 01/20/2022 documented as of this encounter Visit Diagnoses Diagnosis Malignant Neoplasm Of Rectum (HCC) Nicotine Dependence documented in this encounter
--- OUTSIDE RECORDS SUMMARY | 2022-04-08 14:03 | XMS_ITS | Encounter Summary ---
:1970 Author Organization [facility] Address [address] [place] [address] Care Team Providers Name Role Phone Unavailable Primary Care Provider Unavailable Reason for Visit Radiation Therapy (Routine) - Authorized Specialty Diagnoses / Procedures Referred By Contact Refer red To Contact Diagnoses Malignant Neoplasm Of Rectum (HCC) Elliot Piña M.D. [facility] Radiation Oncology Procedures Prior Auth Rad Tx [place] IMRT COMPLEX [address] [facility] [place] [address] [address] [facility] [place] [place] [address] Referral ID Status Reason Start Date Expiration Date Visits V isits Requested Authorized [id number] Authorized 12/21/2021 12/11/2022 28 28 Encounter Details Date Type Department Care Team Description 01/19/2022 Hospital Encounter Department of Radiation Fortunato Piña, Oncology in [facility] [place] [address] [facility] [address] [place] [phone] [phone] Social History Tobacco Use Types Packs/Day Years [...]
--- OUTSIDE RECORDS SUMMARY | 2022-04-08 14:04 | XMS_ITS | Encounter Summary ---
:1970 Author Organization [facility] Address [address] [place] [address] Care Team Providers Name Role Phone Unavailable Primary Care Provider Unavailable Reason for Visit Appointment Request (Routine) - Closed Specialty Diagnoses / Procedures Referred By Contact Refer red To Contact Radiation Oncology Diagnoses Mass Perirectal GasconadeMichele medeiros M.D. [facility] Procedures m [address] [place] [address] Referral ID Status Reason Start Date Expiration Date Visits Requ ested Visits Authorized [id number] Closed 07/28/2020 07/28/2021 1 1 Encounter Details Date Type Department Care Team Description 08/14/2020 Hospital Encounter Department of Elliot Piña Neoplasm Radiation Oncology [place] Of Rectum (HCC) in [place], [facility] [address] [facility] (Primary Dx) [place], [place] [address] [facility] [address] [place], [place] [phone] (Work) [phone] Social History Tobacco Use Types Packs/Day Years [...] Oncology consultation with Dr. Hank Castellanos at [facility] who discussed that since this is stage [...] chest, 2020 SOCIAL HISTORY He lives in [place], [place]. He has a girlfriend who lives in [place]. He has 3 children, ages 27, 20, and 15. He works 3 days a week as a [employer] at [employer] in [place]. He is a current every day smoker [...] 6:09 PM CDT Radiation Oncology [facility] Radiation Therapy Center [address] [place] [address] documented in this encounter Miscellaneous Notes Addendum [...]
--- OUTSIDE RECORDS SUMMARY | 2022-04-08 14:04 | XMS_ITS | Encounter Summary ---
:1970 Author Organization [facility] Address [address] [place] [address] Care Team Providers Name Role Phone Unavailable Primary Care Provider Unavailable Reason for Referral Outpatient (Routine) - Authorized Specialty Diagnoses / Procedures Referred By Contact Refer red To Contact Diagnoses Malignant Neoplasm Of Rectum (HCC) Elliot Piña M.D. [address] [place] [address] Referral ID Status Reason Start Expiration Visits Visits Date Date Requested Authorized [id number] Authorized Patient 12/11/2021 12/11/2022 1 1 Preference Outpatient (Routine) - Authorized Specialty Diagnoses / Procedures Referred By Contact Refer red To Contact Radiation Oncology Elliot Piña M .D. [facility] [address] [place] [address] Referral ID Status Reason Start Date Expiration Date Visits V isits Requested Authorized [id number] Authorized 12/11/2021 12/11/2022 10 10 Radiation Therapy (Routine) - Authorized Specialty Diagnoses / Procedures Referred By Contact Refer red To Contact Diagnoses Malignant Neoplasm Of Rectum (HCC) Elliot Pñia M.D. [facility] Procedures Management Visit [address] [place], [place] [address] Referral ID Status Reason Start Date Expiration Date Visits V isits Requested Authorized [id number] Authorized 12/11/2021 12/11/2022 10 10 Radiation Therapy (Routine) - Authorized Specialty Diagnoses / Procedures Referred By Contact Refer red To Contact Diagnoses Malignant Neoplasm Of Rectum (HCC) Elliot Piña M.D. [facility] Radiation Oncology Procedures Prior Auth Rad Tx [place] IMRT COMPLEX [address] [place] [address] [address] [place] [address] Referral ID Status Reason Start Date Expiration Date Visits V isits Requested Authorized [id number] Authorized 12/21/2021 12/11/2022 28 28 Radiation Therapy (Routine) - Closed Specialty Diagnoses / Procedures Referred By Contact Refer red To Contact Diagnoses Malignant Neoplasm Of Rectum (HCC) Elliot Piña M.D. [facility] Procedures Initial Rad Onc Treatment Planning CT Simulation [address] [place] [address] Referral ID Status Reason Start Date Expiration Date Visits Requ ested Visits Authorized [id number] Closed 12/11/2021 12/11/2022 1 1 Encounter Details Date Type Department Care Team Description 12/11/2021 Orders Only Department of Elliot Piña N eoplasm Of Radiation Oncology in [place] Rectum (HCC) ([place] [address] [facility] Dx) [address] [place] [address] Social History Tobacco Use Types Packs/Day Years Used Date Smoking Tobacco: Every Day Cigarettes 0.5 S tarted: 1991 Smokeless Tobacco: Never Alcohol Use Standard Drinks/Week Comments Yes 14 (1 standard drink = 0.6 oz pure alcoh ol) Sex Assigned at Date Recorded Male 08/07/2019 10:59 AM CDT documented as of this encounter Plan of Treatment Scheduled Orders Name Type Priority Associated Order Schedule Diagnoses Prior Auth Rad Tx Radiation Oncology Routine Malignant Neoplas m Ordered: 12/11/2021 Of Rectum (HCC) Management Visit Radiation Oncology Routine Malignant Neoplasm 10 Occurrences Of Rectum (HCC) starting until 3 Scheduled Referrals Name Type Priority Associated Order Schedule Diagnoses Radiation Oncology Outpatient Referral Routine 10 Occurrences nurse visit starting 2021 (clinic) until 5 documented as of this encounter Results Initial Rad Onc Treatment Planning CT Simulation (12/15/2021 11:40 AM CDT) Specimen (Source) Anatomical Location Collection Method / Collectio n Time Received Time / Laterality Volume Narrative KAELA EDWARDS - 12/15/2021 11:40 AM CDT Giovana Whalen, RTT ? 12/15/2021 11:41 AM Initial Rad Onc Treatment Planning CT Si mulation Date/Time: 12/15/2021 11:40 AM Performed by: Elliot Piña M.D. Authorized by: Elliot Piña M.D. Elliot Piña M.D. RADIATION ONCOLOGY ORDERABLE S Performing Organization Address City/State/ZIP Code Phon e Number [facility] na documented in this encounter Visit Diagnoses Diagnosis Malignant Neoplasm Of Rectum (HCC) - Janell lira Malignant Neoplasm Of Rectum (HCC) documented in this encounter
--- OUTSIDE RECORDS SUMMARY | 2022-04-08 14:04 | XMS_ITS | Encounter Summary ---
:1970 Author Organization [facility] Address [address] [place] [address] Care Team Providers Name Role Phone Unavailable Primary Care Provider Unavailable Encounter Details Date Type Department Care Team Description 10/20/2013 Hospital Encounter HX [facility] Leeanne Marino ED, M.D. Social History Tobacco [...] in this encounter Discharge Summaries Chandrika Davey R.N. - 10/20/2013 1:40 AM CDT ED Discharge Instructions [address] [address] Name: JAE REAL Date of : 1970 12:00 AM Visit Date: 10/20/2013 12:55 AM [facility] Number: [id number] Address: [address] [place] [address] Primary Care Provider: PCP, KEVIN - DANIEL IMPORTANT: [facility] in [place] Pool would like to thank you for allowing [...] Provider No Appointments found Patient Education Materials: [id number] SINUSITIS [Abx tx] The sinuses are air-filled [...] a towel soaked in hot water. Or, hoop driving machine operator helper the shower and direct the hot spray onto your face. This is a good way to inhale warm water vapor and get heat on your face at the same time. (Cover your mouth and nose with your hands so you can still breathe as you do this.) ?? Use a vaporizer with products such as [employer] VapoRub (contains menthol) at night. Suck on peppermint, menthol or eucalyptus hard candies during the day. ?? An expectorant containing guaifenesin (such as Robitussin), helps to thin the mucus and promote drainage from the sinuses. ?? Nure-vft-gubhyei decongestants may be used unless a similar [...] directed by your healthcare provider Seizure ?? [phone] [facility], [address] [place] [address], [place] [address]. All rights reserved. This information is not intended as a substitute for professional medical care. Always follow your healthcare professional's instructions. ED Tests and Procedures: Order Status Discharge Prescriptions & Home Medications: Medication/Strength Dose Route Frequency Indications/Special Instructions/Comments/Notes 46HYDROcodone-acetaminophen ([place] 5 mg-325 mg oral tablet) 1 tab(s) [...] arrange a ride home with a responsible democrat. I, JAE REAL , or responsible democrat have received this information and my questions have been answered. I have discussed any challenges I see with this plan with the nurse or physician. Patient Signature or Responsible Green Party/Relationship Date Time Provider Signature Date Time [...] arrange a ride home with a responsible democrat. I, JAE REAL , or responsible democrat have received this information and my questions have been answered. I have discussed any challenges I see with this plan with the nurse or physician. Patient Signature or Responsible Green Party/Relationship Date Time Provider Signature Date Time This document has images extracted. Please consider using [employer] for all your patient education needs. Source: [facility] POWERCHART Document Id: [id number] Chandrika Davey R.N. - 10/20/2013 1:40 AM CDT ED Depart Summary [facility] Emergency Department Clinical Discharge Summary PERSON INFORMATION Name JAE REAL Age 43 Years 1970 12:00 AM Sex Male Language Kazakh PCP PCP, UNASSIGNED - [place] Marital Status Single Visit Id Visit Reason UC - Sinus Pain or Congestion; UC-SINUS PAIN OR CONGESTION Specialty Enc Type Emergency Med Service Emergency Medicine Referred by Track Group LUIS ANTONIO ED Discharge 10/20/2013 1:40 AM Tracking Id [id number] Checkout 10/20/2013 1:40 AM Checkin 10/20/2013 12:55 AM Acuity 5 -Non Urgent Dispo Type * Discharged to Home or Self Care Arrival 10/20/2013 12:55 AM Reg Status Complete LOS 000 00:45 Address: [address] [place] [address] Comment: PROVIDER INFORMATION Provider Role Provider Contact Time LEEANNE CARROLL MD ED Provider 10/20/13 00:56 CHANDRIKA DAVEY RN ED Nurse 10/20/13 01:00 DIAGNOSIS Sinusitis Acute NOS Comment: PATIENT EDUCATION INFORMATION Instructions: SINUSITIS, Abx Tx Follow up: With: Address: When: Follow up with primary care provider Within As Needed Comments: Source: [facility] Workers On Call Document Id: [id number] documented in this encounter ED Notes Chandrika [...] DAVEY RN - 10/20/2013 1:39 CDT Source: [facility] Workers On Call Document Id: [id number] CDT!5 Chandrika Davey R.N. - 10/20/2013 1:39 AM CDT ED Education ED Education Entered On: 10/20/2013 1:39 CDT Performed On: 10/20/2013 1:39 CDT by CHANDRIKA DAVEY RN Education ED Education Grid Topics : Medication Individuals Taught : Patient Barriers to Learning : None evident Teaching Method : Demonstration Teaching Evaluation : Able to teach back CHANDRIKA DAVEY RN - 10/20/2013 1:39 CDT Source: [employer] Document Id: [id number] CDT!9 Chandrika Davey R.N. - 10/20/2013 1:39 AM CDT ED Pain Assessment ED Pain Assessment Entered On: 10/20/2013 1:39 CDT Performed On: 10/20/2013 1:39 CDT by CHANDRIKA DAVEY RN Pain Assessment Pain Symptoms : No CHANDRIKA DAVEY RN - 10/20/2013 1:39 CDT Source: [employer] Document Id: [id number] CDT!3 Leeanne Carroll M.D. - 10/20/2013 1:15 [...] Time 10/20/2013 01:16:00, to home. Prescriptions: doxycycline, [place]. Patient was given the following educational materials: SINUSITIS, Abx Tx. Follow up with: Follow up with primary care provider Within As Needed. Counseled: Patient, Regarding diagnosis, Regarding diagnostic results, Regarding treatment plan, Regarding prescription, Patient indicated understanding of instructions. Electronically Signed By: LEEANNE CARROLL MD On: 10/27/2013 02:58 PM Modified by and Electronically Signed by: LEEANNE CARROLL MD On: 10/27/2013 02:58 PM Source: [facility] POWERCHART Document Id: [id number]} Conversion, Historical Provider Ser - 10/20/2013 1:03 [...] PNED ; Probability: 0 ; Diagnosis Code: [id number] Triage Chief Complaint Description : Pt c/o sinus pain and pressure. Concerned he has a sinus infection. Information Given By : Patient Accompanied By : Alone Mode of Arrival ED : Private vehicle, Ambulatory Track : Medical Languages : Kazakh Vital Signs Assessed : Yes Treatments Prior [...] Domestic Abuse Concerns : None SKYLA FONTAINE - 10/20/2013 1:03 CDT Gastrointestinal Nutrition ED : Adequate SKYLA FONTAINE SARAH - 10/20/2013 1:03 CDT Musculoskeletal Fall Prevention Education Provided : Yes SKYLA FONTAINE SARAH - 10/20/2013 1:03 CDT Social Habits Tobacco Use/Currently Using : No Smoking Status : Never smoker SKYLA FONTAINE SARAH - 10/20/2013 1:03 CDT [facility] Document Id: [id number] CDT!58 documented in this encounter Miscellaneous Notes Miscellaneous - Chandrika Davey RHari - 10/20/2013 1:39 AM CDT Valuables/Belongings Valuables/Belongings Entered On: 10/20/2013 1:40 CDT Performed On: 10/20/2013 1:39 CDT by CHANDRIKA DAVEY RN Valuables/Belongings Belongings Sent Home With : patient. Home Medication Disposition : None brought in with patient CHANDRIKA DAVEY RN - 10/20/2013 1:39 CDT Source: [facility] [email or web address] Document Id: [id number] CDT!4 Miscellaneous - Chandrika Davey RHari - 10/20/2013 12:55 AM CDT Facility Charge [...] Control : 5 Lynx Visit Level : 62795 Level 3 Treatments Prior to Arrival : None CHANDRIKA DAVEY RN - 10/20/2013 1:40 CDT Source: [email or web address] Document Id: [id number] CDT!18 documented in this encounter Plan of Treatment Not on filedocumented as of this encounter Visit Diagnoses Not on filedocumented in this encounter
--- OUTSIDE RECORDS SUMMARY | 2022-04-08 14:04 | XMS_ITS | Encounter Summary ---
:1970 Author Organization [facility] Address [address] [place] [address] Care Team Providers Name Role Phone Unavailable [...]
--- OUTSIDE RECORDS SUMMARY | 2022-04-08 14:04 | XMS_ITS | Encounter Summary ---
:1970 Author Organization [facility] Address [address] [place] [address] Care Team Providers Name Role Phone Unavailable Primary Care Provider Unavailable Encounter Details Date Type Department Care Team Description 08/12/2020 Orders Only Department of Radiation Elliot Piña , Oncology in [facility] [address] [facility] [address] [place] [phone] (Wo rk) Social History Tobacco Use Types Packs/Day Years Used Date Smoking Tobacco: Every Day Cigarettes 0.5 Smokeless Tobacco: Never Sex Assigned at Date Recorded Male 08/07/2019 10:59 AM CDT documented as of this encounter Plan of Treatment Not on filedocumented as of this encounter Visit Diagnoses Not on filedocumented in this encounter
--- OUTSIDE RECORDS SUMMARY | 2022-04-08 14:04 | XMS_ITS | Encounter Summary ---
:1970 Author Organization [facility] Address [address] [place] [address] Care Team Providers Name Role Phone Unavailable Primary Care Provider Unavailable Encounter Details Date Type Department Care Team Description 10/04/2016 Hospital Encounter HX [facility] Genna Castle M.D., [facility] [address] [place] [phone] (Wo rk) Social History Tobacco Use Types Packs/Day Years Used Date Smoking Tobacco: Never Sex Assigned at Date Recorded Male 08/07/2019 10:59 AM CDT documented as of this encounter Plan of Treatment Not on filedocumented as of this encounter Visit Diagnoses Not on filedocumented in this encounter
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
--- OUTSIDE RECORDS SUMMARY | 2022-04-08 14:04 | XMS_ITS | Encounter Summary ---
:1970 Author Organization [facility] Address [address] [place] [address] Care Team Providers Name Role Phone Unavailable Primary Care Provider Unavailable Encounter Details Date Type Department Care Team Description 12/08/2017 Orders Only Department of Patrica Vazquez Pain Knee Right Orthopedic Surgery in [facility] (Prima ry Dx) [address] [phone] Social History Tobacco Use Types [...]
--- OUTSIDE RECORDS SUMMARY | 2022-04-08 14:04 | XMS_ITS | Encounter Summary ---
:1970 Author Organization [facility] Address [address] [place] [address] Care Team Providers Name Role Phone Unavailable Primary Care Provider Unavailable Encounter Details Date Type Department Care Team Description 02/17/2009 - Hospital Encounter HX [facility] Juhi Contreras, 06/21/2011 [facility] [employer] [employer], [facility] [place], R.N. Social History Tobacco Use Types Packs/Day Years Used Date Smoking Tobacco: Never Assessed Sex Assigned at Date Recorded Male 08/07/2019 10:59 AM CDT documented as of this encounter Plan of Treatment Not on filedocumented as of this encounter Visit Diagnoses Not on filedocumented in this encounter
--- OUTSIDE RECORDS SUMMARY | 2022-04-08 14:04 | XMS_ITS | Encounter Summary ---
:1970 Author Organization [facility] Address [address] [place] [address] Care Team Providers Name Role Phone Unavailable Primary Care Provider Unavailable Encounter Details Date Type Department Care Team Description 12/01/2017 Hospital Encounter Department of Patrica Vazquez Knee Right Radiology, [facility], in [place], [place] [address] [place] [address] Social History Tobacco Use Types [...] right knee osseous abnormality. Patrica Vazquez P.A.-C. [facility] ED[facility] documented in this encounter Visit Diagnoses Diagnosis Pain Knee Right documented in this encounter
--- OUTSIDE RECORDS SUMMARY | 2022-04-08 14:04 | XMS_ITS | Encounter Summary ---
:1970 Author Organization [facility] Address [address] [place] [address] Care Team Providers Name Role Phone Unavailable Primary Care Provider Unavailable Reason for Referral MRI/CAT/PET Scan (Routine) - Closed Specialty Diagnoses / Procedures Referred By Contact Refer red To Contact Radiology Diagnoses Pain Knee Right Patrica Vazquez, [facility] Region Procedures MR Knee Right without IV Contrast [place] MRI LWR EXT JOINT WO CNTRST HC MRI LWR EXT JOINT WO CNTRST [place] MRI LWR EXT JOINT WO CNTRST P.A.-C. [address] [place] [phone] Referral ID Status Reason Start Date Expiration Date Visits Requ ested Visits Authorized [id number] Closed 12/01/2017 12/01/2018 1 1 Reason for Visit Reason Comments Injury Pain Appointment Request (Routine) - Closed Specialty Diagnoses / Procedures Referred By Contact Refer red To Contact Orthopedic Surgery Referral ID Status Reason Start Date Expiration Date Visits Requ ested Visits Authorized [id number] Closed 12/01/2017 12/01/2018 1 1 Encounter Details Date Type Department Care Team Description 12/01/2017 Comprehensive Visit Department of Tianna Vazquez Kn ee Right Orthopedic Surgery Patrica Alberts (Primary Dx) in [facility] [address] [phone] Social History Tobacco Use Types Packs/Day Years [...] he states that 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 He is to continue to ice and elevate as needed. He may continue to take over the counter pain medications for breakthrough pain. He will remain off of work until results of the MRI. Patient understood and agreed to the above plan. #1 Pain Knee Right documented in this encounter Plan of Treatment Not on filedocumented as of this encounter Results MR Knee [...] knee. Patrica Vazquez P.A.-C. [facility] PROCEDURES DX Knee Right 4+ Views [...] right knee osseous abnormality. Patrica Vazquez P.A.-C. [facility] documented in this encounter Visit Diagnoses Diagnosis Pain Knee Right - Primary Pain Knee Right Pain Knee Right documented in this encounter
--- OUTSIDE RECORDS SUMMARY | 2022-04-08 14:04 | XMS_ITS | Encounter Summary ---
:1970 Author Organization [facility] Address [address] [place] [address] Care Team Providers Name Role Phone Unavailable Primary Care Provider Unavailable Encounter Details Date Type Department Care Team Description 12/08/2020 Clinical Communication Department of Raul Suarez, Oncology in [place] [address] [phone] Social History Tobacco Use Types Packs/Day Years Used Date Smoking Tobacco: Every Day Cigarettes 0.5 Smokeless Tobacco: Never Sex Assigned at Date Recorded Male 08/07/2019 10:59 AM CDT documented as of this encounter Plan of Treatment Not on filedocumented as of this encounter Visit Diagnoses Not on filedocumented in this encounter
--- OUTSIDE RECORDS SUMMARY | 2022-04-08 14:04 | XMS_ITS | Encounter Summary ---
:1970 Author Organization [facility] Address [address] [place] [address] Care Team Providers Name Role Phone Unavailable [...]
--- OUTSIDE RECORDS SUMMARY | 2022-04-08 14:04 | XMS_ITS | Encounter Summary ---
:1970 Author Organization [facility] Address [address] [place] [address] Care Team Providers Name Role Phone Unavailable Primary Care Provider Unavailable Encounter Details Date Type Department Care Team Description 09/11/2019 Abstract [facility] External, Referring Provider Social History Tobacco Use [...] Phon e Number EXTERNAL NON-INTERFACED LAB [address] [place], [place] [address] documented in this encounter Visit Diagnoses Not on filedocumented in this encounter
--- OUTSIDE RECORDS SUMMARY | 2022-04-08 14:04 | XMS_ITS | Encounter Summary ---
:1970 Author Organization [facility] Address [address] [place] [address] Care Team Providers Name Role Phone Unavailable Primary Care Provider Unavailable Reason for Referral MRI/CAT/PET Scan (Routine) - Closed Specialty Diagnoses / Procedures Referred By Contact Refer red To Contact Radiology Diagnoses Pain Knee Right Patrica Vazquez [facility] Region Procedures MR Knee Right without IV Contrast [place] MRI LWR EXT JOINT WO CNTRST HC MRI LWR EXT JOINT WO CNTRST [place] MRI LWR EXT JOINT WO CNTRST P.A.-C. [address] [place] [phone] Referral ID Status Reason Start Date Expiration Date Visits Requ ested Visits Authorized [id number] Closed 12/01/2017 12/01/2018 1 1 Reason for Visit MRI/CAT/PET Scan (Routine) - Closed Specialty Diagnoses / Procedures Referred By Contact Refer red To Contact Radiology Diagnoses Pain Knee Right Patrica Vazquez [facility] Region Procedures MR Knee Right without IV Contrast [place] MRI LWR EXT JOINT WO CNTRST HC MRI LWR EXT JOINT WO CNTRST [place] MRI LWR EXT JOINT WO CNTRST P.A.-C. [address] [place] [phone] Referral ID Status Reason Start Date Expiration Date Visits Requ ested Visits Authorized [id number] Closed 12/01/2017 12/01/2018 1 1 Encounter Details Date Type Department Care Team Description 12/02/2017 Hospital Encounter Department of Patrica Vazquez Knee Right Radiology, [facility], in [address] [phone] Social History Tobacco Use Types Packs/Day Years [...] degenerative arthritis right knee. Patrica Vazquez P.A.-C. IMG MRI PROCEDURES documented in this encounter Visit Diagnoses Diagnosis Pain Knee Right documented in this encounter
== END 2022-04-08 14:01 | disposition home or self-care (01) ==
LOC: RAD 14:00
PROVIDERS: Visit Provider Internal Medicine Hematology & Oncology
DX: C20 Malignant neoplasm of rectum (principal); R91.8 Other nonspecific abnormal finding of lung field; R59.0 Localized enlarged lymph nodes
CPT/HCPCS: 78815; A9552

== ENCOUNTER 2022-06-18 08:00 | Outpatient (RCR) | payer OTHER, SELFPAY ==
--- NOTE | 2022-06-01 13:47 | OT.OPLE ---
OT Outpatient Lymphedema Eval OT Outpatient Lymphedema Eval Start: 05/26/22 08:02 Freq: Status: Active Protocol: Document 05/26/22 08:03 AMB (Rec: 05/26/22 18:33 AMB [id number]) E-signed By Ayanna Rodrigez, OTR/L, CLT, OPERATIONS LEADER OT Outpatient Evaluation Details Type Type Eval Complexity Medium OT OP Lymphedema Evaluation Insurance Information Insurance Information [employer] Current Condition/Medical Diagnosis Referring Provider Alaina Patel, KARTHIK Treatment Diagnosis Lymphedema in LLE PMH includes Stage IVB Metastatic rectal adenocarcinoma Date Of Onset 3 1/2 weeks ago Medical Contraindications CA Current Work Status Current Work Status Unemployed Subjective Subjective Pt has a history of metastatic rectal adenocarcinoma for which he has undergone 25 rounds of radiation in groin/ pelvis and is currently receiving chemotherapy every 2 weeks. Pt has also had a LN biopsy in the left groin and does have known mets in the lungs and several areas of LN. Approximately 3 1/2 weeks ago he started to develop pain in the left groin along with swelling in his left leg. He did have an US to r/o blood clot, diagnosed with lymphedema. Pt was referred to OT to address lymphedema in the LLE. Pt states some days it is worse than others, states its actually much better this week than it was last week, he is not sure why. Pt states it is very difficult for him to elevate it during the day much as he can't sit due to pain in his rectum and doesn't like to lay down as he is pretty active. Pt does try to elevate it at night. Pt states he has a very difficult time bending over to put his socks and shoes on due to swelling and has trouble getting his pants on with his leg swollen. Pt states the swelling is actually quite painful at times, rates his pain at an 8/ 10, describes it as aching / throbbing / tight. Pt is really hoping to reduce the swelling in order to relieve pain, be more mobile, and to be able to get dressed with less difficulty. Pt states he has to wear pads as sometimes he leaks BM, states he has days where he gets diarrhea and it can be tough to get to the bathroom. Pt lives with his girlfriend who is very supportive and helpful. Pt is currently not able to work. Medical History Medical History Cancer Treatment/Surgery, Radiation,Smoking,Chemo Medical History Comments (copied from oncology note ) Oncology Hx: Oncology history: Metastatic rectal adenocarcinoma stage IV at presentation. Solid Tumor Panel: + PIK3CA, +SMAD4, + TP53. No other mutations, MSI stable. 1. 01/2020 Started developing some pelvic pressure with some blood in his stools. Baseline bowel movements approximately 2-3 per day started increasing up to 5-6 per day 2. 06/2020 Noticed enlarged lymph node in the left groin with continued pelvic pressure and frequency of bowels and blood in stools. 3. 07/24/20 colonoscopy did confirm a nearly obstructing adenocarcinoma in the rectum. Colon polyps were also noted but were benign. Staging studies including a CT scan chest abdomen pelvis, MRI of the pelvis, PET scan does confirm a 7 mm nodule in the right lung that is PET negative as well as left supraclavicular lymph node. Adenopathy in the retroperitoneal area on the left pelvis and rectal area as well as the lymph node in the left groin were metabolically active. Per imaging it was a T3 N+ M1. 4. 07/30/2020 left inguinal biopsy positive for metastatic colon adenocarcinoma. 5. FOLFIRINOX x 12 07/2020 through 01/2021 6. 02/22/2021 PET-CT with good response in primary site, complete radiographic response in supraclavicular, mediastinal or retroperitoneal nodes. Pulmonary nodule to 3 mm from 6 mm. 7. 03/02/2021 Maintenance infusional 5 FU March 30, 2021. 8. November 2021 Progressive obstructive symptoms with difficulty and pain with defecation. Intermittent bright red blood per rectum. 9. 12/03/2021 PET imaging redemonstrates the primary rectal mass measuring 3.3 x 2. 2 cm with intense FDG avidity, SUV 23.6. Left periaortic retroperitoneal lymph node with moderate uptake, SUV max 5.1. Aortic caval lymph node SUV 3.5. Left upper cervical and right supraclavicular lymph nodes with mild FDG uptake, decreased from prior. 10. 12/08/2021 flexible sigmoidoscopy perianal exam shows firm, pink tissue protruding from the anal canal contiguous with tumor, extension of disease versus soft tissue swelling. Fungating partially obstructing mass found in the rectum measuring 3 cm in length with oozing present. 11. Discussed possibility of diverting ostomy versus radiation therapy. 12. Met with our radiation oncology colleagues, given response of disease outside the local regional area, who recommended a more definitive course of treatment utilizing IMRT to the rectal tumor and involved lymph nodes in the inguinal/pelvic/periaortic region. Plan for concurrent radiosensitizing Xeloda 13. Concurrent chemo rads, radiosensitizing Xeloda 2021 through 01/27/2022, IMRT to rectal tumor in involved lymph nodes in the inguinal region, pelvis and periaortic chain with integrated boost to regional lymph nodes. 14. Follow up with medical oncology. 04/08/[address] overall, previously radiated disease in the abdominal and pelvic lymph nodes, along with rectal mass have responded as indicated by PET scan results . Disease above the diaphragm, including some lymph nodes as well as increasing lung metastases have shown slight progression. Discussion regarding treatment options with consideration for Mr. Real's wish to be able to fish this winter, and the timing of the holidays, it was agreed that Mr. Real would commence therapy with infusion Flourouracil and leukovorin with preference to avoid significant toxicity and oxaliplatin cold sensitivity. After the first of the year, could proceed with FOLFIRI chemotherapy plus or minus bevacizumab. 15. Cycle 1 Flourouracil + Leucovorin 05/03/22. Presented with left groin and leg pain with associated leg edema. US LLE negative for clot. Referral to Cancer Rehab for lymph edema assessment and treatment. Surgical History Surgical History LN biopsy left groin. Medications Medications Please see medical chart. Contraindications Contraindications Comments Discussed precautions in treating with MLD in situations of known cancer, pt wishes to proceed with treatment as he says it really helps his pain / improves comfort and is hoping to help decrease swelling in his leg. Family History Family History of Lymphedema No Living Situation Current Living Situation Home With Spouse Or SO Patient Difficulties Difficulties With Any Of The Following Walking,Dressing,Reaching Feet & Toes Patient Difficulties Comments See Subjective Exercise History Does Patient Exercise Regularly Yes Exercise Comments Pt does not follow a specific exercise routine but states he is constantly moving as it is too painful for him to sit and he likes to be active. Pain Pain Yes Pain Comments Pain in rectum due to radiation treatments, pain in leg due to lymphedema. Loss of Function/Strength/Mobility Loss Of Function/Strength/Mobility Yes Loss Of Function/Strength/Mobility See subjective Comments Previous Treatment Previous Treatment For Swelling/ Elevation Lymphedema Compression History Does Patient Currently Wear Compression No During Daytime Does Patient Currently Wear Compression No At Night Current Swelling (Location/Pitting/Texture) Pitting Scale: 0 = No pitting 1+ Tissue returns to normal almost immediately 2+ Tissue returns after 15-30 seconds 3+ Tissue returns after 1-1/2 minutes 4+ Tissue returns after 2-3 minutes N/A Tissue no longer pits due to induration Tissue texture: Soft or indurated Clinical Presentation Area Pitting edema (gr 2-3+) LLE thigh, knee, calf, ankle, and foot. Clinical Presentation Texture Firm, thick edema throughout the LLE Type of Swelling Post Surgery/Traumatic Edema Staging Staging Stage 2 Positive Stemmer's Sign Yes Skin Changes Skin Changes Limited Skin Mobility Skin Changes Comments Skin is very dry throughout the LLE. Circumferential Measurements Lower Extremity Left Lower Extremity MPT 24.4 Arch 34.5 Calcaneous 23.5 Ankle 25.5 10cm 33.0 20cm 35.6 30cm 40.2 40cm 43.2 50cm 48.2 60cm 53.4 Total 361.5 Difference 34 Right Lower Extremity MPT 24.0 Arch 32.0 Calcaneous 21.2 Ankle 22.3 10cm 30.5 20cm 31.5 30cm 35.5 40cm 37.5 50cm 44.0 60cm 49.0 Total 327.5 Assessment Assessment Pt is a very pleasant 52yo male presenting to OT with stage 1-2 lymphedema in the LLE as a result of LN biopsy and radiation therapy for metastatic rectal adenocarcinoma. Pt is having pain in the leg as well as in the rectum. Question if patient could actually be experiencing some swelling in the pelvis / trunk which could also be contributing to pressure / pain. Pt states that due to the swelling, he is also having difficulty donning and doffing LE clothing and bending over to get things from the floor. Due to the severity of the lymphedema in his left leg, pt is at high risk for cellulitis. Pt will benefit from skilled OT intervention to address and reduce the swelling as well as to provided pt / caregiver education and training for LT management of his condition and to reduce risk for cellulitis and further lymphedema related complications. Impairments Impairments Loss of Mobility,Difficulties With ADLs,Limb Heaviness,Poor Clothing Fit Impairments Comments Pt demonstrates limited ankle PF and DF as well as difficulty bending his knee, depending on how much swelling he has on the given day. Today, PF/DF are limited to 20 deg, knee flexion is limited to 125 deg. Problem List Problem List Limited Knowledge of Lymphedema Treatment/Condition /Precautions,Limited Knowledge of Skin Care & Infection Precautions,Significant Risk For Infection For Lymphedema Related Complications,Does Not Have a HEP,Does Not Know How To Bandage For Limb Reduction, Does Not Have Appropriate Compression Garments For LT Management Patient Goals Short Term Goals (# of Weeks) 6 Click To Default Short Term Goals Standard Goals Short Term Goals Goal 1: Patient and or caregiver will understand lymphedema precautions to decrease risk of infection and further lymphedema related complications Goal 2: Patient will develop a tolerance for wearing multi-layer, short stretch bandages between treatment sessions to facilitate limb decongestion Goal 3: Patient will experience decreased pitting edema in order to improve tissue health and decrease risk for infection/cellulitis Goal 4: Patient will perform HEP with minimal assistance in order to improve lymphatic flow and venous return Goal 5 : Patient will perform self MLD protocol with minimal assistance to help reduce swelling and improve ROM and mobility Dog Handler Goals (# of Weeks) 10 Click To Default Dog Handler Goals Standard Goals Detention Goals Goal 1: Patient obtain appropriate compression garments for daytime and nighttime wear for continued volume reduction and prevention of recurrence Goal 2: Patient will experience increased ROM and mobility in order to improve safety and independence with transfers and mobility Goal 3: Patient will be independent with donning and doffing of compression garments which will enable regular daily garment wear Goal 4: Patient will achieve a reduction of at least 20cm from total measurements to enable functional improvements such as fitting into standard sized clothing and shoes, return to a prior level of functional mobility, improved balance, and reduced risk of falling. Indicate cm in comments below Goal 5: Patient and/or caregiver will be independent with HEP and lymphedema management to reduce risk for edema relapse and to reduce risk for infection Treatment Plan Treatment Plan Evaluation,Edema Control, Manual Therapy,Therapeutic Exercise,Therapeutic Activities,Self-Care/Home Management,Caregiver Training, Education Expected Frequency 1-2x Week Expected Duration 8-10 Weeks Certification Certification I Certify That: Therapy Services Provided, Therapy Plan Established, Therapy Plan Reviewed Recertification Information Recertification Information Initial Certification Date 05/26/22 Recertification Due Date 08/24/22 Reasons to Continue Skilled Therapy Initiated OT today for lymphedema treatment. Rehabilitation Potential Fair secondary to metastatic disease Continued Plan of Care and Interventions See above Provider Signature Shows Agreement With POC & Medical Necessity Physician Comment/Change Comment or Changes Physician NPI Number #
== END 2022-12-16 23:59 | disposition home or self-care (01) ==
PROVIDERS: Visit Provider Clinical Nurse Specialist
DX: I89.0 Lymphedema, not elsewhere classified (principal); Z51.89 Encounter for other specified aftercare
CPT/HCPCS: 97140; 97166; 97535

== ENCOUNTER 2022-06-21 08:15 | Outpatient (RCR) | payer OTHER, SELFPAY ==
--- NOTE | 2021-12-30 15:16 | ONC.NURNOTE ---
Capecitabine start follow up call; reports no hand or foot redness or pain reports constipation- since Rhys has been taking the imodium with his capecitabine heading to store to pick up man Miralax and has stopped the imodium since yesterday comes in tomorrow am for labs - will check on status of BM's at that time denies mouth sores states capecitabine is going well other than the imodium induced constipation
[2021-12-31] MEDS: HEPARIN 500 UNIT/5 ML SYRINGE IVF (09:50)
[2021-12-31 10:03] LABS: Basophils Absolute Auto 0.03 K/uL (0.00-0.30); Basophils Percent Auto 0.4 % (0.0-3.0); Eosinophils Absolute Auto 0.31 K/uL (0.00-0.50); Eosinophils Percent Auto 4.3 % (0.0-7.0); Hematocrit 44.6 % (37.0-53.0); Hemoglobin* 15.1 gm/dL (13.5-17.5); Immature Granulocytes Abs Auto 0.07 K/uL (0.00-0.30); Lymphocytes Percent Auto 5.8 % (20-44); Mean Corpuscular HGB Conc 34 gm/dL (32-36); Mean Corpuscular Hemoglobin 33 pg (26-34); Mean Corpuscular Volume 96 fL (80-100); Monocytes Percent Auto 11.1 % (0.0-11.0); Neutrophils Percent Auto 77.4 % (42.0-72.0); Platelet Count* 221 K/uL (140-440); RDW Coefficient of Variation % 13.1 % (11.5-15.5); Red Blood Count 4.65 m/uL (4.30-5.90); White Blood Count* 7.23 K/uL (4.50-11.00)
[2021-12-31 10:14] LABS: Chloride* 100 mmol/L (96-114); Potassium* 4.3 mmol/L (3.6-5.1); Sodium* 133 mmol/L (135-149)
[2021-12-31 10:17] LABS: Blood Urea Nitrogen* 9 mg/dL (7-30); Calcium* 8.5 mg/dL (8.4-10.6); Carbon Dioxide* 27 mmol/L (20-32); Creatinine* 0.8 mg/dL (0.5-1.5); Estimated Glomerular Filt Rate 107 ml/min; Glucose* 111 mg/dL (60-115)
[2021-12-31 10:19] LABS: Slide Review Reflex No
[2021-12-31] MEDS: SODIUM CHLORIDE 0.9 % (FLUSH) 10 ML SYRINGE IVF (14:49)
--- NOTE | 2021-12-31 15:48 | ONC.NURNOTE ---
Disability forms faxed.
[2022-01-07 09:57] LABS: Basophils Percent Auto 0.2 % (0.0-3.0); Eosinophils Percent Auto 7.7 % (0.0-7.0); Hematocrit 41.8 % (37.0-53.0); Hemoglobin* 14.2 gm/dL (13.5-17.5); Immature Granulocytes Abs Auto 0.02 K/uL (0.00-0.30); Lymphocytes Percent Auto 5.5 % (20-44); Mean Corpuscular HGB Conc 34 gm/dL (32-36); Mean Corpuscular Hemoglobin 33 pg (26-34); Mean Corpuscular Volume 96 fL (80-100); Monocytes Percent Auto 18.7 % (0.0-11.0); Neutrophils Percent Auto 67.4 % (42.0-72.0); Platelet Count* 129 K/uL (140-440); RDW Coefficient of Variation % 13.2 % (11.5-15.5); Red Blood Count 4.35 m/uL (4.30-5.90); White Blood Count* 4.01 K/uL (4.50-11.00)
[2022-01-07 10:00] LABS: Slide Review Reflex No
[2022-01-07 10:07] LABS: Chloride* 102 mmol/L (96-114); Potassium* 4.1 mmol/L (3.6-5.1); Sodium* 134 mmol/L (135-149)
[2022-01-07 10:09] LABS: Aspartate Amino Transferase* 21 U/L (12-35); Bilirubin Total* 0.3 mg/dL (0.1-1.5); Carbon Dioxide* 27 mmol/L (20-32); Creatinine* 0.8 mg/dL (0.5-1.5); Estimated Glomerular Filt Rate 107 ml/min; Total Protein* 6.6 g/dL (6.0-8.3)
[2022-01-07 10:10] LABS: Alanine Aminotransferase* 13 U/L (4-50); Alkaline Phosphatase* 85 U/L (40-150); Blood Urea Nitrogen* 9 mg/dL (7-30); Calcium* 8.5 mg/dL (8.4-10.6); Glucose* 94 mg/dL (60-115)
[2022-01-14 09:29] VITALS: BP 127/73; PULSE 60; RESP 16; TEMP 36.6; O2SAT 97
[2022-01-14] MEDS: SODIUM CHLORIDE 0.9 % (FLUSH) 10 ML SYRINGE IVF (09:34)
[2022-01-14] MEDS: HEPARIN 500 UNIT/5 ML SYRINGE IVF (09:34)
[2022-01-14 09:51] LABS: Basophils Percent Auto 0.6 % (0.0-3.0); Hematocrit 39.7 % (37.0-53.0); Hemoglobin* 13.8 gm/dL (13.5-17.5); Immature Granulocytes Abs Auto 0.02 K/uL (0.00-0.30); Lymphocytes Percent Auto 2.9 % (20-44); Mean Corpuscular HGB Conc 35 gm/dL (32-36); Mean Corpuscular Hemoglobin 33 pg (26-34); Mean Corpuscular Volume 95 fL (80-100); Monocytes Percent Auto 13.7 % (0.0-11.0); Neutrophils Percent Auto 73.4 % (42.0-72.0); Platelet Count* 155 K/uL (140-440); Red Blood Count 4.16 m/uL (4.30-5.90)
[2022-01-14 09:57] LABS: Slide Review Reflex No; White Blood Count* 5.11 K/uL (4.50-11.00)
[2022-01-14 10:02] LABS: Albumin* 3.8 g/dL (3.3-5.0); Chloride* 100 mmol/L (96-114); Potassium* 4.4 mmol/L (3.6-5.1); Sodium* 131 mmol/L (135-149)
[2022-01-14 10:04] LABS: Bilirubin Total* 0.3 mg/dL (0.1-1.5); Carbon Dioxide* 27 mmol/L (20-32); Creatinine* 0.8 mg/dL (0.5-1.5); Estimated Glomerular Filt Rate 107 ml/min
[2022-01-14 10:05] LABS: Alanine Aminotransferase* 16 U/L (4-50); Alkaline Phosphatase* 82 U/L (40-150); Aspartate Amino Transferase* 26 U/L (12-35); Blood Urea Nitrogen* 9 mg/dL (7-30); Calcium* 8.3 mg/dL (8.4-10.6); Glucose* 120 mg/dL (60-115); Total Protein* 6.4 g/dL (6.0-8.3)
--- NOTE | 2022-01-14 10:53 | ONC.NURNOTE ---
Reviewed labs with patient. Encouraged to add some salt and calcium to diet. Patient is having some diarrhea with chemo meds and radiation to rectum. Imodium is helping with this.
[2022-01-21 08:50] LABS: Basophils Absolute Auto 0.05 K/uL (0.00-0.30); Basophils Percent Auto 0.8 % (0.0-3.0); Hematocrit 41.5 % (37.0-53.0); Hemoglobin* 14.4 gm/dL (13.5-17.5); Immature Granulocytes Abs Auto 0.03 K/uL (0.00-0.30); Lymphocytes Percent Auto 2.1 % (20-44); Mean Corpuscular HGB Conc 35 gm/dL (32-36); Mean Corpuscular Hemoglobin 33 pg (26-34); Mean Corpuscular Volume 95 fL (80-100); Monocytes Percent Auto 13.6 % (0.0-11.0); Platelet Count* 195 K/uL (140-440); RDW Coefficient of Variation % 14.5 % (11.5-15.5); Red Blood Count 4.35 m/uL (4.30-5.90); White Blood Count* 6.26 K/uL (4.50-11.00)
[2022-01-21 08:57] LABS: Slide Review Reflex No
[2022-01-21 09:14] LABS: Albumin* 4.2 g/dL (3.3-5.0); Chloride* 99 mmol/L (96-114); Potassium* 3.9 mmol/L (3.6-5.1); Sodium* 134 mmol/L (135-149)
[2022-01-21 09:16] LABS: Creatinine* 0.8 mg/dL (0.5-1.5); Estimated Glomerular Filt Rate 107 ml/min
[2022-01-21 09:17] LABS: Alanine Aminotransferase* 20 U/L (4-50); Alkaline Phosphatase* 91 U/L (40-150); Aspartate Amino Transferase* 27 U/L (12-35); Bilirubin Total* 0.7 mg/dL (0.1-1.5); Blood Urea Nitrogen* 10 mg/dL (7-30); Carbon Dioxide* 26 mmol/L (20-32); Glucose* 133 mg/dL (60-115); Total Protein* 7.1 g/dL (6.0-8.3)
[2022-01-21 09:18] LABS: Calcium* 8.8 mg/dL (8.4-10.6)
[2022-01-21] MEDS: HEPARIN 500 UNIT/5 ML SYRINGE IVF (09:52)
[2022-01-21] MEDS: SODIUM CHLORIDE 0.9 % (FLUSH) 10 ML SYRINGE IVF (09:52)
[2022-01-22 18:57] LABS: Carcinoembryonic Antigen 4.5 ng/mL (<=3.8)
[2022-01-28 15:57] LABS: Basophils Percent Auto 0.5 % (0.0-3.0); Eosinophils Percent Auto 11.7 % (0.0-7.0); Hematocrit 37.2 % (37.0-53.0); Immature Granulocytes Abs Auto 0.02 K/uL (0.00-0.30); Lymphocytes Percent Auto 2.7 % (20-44); Mean Corpuscular HGB Conc 35 gm/dL (32-36); Mean Corpuscular Hemoglobin 33 pg (26-34); Mean Corpuscular Volume 94 fL (80-100); Monocytes Percent Auto 19.2 % (0.0-11.0); Neutrophils Percent Auto 65.4 % (42.0-72.0); Platelet Count* 170 K/uL (140-440); RDW Coefficient of Variation % 15.2 % (11.5-15.5); Red Blood Count 3.94 m/uL (4.30-5.90); White Blood Count* 4.11 K/uL (4.50-11.00)
[2022-01-28 15:58] LABS: Chloride* 101 mmol/L (96-114); Potassium* 3.8 mmol/L (3.6-5.1); Sodium* 136 mmol/L (135-149)
[2022-01-28 16:01] LABS: Blood Urea Nitrogen* 9 mg/dL (7-30); Carbon Dioxide* 27 mmol/L (20-32); Creatinine* 0.8 mg/dL (0.5-1.5); Estimated Glomerular Filt Rate 107 ml/min; Glucose* 140 mg/dL (60-115)
[2022-01-28 16:02] LABS: Calcium* 8.8 mg/dL (8.4-10.6)
[2022-01-28 16:05] LABS: Slide Review Reflex No
--- NOTE | 2022-04-20 15:02 | URNOTE ---
Request received for Granisetron ([id number]), Fluorouracil ([id number], Leucovorin ([id number]). Prior authorization is not required per [facility] Drug Authorization list.
--- NOTE | 2022-04-30 10:06 | ONC.NURNOTE ---
Patient called in with noted swelling left leg started yesterday with just foot/ankle swelling, awakes today with swelling up the leg it is not red, but uncomfortable justowriter operator recommended- either a provider appt for an US to rule out a DVT or go to the ER for evaluation stressed that he needs to address the swelling today-
[2022-04-30 13:38] LABS: Basophils Absolute Auto 0.02 K/uL (0.00-0.30); Basophils Percent Auto 0.2 % (0.0-3.0); Eosinophils Absolute Auto 0.36 K/uL (0.00-0.50); Eosinophils Percent Auto 4.3 % (0.0-7.0); Hematocrit 39.3 % (37.0-53.0); Hemoglobin* 13.5 gm/dL (13.5-17.5); Immature Granulocytes Abs Auto 0.05 K/uL (0.00-0.30); Immature Granulocytes Pct Auto 0.6 %; Lymphocytes Percent Auto 5.8 % (20-44); Mean Corpuscular HGB Conc 34 gm/dL (32-36); Mean Corpuscular Hemoglobin 32 pg (26-34); Mean Corpuscular Volume 94 fL (80-100); Monocytes Percent Auto 12.1 % (0.0-11.0); Platelet Count* 234 K/uL (140-440); RDW Coefficient of Variation % 11.6 % (11.5-15.5); Red Blood Count 4.17 m/uL (4.30-5.90); White Blood Count* 8.34 K/uL (4.50-11.00)
[2022-04-30 13:47] LABS: Slide Review Reflex No
[2022-04-30 13:48] LABS: Albumin* 3.7 g/dL (3.3-5.0)
[2022-04-30 13:49] LABS: Chloride* 101 mmol/L (96-114); Potassium* 4.7 mmol/L (3.6-5.1); Sodium* 130 mmol/L (135-149)
[2022-04-30 13:51] LABS: Bilirubin Total* 0.5 mg/dL (0.1-1.5); Creatinine* 0.8 mg/dL (0.5-1.5); Estimated Glomerular Filt Rate 106 ml/min
[2022-04-30 13:52] LABS: Alanine Aminotransferase* 18 U/L (4-50); Alkaline Phosphatase* 120 U/L (40-150); Aspartate Amino Transferase* 26 U/L (12-35); Blood Urea Nitrogen* 12 mg/dL (7-30); Calcium* 8.6 mg/dL (8.4-10.6); Carbon Dioxide* 24 mmol/L (20-32); Glucose* 77 mg/dL (60-115); Total Protein* 6.5 g/dL (6.0-8.3)
--- NOTE | 2022-04-30 14:31 | ONC.NURNOTE ---
Patient with low sodium-called and instructed him to use the salt shaker and eat salty foods. He states he will eat lots of salty food including tamazight fries today.
[2022-05-03 08:30] VITALS: BP 145/87; PULSE 83; RESP 16; TEMP 36.7; O2SAT 96
[2022-05-03] MEDS: GRANISETRON 1 MG/ML inj IVP (11:01)
[2022-05-04 19:58] LABS: Carcinoembryonic Antigen 3.5 ng/mL (<=3.8)
[2022-05-05 09:10] VITALS: BP 142/81; PULSE 83; RESP 18; TEMP 36.6; O2SAT 97
[2022-05-17 08:11] VITALS: BP 127/76; PULSE 94; RESP 16; TEMP 36.9; O2SAT 94
[2022-05-17 08:33] LABS: Basophils Absolute Auto 0.03 K/uL (0.00-0.30); Basophils Percent Auto 0.4 % (0.0-3.0); Eosinophils Absolute Auto 0.26 K/uL (0.00-0.50); Eosinophils Percent Auto 3.8 % (0.0-7.0); Hematocrit 40.8 % (37.0-53.0); Hemoglobin* 13.6 gm/dL (13.5-17.5); Immature Granulocytes Abs Auto 0.01 K/uL (0.00-0.30); Immature Granulocytes Pct Auto 0.1 %; Lymphocytes Percent Auto 4.8 % (20-44); Mean Corpuscular HGB Conc 33 gm/dL (32-36); Mean Corpuscular Hemoglobin 31 pg (26-34); Mean Corpuscular Volume 94 fL (80-100); Monocytes Percent Auto 12.9 % (0.0-11.0); Platelet Count* 255 K/uL (140-440); RDW Coefficient of Variation % 12.3 % (11.5-15.5); Red Blood Count 4.35 m/uL (4.30-5.90); White Blood Count* 6.84 K/uL (4.50-11.00)
[2022-05-17 08:39] LABS: Slide Review Reflex No
[2022-05-17 08:58] LABS: Albumin* 3.8 g/dL (3.3-5.0); Chloride* 104 mmol/L (96-114); Sodium* 136 mmol/L (135-149)
[2022-05-17 08:59] LABS: Potassium* 4.4 mmol/L (3.6-5.1)
[2022-05-17 09:01] LABS: Alanine Aminotransferase* 21 U/L (4-50); Alkaline Phosphatase* 129 U/L (40-150); Aspartate Amino Transferase* 32 U/L (12-35); Bilirubin Total* 0.5 mg/dL (0.1-1.5); Blood Urea Nitrogen* 8 mg/dL (7-30); Calcium* 8.8 mg/dL (8.4-10.6); Carbon Dioxide* 28 mmol/L (20-32); Creatinine* 0.8 mg/dL (0.5-1.5); Estimated Glomerular Filt Rate 106 ml/min; Glucose* 101 mg/dL (60-115); Total Protein* 6.7 g/dL (6.0-8.3)
[2022-05-17] MEDS: GRANISETRON 1 MG/ML inj IVP (10:01)
[2022-05-17] MEDS: 5 % DEXTROSE 250 ML IV (11:52)
[2022-05-19 09:22] VITALS: BP 123/77; PULSE 76; RESP 16; TEMP 36.2; O2SAT 98
[2022-05-19] MEDS: HEPARIN 500 UNIT/5 ML SYRINGE IVF (09:22)
[2022-05-19] MEDS: SODIUM CHLORIDE 0.9 % (FLUSH) 10 ML SYRINGE IVF (09:22)
--- NOTE | 2022-05-27 15:22 | PC.NURSE ---
Addendum entered and electronically signed by Alaina Patel APRN 05/27/22 17:39: Called Mr. Real back. Per recommendation by Dana Nazario from [facility] and discussion with Mr. Real, will wait for a week or two to see if his leg improves with wraps and treatment before ordering compression socks with hope that his left leg size will decrease before he purchases them. Original Note: Pt called this afternoon to inquire about a compression stocking order and Percocet refill. Pt states he is taking 3-5 tablets per day with pain relief. Discussed pt's questions with Alaina Sauceda APRN who will contact Rhys directly to discuss further.
--- NOTE | 2022-06-04 15:40 | URNOTE ---
Received request for prior authorization for Avastin ([id number]), Palonosetron, ([id number]), and Irinotecan ([id number]). Palonosetron and IRinotecan do not require prior authorization per [facility] drug authorization list. Avastin does require prior authorization and is pending at this time.
[2022-06-07 08:13] LABS: Basophils Absolute Auto 0.04 K/uL (0.00-0.30); Basophils Percent Auto 0.7 % (0.0-3.0); Eosinophils Absolute Auto 0.29 K/uL (0.00-0.50); Hematocrit 40.9 % (37.0-53.0); Hemoglobin* 13.9 gm/dL (13.5-17.5); Immature Granulocytes Abs Auto 0.01 K/uL (0.00-0.30); Immature Granulocytes Pct Auto 0.2 %; Mean Corpuscular HGB Conc 34 gm/dL (32-36); Mean Corpuscular Hemoglobin 32 pg (26-34); Mean Corpuscular Volume 93 fL (80-100); Monocytes Percent Auto 17.1 % (0.0-11.0); Neutrophils Absolute Auto 4.09 K/uL (1.7-7.0); Platelet Count* 296 K/uL (140-440); RDW Coefficient of Variation % 13.9 % (11.5-15.5); Red Blood Count 4.41 m/uL (4.30-5.90); White Blood Count* 5.84 K/uL (4.50-11.00)
[2022-06-07 08:15] LABS: Slide Review Reflex No
[2022-06-07 08:29] LABS: Albumin* 4.2 g/dL (3.3-5.0); Chloride* 103 mmol/L (96-114); Sodium* 136 mmol/L (135-149)
[2022-06-07 08:30] LABS: Potassium* 4.4 mmol/L (3.6-5.1)
[2022-06-07 08:32] LABS: Alkaline Phosphatase* 136 U/L (40-150); Aspartate Amino Transferase* 33 U/L (12-35); Bilirubin Total* 0.7 mg/dL (0.1-1.5); Blood Urea Nitrogen* 13 mg/dL (7-30); Carbon Dioxide* 28 mmol/L (20-32); Creatinine* 0.9 mg/dL (0.5-1.5); Estimated Glomerular Filt Rate 103 ml/min; Total Protein* 7.2 g/dL (6.0-8.3)
[2022-06-07 08:33] LABS: Alanine Aminotransferase* 24 U/L (4-50); Calcium* 9.1 mg/dL (8.4-10.6); Glucose* 102 mg/dL (60-115)
--- NOTE | 2022-06-07 10:14 | URNOTE ---
Received request for prior authorization for Emend (Aprepitant) ([id number]), Avastin ([id number]). Emend does not require prior authorization per [facility]'s Medical injectable drug authorization list. Avastin does require prior authorization and is pending at this time.
[2022-06-07] MEDS: dexAMETHasone 20 MG in 0.9 % SODIUM CHLORIDE 100 ml 100 ML 408 MG IVPB (10:18)
[2022-06-07] MEDS: PALONOSETRON 0.25 MG/5 ML inj IV (10:18)
[2022-06-07] MEDS: CADD MED CASSETTE RESERVOIR IV (12:32)
[2022-06-07] MEDS: FLUOROURACIL IV (12:32)
--- NOTE | 2022-06-07 14:29 | URNOTE ---
Request received for Avastin ([id number]) was denied. Changed to Mvasi ([id number]) biosimilar medication. Called [facility] Rep. Culp Mvasi ([id number]) does not require PA, call ref# [id number].
--- NOTE | 2022-06-08 15:42 | PC.NURSE ---
pt called to inquire about his Mvasi approval and infusion plans for tomorrow. RN reviewed chart and spoke with pharmacy. The drug was approved with his insurance and pharmacy has the drug. Pt will receive Mvasi tomorrow, 06/09/2022 after his 5fU pump is removed. Pt agrees with this plan.
[2022-06-09 10:52] VITALS: BP 125/85; PULSE 72; RESP 16; TEMP 36.2; O2SAT 94
[2022-06-09] MEDS: HEPARIN 500 UNIT/5 ML SYRINGE IVF (11:12)
[2022-06-09] MEDS: SODIUM CHLORIDE 0.9 % (FLUSH) 10 ML SYRINGE IVF (11:12)
--- NOTE | 2022-06-09 11:16 | PC.NURSE ---
Addendum entered and electronically signed by Alaina Patel APRN 06/09/22 12:25: Mr. Real confirms he is passing flatus and denies nausea today. He was recommended to take prochlorperazine first for mild nausea, instead of ondansetron, today until he is able to better regulate his bowels, as it may contribute to his current constipation. Should he develop more severe pain, significant nausea with vomiting and continue with constipation, he should present to the ED for further evaluation. Original Note: Pt presents to [facility] today for 5FU pump removal. Pt is scheduled to get Mvasi (Avastin biosimilar), however he is not feeling well this morning so would like to defer starting Avastin until his next treatment on 06/21/2022. Pt shares that she is having significant abdominal cramping, fatigue, and metallic taste in his mouth. Pt has not had a BM since Tuesday or Tuesday as he held stool softeners in anticipation of getting diarrhea from chemo. Rhys is drinking Pedialyte and staying hydrated. Discussed case with Alaina Patel APRN who supports pt's desire to defer. BRITTANY Foley will decrease pt's Atropine dose with the next chemo (with option to repeat x 1 during treatment if issues arise) to see if this constipation improves. Pt agrees with this plan. Port flushed per protocol and deaccessed.
--- NOTE | 2022-06-24 11:21 | ONC.NURNOTE ---
Patient called office stating that he will run out of pain medications by Tuesday. He is currently taking 3-4 daily for abdominal and left leg pain. Last filled 06/17/2022, [facility] notes only [facility] COMMERCIAL SERVICE TECHNICIAN filling since 2021. Will request COMMERCIAL SERVICE TECHNICIAN to fill again.
== END 2022-06-29 23:59 | disposition home or self-care (01) ==
LOC: CCIC 08:15
PROVIDERS: Internal Medicine Hematology & Oncology; Internal Medicine Medical Oncology; Visit Provider Clinical Nurse Specialist
DX: C20 Malignant neoplasm of rectum (principal); C77.2 Secondary and unspecified malignant neoplasm of intra-abdominal lymph nodes; R91.8 Other nonspecific abnormal finding of lung field; G89.3 Neoplasm related pain (acute) (chronic); I89.0 Lymphedema, not elsewhere classified
CPT/HCPCS: 36415; 36591; 80048; 80053; 82378; 85025; 93971; 96365; 96366; 96368; 96376; 96413; 96415; 96416; 99211; 99212; 99213; 99214; 99215; J0461; J0640; J1100; J1626; J1642; J2469; J7050; J7120; J9190; J9206

== ENCOUNTER 2022-08-12 13:56 | Outpatient (CLI) | payer OTHER, SELFPAY ==
--- NOTE | 2022-08-12 14:00 | CRLHL7_ITS ---
For Patients: As a result of the Century Cures Act, medical imaging exams and procedure reports are released immediately into your electronic medical record. You may view this report before your referring provider. If you have questions, please contact your health care provider. INDICATION: Metastatic rectal cancer TECHNIQUE: Following IV injection of FDG with uptake of 59 minutes, noncontrast CT scan followed by a PET scan were acquired along the length of body from the head to the upper thighs. Noncontrast CT was used for anatomic localization and photon attenuation correction of the PET-CT scan. - Blood glucose level: 92. - FDG dose (mCi): 11.85. COMPARISON: 04/08/2022 PET-CT. FINDINGS: Head/Neck: Decreased size and uptake of tracer avid supraclavicular lymph nodes. Left supraclavicular lymph node SUV max of 5.1 previously 8.3. Right supraclavicular lymph node SUV max of 3.6 previously 8.3. Right mandibular periodontal uptake is likely due to periodontal disease. - Chest: Bilateral pulmonary nodules are stable in size with decreased tracer uptake. Largest in the right lower lobe measures 0.9 cm, unchanged in size with SUV max of 1.0 previously 2.5. - Background liver parenchyma with SUV mean of 2.0. Rectal lesion with SUV max of 8.0 previously 9.5 measuring 3.2 x 2.4 cm previously 3.0 x 2.3 cm. No tracer avid abdominal or pelvic lymph nodes. - Musculoskeletal: No tracer avid bone lesion. - CT findings: Chest port tip at the cavoatrial junction. Pulmonary nodules as above. Supraclavicular lymph nodes as above. No pleural effusion or pneumothorax. Atherosclerotic abdominal aorta. Diffuse bladder wall thickening is similar prior. Rectal lesion as above. Presacral edema is similar to prior. Bilateral maxillary sinus and ethmoid sinus mucosal thickening is again noted. Degenerative changes in the spine. IMPRESSION : 1. Stable sizes decreased uptake of multiple pulmonary nodules. 2. Supraclavicular lymph nodes with decreased uptake compared to prior. 3. Rectal mass with decreased uptake compared to prior. 4. No new sites of abnormal tracer uptake. Dictated by Michele Ron MD @ 08/13/2022 2:20:40 PM (Electronically Signed)
== END 2022-08-12 13:57 | disposition home or self-care (01) ==
LOC: RAD 13:56
PROVIDERS: Visit Provider Physician Assistant
DX: C20 Malignant neoplasm of rectum (principal); C77.2 Secondary and unspecified malignant neoplasm of intra-abdominal lymph nodes; R91.1 Solitary pulmonary nodule
CPT/HCPCS: 78815; A9552

== ENCOUNTER 2022-11-18 15:24 | Outpatient (CLI) | payer OTHER, SELFPAY ==
--- NOTE | 2022-11-18 15:30 | CRLHL7_ITS ---
For Patients: As a result of the 21st Century Cures Act, medical imaging exams and procedure reports are released immediately into your electronic medical record. You may view this report before your referring provider. If you have questions, please contact your health care provider. EXAM: PET-CT SKULL BASE TO THIGH CLINICAL INFORMATION: 52-yo male with metastatic rectal cancer. Prior radiation. Chemotherapy. Patient is referred for further characterization. TECHNIQUE: Radiopharmaceutical: 12.16 mCi of 18F-FDG Intravenous injection site: RAC Uptake time: 52 minutes Blood glucose level at the time of injection: 100 mg/dL Field of view: Skull base to mid-thighs CT protocol: The low-dose, free-breathing, noncontrast CT performed as part of this study is designed for the purposes of attenuation correction and lesion localization, and it is neither sufficient, nor it should be substituted for diagnostic purposes. COMPARISON: PET-CT 08/12/2022. And 04/08/2022 FINDINGS: Physiologic background liver standardized uptake value (SUV mean and SUV max) reported for comparison between PET studies: 1.8 and 2.2. Visualized head and neck: Physiologic uptake in the visualized portions of the brain and salivary glands. Mild scattered inflammatory changes in the paranasal sinuses. Small lucencies with uptake in the midline anterior mandible and bilateral anterior maxilla considered suspicious for periodontal disease or periapical abscesses (fused images 39 and 31 ). Head and neck lymph nodes: No new upper cervical chain lymph nodes. Decreased size and uptake of bilateral low neck/medial supraclavicular lymph nodes. For example: -medial left supraclavicular lymph node, 0.5 cm short axis, SUV max 2.0 (fused image 64). Previously 5.1. -medial right supraclavicular lymph node, 0.4 cm short axis, SUV max 2.8 (fused image 62). Previously 3.6 Lungs: No new hypermetabolic pulmonary nodules or abnormal uptake. Similar bilateral pulmonary nodules with low level uptake. Several nodules appear slightly smaller overall. For example: -posterior right lower lobe nodule, 0.5 cm, SUV max 0.6 (fused image 133). Previously 0.7 cm, SUV max 0.7. -lateral left lower lobe nodule, 0.5 cm, SUV max 0.5 (fused image 104). Previously 0.6 cm, SUV max 0.6. -lateral right middle lobe perifissural nodule, 0.4 cm, SUV max 0.4 (fused image 110). Previously 0.5 cm, SUV max 0.5 Thoracic lymph nodes: No new hypermetabolic mediastinal, hilar or axillary lymph nodes. Other chest findings: Left chest port with central catheter tip positioned in the lower SVC. Mild bilateral gynecomastia. Liver/spleen/pancreas/adrenal glands: No abnormal uptake. Kidneys and bladder: No abnormal uptake or obstruction. Limited bladder distention with generalized wall thickening. Bowel and peritoneum: No suspicious gastric or small bowel uptake. No suspicious proximal colon uptake. Moderate retained stool. Areas of uptake in the sigmoid colon demonstrate no obvious noncontrast CT abnormality. -Persistent asymmetric uptake within the left lateral and posterior wall of the lower rectum/anal canal would be most consistent with viable rectal malignancy, difficult to measure, SUV max 9.5 (fused image 260). Previously 9.5. New development of a mixed attenuation soft tissue collection with peripheral uptake containing fluid, internal debris and air densities involving the left-sided perirectal soft tissues with extension and involvement of the left ischiorectal fossa and posteromedial left-sided gluteal soft tissues, 7.1 x 4.5 x 5.3 cm, SUV max 10.4. There is direct communication with the anal canal. Pelvic organs: Residual presacral and posterior pelvic fat stranding. Abdominopelvic lymph nodes: No new hypermetabolic abdominopelvic lymph nodes. Musculoskeletal, soft tissues, skin: No suspicious osseous lesions or abnormal uptake. Degenerative type uptake within the spine. Other: Edema within the depended flank soft tissues and proximal lower extremities more prominent in the left thigh. Scattered aortoiliac atherosclerotic vascular calcifications. IMPRESSION: 1. Persistent moderately intense uptake within a rectal mass is most consistent with viable malignancy. 2. New development of a mixed attenuation fluid collection/abscess involving the left posterolateral perirectal soft tissues, left ischiorectal fossa and posterior medial left gluteal soft tissues. There is direct connection with the lower anal canal. Attention on exam. 3. Similar distribution of bilateral pulmonary nodules with slightly decreased size and persistent low level uptake within several of the larger nodules in the lower lobes. No new hypermetabolic lung nodules or progressive mediastinal lymphadenopathy . 4. Decreased size and uptake of small bilateral low neck/medial supraclavicular lymph nodes. 5. No abnormal solid organ uptake in the upper abdomen or progressive metabolically active abdominopelvic lymph nodes. 6. Limited bladder distention with diffuse generalized wall thickening. 7. Other nonacute findings as detailed in the body of the report. NOTE: [facility] offices were contacted by teleradiology staff with no answering service available. Voicemail message left and report faxed at [phone] hrs on 11/20/22. The patient has a follow-up appt on 11/22/22. Dictated by Valeriy Head MD @ 11/20/2022 2:39:03 PM (Electronically Signed)
== END 2022-11-18 15:25 | disposition home or self-care (01) ==
LOC: RAD 15:25
PROVIDERS: Visit Provider Internal Medicine Hematology & Oncology
DX: C20 Malignant neoplasm of rectum (principal)
CPT/HCPCS: 78815; A9552

== ENCOUNTER 2022-12-28 09:30 | Outpatient (RCR) | payer OTHER, SELFPAY ==
[2022-07-05 08:35] LABS: Basophils Absolute Auto 0.03 K/uL (0.00-0.30); Basophils Percent Auto 0.4 % (0.0-3.0); Eosinophils Absolute Auto 0.38 K/uL (0.00-0.50); Eosinophils Percent Auto 4.8 % (0.0-7.0); Hematocrit 37.8 % (37.0-53.0); Hemoglobin* 12.5 gm/dL (13.5-17.5); Immature Granulocytes Abs Auto 0.02 K/uL (0.00-0.30); Immature Granulocytes Pct Auto 0.3 %; Lymphocytes Percent Auto 5.9 % (20-44); Mean Corpuscular HGB Conc 33 gm/dL (32-36); Mean Corpuscular Hemoglobin 31 pg (26-34); Mean Corpuscular Volume 94 fL (80-100); Monocytes Percent Auto 10.5 % (0.0-11.0); Neutrophils Percent Auto 78.1 % (42.0-72.0); Platelet Count* 248 K/uL (140-440); RDW Coefficient of Variation % 15.4 % (11.5-15.5); Red Blood Count 4.01 m/uL (4.30-5.90); White Blood Count* 7.84 K/uL (4.50-11.00)
[2022-07-05 08:38] LABS: Slide Review Reflex No
[2022-07-05 08:45] VITALS: BP 1124/78; PULSE 67; RESP 14; TEMP 36.5; O2SAT 98
[2022-07-05 08:51] LABS: Albumin* 3.8 g/dL (3.3-5.0); Chloride* 104 mmol/L (96-114)
[2022-07-05 08:52] LABS: Potassium* 4.2 mmol/L (3.6-5.1); Sodium* 133 mmol/L (135-149)
[2022-07-05 08:54] LABS: Alkaline Phosphatase* 111 U/L (40-150); Aspartate Amino Transferase* 26 U/L (12-35); Bilirubin Total* 0.5 mg/dL (0.1-1.5); Blood Urea Nitrogen* 8 mg/dL (7-30); Carbon Dioxide* 30 mmol/L (20-32); Creatinine* 0.8 mg/dL (0.5-1.5); Estimated Glomerular Filt Rate 106 ml/min; Total Protein* 6.6 g/dL (6.0-8.3)
[2022-07-05 08:55] LABS: Alanine Aminotransferase* 23 U/L (4-50); Calcium* 8.6 mg/dL (8.4-10.6); Glucose* 100 mg/dL (60-115)
[2022-07-05 09:56] LABS: Appearance Urine Clear (Clear); Bilirubin Urine Negative (Negative); Blood Urine Negative (Negative); Color Urine Yellow (Yellow); Glucose Urine Negative (Negative); Ketones Urine Negative (Negative); Leukocyte Esterase Urine Negative (Negative); Nitrite Urine Negative (Negative); Protein Urine Negative (Negative); Urobilinogen Urine 0.2 (0.2-1.0)
[2022-07-05] MEDS: dexAMETHasone 20 MG in 0.9 % SODIUM CHLORIDE 100 ml 100 ML 408 MG IVPB (12:24)
[2022-07-05] MEDS: PALONOSETRON 0.25 MG/5 ML inj IV (12:24)
[2022-07-05] MEDS: ATROPINE 1 MG/10 ML SYRINGE 0.25 MG IVP (12:57)
[2022-07-05] MEDS: FLUOROURACIL IV (14:43)
[2022-07-05] MEDS: CADD MED CASSETTE RESERVOIR IV (14:43)
--- NOTE | 2022-07-05 15:50 | ONC.NURNOTE ---
Ian new chemo well. Alaina Pennington APRN called in refill for Percocet.
[2022-07-07 13:09] VITALS: BP 111/73; PULSE 100; RESP 16; TEMP 36.9; O2SAT 98
--- NOTE | 2022-07-13 12:37 | ONC.NURNOTE ---
Patient called this morning, stating that he has only 7 percocet remaining for pain management of his abdomen and leg. This is ongoing pain management, and he is continuing to take 3-4 tabs daily. Discussed with BRITTANY, she will put new order for medication into his pharmacy.
[2022-07-19 08:21] LABS: Basophils Absolute Auto 0.03 K/uL (0.00-0.30); Basophils Percent Auto 0.6 % (0.0-3.0); Eosinophils Percent Auto 3.9 % (0.0-7.0); Hematocrit 37.7 % (37.0-53.0); Hemoglobin* 12.5 gm/dL (13.5-17.5); Immature Granulocytes Abs Auto 0.01 K/uL (0.00-0.30); Immature Granulocytes Pct Auto 0.2 %; Lymphocytes Percent Auto 8.8 % (20-44); Mean Corpuscular HGB Conc 33 gm/dL (32-36); Mean Corpuscular Hemoglobin 31 pg (26-34); Mean Corpuscular Volume 95 fL (80-100); Monocytes Percent Auto 10.6 % (0.0-11.0); Neutrophils Percent Auto 75.9 % (42.0-72.0); Platelet Count* 234 K/uL (140-440); RDW Coefficient of Variation % 15.5 % (11.5-15.5); Red Blood Count 3.99 m/uL (4.30-5.90); White Blood Count* 5.09 K/uL (4.50-11.00)
[2022-07-19 08:28] LABS: Slide Review Reflex No
[2022-07-19 08:32] LABS: Chloride* 103 mmol/L (96-114); Potassium* 3.8 mmol/L (3.6-5.1); Sodium* 134 mmol/L (135-149)
[2022-07-19 08:34] LABS: Creatinine* 0.9 mg/dL (0.5-1.5); Estimated Glomerular Filt Rate 103 ml/min
[2022-07-19 08:35] LABS: Alanine Aminotransferase* 25 U/L (4-50); Alkaline Phosphatase* 112 U/L (40-150); Aspartate Amino Transferase* 34 U/L (12-35); Bilirubin Total* 0.5 mg/dL (0.1-1.5); Blood Urea Nitrogen* 7 mg/dL (7-30); Calcium* 8.8 mg/dL (8.4-10.6); Carbon Dioxide* 25 mmol/L (20-32); Glucose* 120 mg/dL (60-115); Total Protein* 6.9 g/dL (6.0-8.3)
[2022-07-19 09:50] LABS: Appearance Urine Clear (Clear); Bilirubin Urine Negative (Negative); Blood Urine Negative (Negative); Color Urine Yellow (Yellow); Glucose Urine Negative (Negative); Ketones Urine Negative (Negative); Leukocyte Esterase Urine Negative (Negative); Nitrite Urine Negative (Negative); Protein Urine Negative (Negative); Specific Gravity Urine 1.015 (1.000-1.030); Urobilinogen Urine 0.2 (0.2-1.0)
[2022-07-19] MEDS: PALONOSETRON 0.25 MG/5 ML inj IV (11:25)
[2022-07-19] MEDS: dexAMETHasone 20 MG in 0.9 % SODIUM CHLORIDE 100 ml 100 ML 408 MG IVPB (11:26)
[2022-07-19] MEDS: ATROPINE 1 MG/10 ML SYRINGE 0.25 MG IVP (12:07)
[2022-07-19] MEDS: FLUOROURACIL IV (13:56)
[2022-07-19] MEDS: CADD MED CASSETTE RESERVOIR IV (13:56)
--- NOTE | 2022-07-29 15:21 | PC.NURSE ---
Pt called asking for a refill on his Percocet. Pt is taking ~3-5 tablets per day and has 3 left. RN advised pt to use sparingly and a message was directed to the prescribing provider to ask for the refill. Support offered.
[2022-08-02 08:39] LABS: Basophils Absolute Auto 0.02 K/uL (0.00-0.30); Basophils Percent Auto 0.4 % (0.0-3.0); Eosinophils Absolute Auto 0.16 K/uL (0.00-0.50); Eosinophils Percent Auto 3.4 % (0.0-7.0); Hemoglobin* 13.3 gm/dL (13.5-17.5); Immature Granulocytes Abs Auto 0.01 K/uL (0.00-0.30); Immature Granulocytes Pct Auto 0.2 %; Lymphocytes Percent Auto 8.4 % (20-44); Mean Corpuscular HGB Conc 33 gm/dL (32-36); Mean Corpuscular Hemoglobin 32 pg (26-34); Mean Corpuscular Volume 95 fL (80-100); Monocytes Percent Auto 16.1 % (0.0-11.0); Neutrophils Absolute Auto 3.41 K/uL (1.7-7.0); Neutrophils Percent Auto 71.5 % (42.0-72.0); Platelet Count* 281 K/uL (140-440); RDW Coefficient of Variation % 15.7 % (11.5-15.5); Red Blood Count 4.21 m/uL (4.30-5.90); Slide Review Reflex No; White Blood Count* 4.77 K/uL (4.50-11.00)
[2022-08-02 08:45] VITALS: BP 110/73; PULSE 70; RESP 16; TEMP 36.9; O2SAT 96
[2022-08-02 08:51] LABS: Albumin* 4.1 g/dL (3.3-5.0); Chloride* 102 mmol/L (96-114); Potassium* 4.6 mmol/L (3.6-5.1); Sodium* 134 mmol/L (135-149)
[2022-08-02 08:53] LABS: Bilirubin Total* 0.7 mg/dL (0.1-1.5); Creatinine* 0.9 mg/dL (0.5-1.5); Estimated Glomerular Filt Rate 103 ml/min
[2022-08-02 08:54] LABS: Alanine Aminotransferase* 28 U/L (4-50); Alkaline Phosphatase* 151 U/L (40-150); Aspartate Amino Transferase* 29 U/L (12-35); Blood Urea Nitrogen* 8 mg/dL (7-30); Calcium* 9.2 mg/dL (8.4-10.6); Carbon Dioxide* 27 mmol/L (20-32); Glucose* 108 mg/dL (60-115); Total Protein* 7.3 g/dL (6.0-8.3)
[2022-08-02 09:38] LABS: Appearance Urine Clear (Clear); Bilirubin Urine Negative (Negative); Blood Urine Negative (Negative); Color Urine Yellow (Yellow); Glucose Urine Negative (Negative); Ketones Urine Negative (Negative); Leukocyte Esterase Urine Negative (Negative); Nitrite Urine Negative (Negative); Protein Urine Negative (Negative); Urobilinogen Urine 0.2 (0.2-1.0)
[2022-08-02] MEDS: PALONOSETRON 0.25 MG/5 ML inj IV (11:15)
[2022-08-02] MEDS: dexAMETHasone 20 MG in 0.9 % SODIUM CHLORIDE 100 ml 100 ML 408 MG IVPB (11:15)
[2022-08-02] MEDS: ATROPINE 1 MG/10 ML SYRINGE 0.25 MG IVP (11:37)
[2022-08-02] MEDS: CADD MED CASSETTE RESERVOIR IV (13:22)
[2022-08-02] MEDS: FLUOROURACIL IV (13:22)
[2022-08-04 11:49] VITALS: BP 115/73; PULSE 98; RESP 16; TEMP 36.8; O2SAT 98
--- NOTE | 2022-08-13 14:25 | ONC.NURNOTE ---
Patient called stating that he only had #10 pills left for pain management. He is now taking about 5 pills daily, so this current supply will get him through mid day on Tuesday. CORONER/MEDICAL EXAMINER was contacted and she refilled medication after discussion that patient has increased the amount he is taking. Patient had PET scan done on and this will be discussed with Dr. Santos on Tuesday at appointment. He was told that it is important that pain management be discussed at this appointment. Patient understanding.
[2022-08-16 09:11] LABS: Basophils Absolute Auto 0.02 K/uL (0.00-0.30); Basophils Percent Auto 0.4 % (0.0-3.0); Eosinophils Absolute Auto 0.15 K/uL (0.00-0.50); Eosinophils Percent Auto 2.9 % (0.0-7.0); Hematocrit 37.1 % (37.0-53.0); Hemoglobin* 12.4 gm/dL (13.5-17.5); Immature Granulocytes Abs Auto 0.01 K/uL (0.00-0.30); Immature Granulocytes Pct Auto 0.2 %; Lymphocytes Percent Auto 7.1 % (20-44); Mean Corpuscular HGB Conc 33 gm/dL (32-36); Mean Corpuscular Hemoglobin 32 pg (26-34); Mean Corpuscular Volume 96 fL (80-100); Monocytes Percent Auto 13.1 % (0.0-11.0); Neutrophils Percent Auto 76.3 % (42.0-72.0); Platelet Count* 237 K/uL (140-440); RDW Coefficient of Variation % 15.2 % (11.5-15.5); Red Blood Count 3.86 m/uL (4.30-5.90)
[2022-08-16 09:25] LABS: Chloride* 101 mmol/L (96-114); Potassium* 4.1 mmol/L (3.6-5.1); Sodium* 134 mmol/L (135-149)
[2022-08-16 09:27] LABS: Slide Review Reflex No
[2022-08-16 09:28] LABS: Alanine Aminotransferase* 38 U/L (4-50); Alkaline Phosphatase* 149 U/L (40-150); Aspartate Amino Transferase* 50 U/L (12-35); Bilirubin Total* 0.5 mg/dL (0.1-1.5); Blood Urea Nitrogen* 12 mg/dL (7-30); Carbon Dioxide* 26 mmol/L (20-32); Estimated Glomerular Filt Rate 91 ml/min; Glucose* 108 mg/dL (60-115); Total Protein* 6.9 g/dL (6.0-8.3)
[2022-08-16 09:29] LABS: Calcium* 8.8 mg/dL (8.4-10.6)
[2022-08-16 10:51] LABS: Magnesium* 2.1 mg/dL (1.5-2.6)
[2022-08-16] MEDS: dexAMETHasone 20 MG in 0.9 % SODIUM CHLORIDE 100 ml 100 ML 408 MG IVPB (11:12)
[2022-08-16] MEDS: PALONOSETRON 0.25 MG/5 ML inj IV (11:12)
[2022-08-16] MEDS: ATROPINE 1 MG/10 ML SYRINGE 0.25 MG IVP (11:38)
[2022-08-16] MEDS: FLUOROURACIL IV (13:23)
[2022-08-16] MEDS: CADD MED CASSETTE RESERVOIR IV (13:23)
[2022-08-16 20:43] LABS: Magnesium* 2.1 mg/dL (1.5-2.6)
[2022-08-18] MEDS: HEPARIN 500 UNIT/5 ML SYRINGE IVF (12:50)
[2022-08-18] MEDS: 0.9 % SODIUM CHLORIDE 250 ml IV (12:50)
[2022-08-30 08:23] VITALS: BP 122/85; PULSE 78; RESP 16; TEMP 36.2; O2SAT 96
[2022-08-30 08:48] LABS: Hematocrit 34.7 % (37.0-53.0); Hemoglobin* 11.9 gm/dL (13.5-17.5); Mean Corpuscular HGB Conc 34 gm/dL (32-36); Mean Corpuscular Hemoglobin 33 pg (26-34); Mean Corpuscular Volume 95 fL (80-100); Platelet Count* 257 K/uL (140-440); Red Blood Count 3.66 m/uL (4.30-5.90)
[2022-08-30 08:49] LABS: Immature Granulocytes Pct Auto 0.5 %; Lymphocytes Percent Auto 6.9 % (20-44); Monocytes Percent Auto 16.9 % (0.0-11.0); Neutrophils Percent Auto 69.7 % (42.0-72.0); RDW Coefficient of Variation % 14.6 % (11.5-15.5); Slide Review Reflex No
[2022-08-30 08:59] LABS: Albumin* 3.8 g/dL (3.3-5.0); Chloride* 101 mmol/L (96-114)
[2022-08-30 09:00] LABS: Potassium* 4.2 mmol/L (3.6-5.1); Sodium* 130 mmol/L (135-149)
[2022-08-30 09:02] LABS: Aspartate Amino Transferase* 25 U/L (12-35); Bilirubin Total* 0.5 mg/dL (0.1-1.5); Carbon Dioxide* 24 mmol/L (20-32); Creatinine* 0.8 mg/dL (0.5-1.5); Estimated Glomerular Filt Rate 106 ml/min; Total Protein* 6.7 g/dL (6.0-8.3)
[2022-08-30 09:03] LABS: Alanine Aminotransferase* 23 U/L (4-50); Alkaline Phosphatase* 149 U/L (40-150); Blood Urea Nitrogen* 13 mg/dL (7-30); Calcium* 8.5 mg/dL (8.4-10.6); Glucose* 99 mg/dL (60-115)
[2022-08-30 09:47] LABS: Appearance Urine Clear (Clear); Bilirubin Urine Negative (Negative); Blood Urine Negative (Negative); Color Urine Yellow (Yellow); Glucose Urine Negative (Negative); Ketones Urine Negative (Negative); Leukocyte Esterase Urine Negative (Negative); Nitrite Urine Negative (Negative); Protein Urine Negative (Negative); Urobilinogen Urine 0.2 (0.2-1.0)
[2022-08-30] MEDS: dexAMETHasone 20 MG in 0.9 % SODIUM CHLORIDE 100 ml 100 ML 408 MG IVPB (11:06)
[2022-08-30] MEDS: PALONOSETRON 0.25 MG/5 ML inj IV (11:06)
[2022-08-30] MEDS: FLUOROURACIL IV (13:31)
[2022-08-30] MEDS: CADD MED CASSETTE RESERVOIR IV (13:31)
[2022-08-30] MEDS: SODIUM CHLORIDE 0.9 % (FLUSH) 10 ML SYRINGE IVF (15:03)
[2022-09-01 11:22] VITALS: BP 125/88; PULSE 81; RESP 16; TEMP 36; O2SAT 94
[2022-09-01] MEDS: SODIUM CHLORIDE 0.9 % (FLUSH) 10 ML SYRINGE IVF (11:25)
[2022-09-01] MEDS: HEPARIN 500 UNIT/5 ML SYRINGE IVF (11:25)
--- NOTE | 2022-09-09 12:18 | ONC.NURNOTE ---
Pt declined to come in for sodium recheck at this time, will come in next week for labs and treatment.
[2022-09-13 08:26] LABS: Basophils Percent Auto 0.8 % (0.0-3.0); Eosinophils Percent Auto 7.2 % (0.0-7.0); Hematocrit 36.1 % (37.0-53.0); Immature Granulocytes Pct Auto 0.3 %; Lymphocytes Percent Auto 9.3 % (20-44); Mean Corpuscular HGB Conc 33 gm/dL (32-36); Mean Corpuscular Hemoglobin 32 pg (26-34); Mean Corpuscular Volume 97 fL (80-100); Monocytes Percent Auto 21.1 % (0.0-11.0); Neutrophils Percent Auto 61.3 % (42.0-72.0); Platelet Count* 277 K/uL (140-440); RDW Coefficient of Variation % 14.6 % (11.5-15.5); Red Blood Count 3.72 m/uL (4.30-5.90); White Blood Count* 3.89 K/uL (4.50-11.00)
[2022-09-13 08:27] LABS: Slide Review Reflex No
[2022-09-13 08:37] LABS: Albumin* 3.8 g/dL (3.3-5.0); Chloride* 102 mmol/L (96-114)
[2022-09-13 08:38] LABS: Potassium* 4.5 mmol/L (3.6-5.1); Sodium* 132 mmol/L (135-149)
[2022-09-13 08:40] LABS: Alanine Aminotransferase* 22 U/L (4-50); Alkaline Phosphatase* 131 U/L (40-150); Aspartate Amino Transferase* 32 U/L (12-35); Bilirubin Total* 0.4 mg/dL (0.1-1.5); Blood Urea Nitrogen* 12 mg/dL (7-30); Carbon Dioxide* 25 mmol/L (20-32); Estimated Glomerular Filt Rate 91 ml/min; Glucose* 108 mg/dL (60-115); Total Protein* 6.8 g/dL (6.0-8.3)
[2022-09-13 08:41] LABS: Calcium* 8.6 mg/dL (8.4-10.6)
[2022-09-13] MEDS: SODIUM CHLORIDE 0.9 % (FLUSH) 10 ML SYRINGE IVF (10:00)
[2022-09-13] MEDS: HEPARIN 500 UNIT/5 ML SYRINGE IVF (10:00)
[2022-09-27 08:32] LABS: Basophils Absolute Auto 0.02 K/uL (0.00-0.30); Basophils Percent Auto 0.3 % (0.0-3.0); Eosinophils Percent Auto 2.6 % (0.0-7.0); Hematocrit 39.1 % (37.0-53.0); Hemoglobin* 12.7 gm/dL (13.5-17.5); Immature Granulocytes Abs Auto 0.11 K/uL (0.00-0.30); Immature Granulocytes Pct Auto 1.4 %; Lymphocytes Percent Auto 6.8 % (20-44); Mean Corpuscular HGB Conc 33 gm/dL (32-36); Mean Corpuscular Hemoglobin 32 pg (26-34); Mean Corpuscular Volume 98 fL (80-100); Monocytes Percent Auto 12.9 % (0.0-11.0); Platelet Count* 292 K/uL (140-440); RDW Coefficient of Variation % 14.4 % (11.5-15.5); White Blood Count* 7.68 K/uL (4.50-11.00)
[2022-09-27 08:45] LABS: Slide Review Reflex No
[2022-09-27 08:47] LABS: Albumin* 3.9 g/dL (3.3-5.0); Chloride* 102 mmol/L (96-114); Sodium* 134 mmol/L (135-149)
[2022-09-27 08:48] LABS: Potassium* 4.4 mmol/L (3.6-5.1)
[2022-09-27 08:50] LABS: Aspartate Amino Transferase* 26 U/L (12-35); Bilirubin Total* 0.5 mg/dL (0.1-1.5); Blood Urea Nitrogen* 9 mg/dL (7-30); Carbon Dioxide* 26 mmol/L (20-32); Creatinine* 0.8 mg/dL (0.5-1.5); Estimated Glomerular Filt Rate 106 ml/min; Total Protein* 7.1 g/dL (6.0-8.3)
[2022-09-27 08:51] LABS: Alanine Aminotransferase* 18 U/L (4-50); Alkaline Phosphatase* 126 U/L (40-150); Glucose* 109 mg/dL (60-115)
[2022-09-27 09:42] VITALS: BP 128/81; PULSE 73; RESP 16; TEMP 36.9; O2SAT 97
[2022-09-27] MEDS: dexAMETHasone 20 MG in 0.9 % SODIUM CHLORIDE 100 ml 100 ML 408 MG IVPB (10:35)
[2022-09-27] MEDS: PALONOSETRON 0.25 MG/5 ML inj IV (10:35)
[2022-09-27] MEDS: 0.9 % SODIUM CHLORIDE 250 ml IV (10:36)
[2022-09-27 12:30] LABS: Appearance Urine Clear (Clear); Bilirubin Urine Negative (Negative); Blood Urine Negative (Negative); Color Urine Yellow (Yellow); Glucose Urine Negative (Negative); Ketones Urine Negative (Negative); Leukocyte Esterase Urine Negative (Negative); Nitrite Urine Negative (Negative); Protein Urine Negative (Negative); Urobilinogen Urine 0.2 (0.2-1.0); pH Urine 5.5 (5.0-8.5)
[2022-09-29 14:13] VITALS: BP 138/87; PULSE 81; RESP 18; TEMP 37.2; O2SAT 99
[2022-09-29 14:15] VITALS: BP 134/92; PULSE 89
--- NOTE | 2022-09-29 14:20 | ONC.NURNOTE ---
Addendum entered by Stacy Rosas RN 09/30/22 14:34: Trial Consultant called pt today to see how he was feeling. Pt states he feels much better, took some gas x yesterday, and stayed hydrated. Pt thinks he had a lot of gas yesterday. Pt has been outside today fertilizing his lawn. Original Note: Pt arrived for CADD pump off. VSS. BP slightly elevated. 138/87, BP pulse 81 sitting , BP 134/92, pulse 89 standing. Pt c/o stomach cramping, pt rates pain /10. He took long acting morphine and a percocet this morning at 10. Pt states the percocet did improve his pain. Pt states he has had this stomach cramping before with chemo, just more intense today. Pt states pain improves when lying down. Trial Consultant offered to have greeting card writer call provider for any recommendations, however, pt declined and wants to rest at home. Pt instructed to continue taking in fluids with electrolytes, and to call or be evaluated in emergency room if cramping pain worsens. Trial Consultant will call pt to follow up how he is doing tomorrow. Pt verbalized understanding of plan of care.
[2022-10-11 08:21] VITALS: BP 120/71; PULSE 67; RESP 16; TEMP 36.4; O2SAT 99
[2022-10-11 08:43] LABS: Basophils Absolute Auto 0.04 K/uL (0.00-0.30); Basophils Percent Auto 0.8 % (0.0-3.0); Eosinophils Percent Auto 7.4 % (0.0-7.0); Hematocrit 33.4 % (37.0-53.0); Hemoglobin* 10.9 gm/dL (13.5-17.5); Immature Granulocytes Abs Auto 0.01 K/uL (0.00-0.30); Immature Granulocytes Pct Auto 0.2 %; Lymphocytes Percent Auto 6.8 % (20-44); Mean Corpuscular HGB Conc 33 gm/dL (32-36); Mean Corpuscular Hemoglobin 32 pg (26-34); Mean Corpuscular Volume 97 fL (80-100); Monocytes Percent Auto 12.7 % (0.0-11.0); Neutrophils Percent Auto 72.1 % (42.0-72.0); Platelet Count* 240 K/uL (140-440); RDW Coefficient of Variation % 13.8 % (11.5-15.5); Red Blood Count 3.45 m/uL (4.30-5.90); White Blood Count* 4.88 K/uL (4.50-11.00)
[2022-10-11 08:45] LABS: Slide Review Reflex No
[2022-10-11 09:00] LABS: Albumin* 3.6 g/dL (3.3-5.0); Chloride* 101 mmol/L (96-114)
[2022-10-11 09:01] LABS: Potassium* 3.8 mmol/L (3.6-5.1); Sodium* 133 mmol/L (135-149)
[2022-10-11 09:03] LABS: Alkaline Phosphatase* 137 U/L (40-150); Aspartate Amino Transferase* 24 U/L (12-35); Bilirubin Total* 0.3 mg/dL (0.1-1.5); Blood Urea Nitrogen* 10 mg/dL (7-30); Carbon Dioxide* 26 mmol/L (20-32); Creatinine* 0.9 mg/dL (0.5-1.5); Estimated Glomerular Filt Rate 103 ml/min; Total Protein* 6.4 g/dL (6.0-8.3)
[2022-10-11 09:04] LABS: Alanine Aminotransferase* 21 U/L (4-50); Calcium* 8.6 mg/dL (8.4-10.6); Glucose* 97 mg/dL (60-115)
[2022-10-11] MEDS: dexAMETHasone 20 MG in 0.9 % SODIUM CHLORIDE 100 ml 100 ML 420 MG IVPB (09:39)
[2022-10-11] MEDS: PALONOSETRON 0.25 MG/5 ML inj IV (09:39)
[2022-10-13 09:37] VITALS: BP 127/71; PULSE 71; RESP 16; TEMP 36.8; O2SAT 96
[2022-11-01 09:01] LABS: Basophils Absolute Auto 0.03 K/uL (0.00-0.30); Basophils Percent Auto 0.4 % (0.0-3.0); Eosinophils Percent Auto 1.2 % (0.0-7.0); Hematocrit 33.8 % (37.0-53.0); Hemoglobin* 11.1 gm/dL (13.5-17.5); Immature Granulocytes Abs Auto 0.02 K/uL (0.00-0.30); Immature Granulocytes Pct Auto 0.2 %; Lymphocytes Percent Auto 4.1 % (20-44); Mean Corpuscular HGB Conc 33 gm/dL (32-36); Mean Corpuscular Hemoglobin 31 pg (26-34); Mean Corpuscular Volume 95 fL (80-100); Monocytes Percent Auto 11.6 % (0.0-11.0); Neutrophils Percent Auto 82.5 % (42.0-72.0); Platelet Count* 292 K/uL (140-440); RDW Coefficient of Variation % 13.4 % (11.5-15.5); Red Blood Count 3.55 m/uL (4.30-5.90); White Blood Count* 8.57 K/uL (4.50-11.00)
[2022-11-01 09:06] LABS: Slide Review Reflex No
[2022-11-01 09:21] LABS: Albumin* 3.4 g/dL (3.3-5.0); Chloride* 99 mmol/L (96-114); Potassium* 4.3 mmol/L (3.6-5.1); Sodium* 132 mmol/L (135-149)
[2022-11-01 09:23] LABS: Bilirubin Total* 0.4 mg/dL (0.1-1.5); Creatinine* 0.9 mg/dL (0.5-1.5); Estimated Glomerular Filt Rate 103 ml/min
[2022-11-01 09:24] LABS: Alanine Aminotransferase* 16 U/L (4-50); Alkaline Phosphatase* 145 U/L (40-150); Aspartate Amino Transferase* 25 U/L (12-35); Blood Urea Nitrogen* 14 mg/dL (7-30); Carbon Dioxide* 26 mmol/L (20-32); Glucose* 115 mg/dL (60-115); Total Protein* 6.4 g/dL (6.0-8.3)
[2022-11-01 09:25] LABS: Calcium* 8.6 mg/dL (8.4-10.6)
[2022-11-01] MEDS: PALONOSETRON 0.25 MG/5 ML inj IV (10:25)
[2022-11-01] MEDS: dexAMETHasone 20 MG in 0.9 % SODIUM CHLORIDE 100 ml 100 ML 420 MG IVPB (10:25)
--- NOTE | 2022-11-18 08:50 | ONC.NURNOTE ---
Patient called stating [facility] did not have ER morphine 30mg tabs and he took his last dose last evening. Called [facility] and they have it in stock. Per pharmacist, they need a new order and cannot transfer original prescription. Alaina will send in a new one. left a message for Ashley Tom to cancel the original prescription.
[2022-11-22 09:13] LABS: Basophils Absolute Auto 0.02 K/uL (0.00-0.30); Basophils Percent Auto 0.2 % (0.0-3.0); Eosinophils Absolute Auto 0.06 K/uL (0.00-0.50); Eosinophils Percent Auto 0.6 % (0.0-7.0); Hematocrit 30.8 % (37.0-53.0); Immature Granulocytes Abs Auto 0.03 K/uL (0.00-0.30); Immature Granulocytes Pct Auto 0.3 %; Lymphocytes Percent Auto 3.5 % (20-44); Mean Corpuscular HGB Conc 33 gm/dL (32-36); Mean Corpuscular Hemoglobin 30 pg (26-34); Mean Corpuscular Volume 93 fL (80-100); Monocytes Percent Auto 12.7 % (0.0-11.0); Neutrophils Percent Auto 82.7 % (42.0-72.0); Platelet Count* 357 K/uL (140-440); RDW Coefficient of Variation % 13.3 % (11.5-15.5); Red Blood Count 3.32 m/uL (4.30-5.90); White Blood Count* 9.98 K/uL (4.50-11.00)
[2022-11-22 09:27] LABS: Slide Review Reflex No
[2022-11-22 09:31] LABS: Albumin* 3.5 g/dL (3.3-5.0); Chloride* 98 mmol/L (96-114)
[2022-11-22 09:32] LABS: Potassium* 4.3 mmol/L (3.6-5.1); Sodium* 133 mmol/L (135-149)
[2022-11-22 09:34] LABS: Aspartate Amino Transferase* 21 U/L (12-35); Bilirubin Total* 0.4 mg/dL (0.1-1.5); Carbon Dioxide* 27 mmol/L (20-32); Creatinine* 1.1 mg/dL (0.5-1.5); Estimated Glomerular Filt Rate 81 ml/min; Total Protein* 6.5 g/dL (6.0-8.3)
[2022-11-22 09:35] LABS: Alanine Aminotransferase* 18 U/L (4-50); Alkaline Phosphatase* 182 U/L (40-150); Blood Urea Nitrogen* 14 mg/dL (7-30); Calcium* 8.6 mg/dL (8.4-10.6); Glucose* 105 mg/dL (60-115)
[2022-12-29 12:45] LABS: Carcinoembryonic Antigen 3.7 ng/mL (<=3.8)
== END 2023-01-01 23:59 | disposition home or self-care (01) ==
LOC: CCIC 09:30
PROVIDERS: Clinical Nurse Specialist; Internal Medicine Medical Oncology; Visit Provider Internal Medicine Hematology & Oncology
DX: C20 Malignant neoplasm of rectum (principal); C77.2 Secondary and unspecified malignant neoplasm of intra-abdominal lymph nodes; R91.8 Other nonspecific abnormal finding of lung field; I89.0 Lymphedema, not elsewhere classified; K61.1 Rectal abscess
CPT/HCPCS: 36415; 36591; 80053; 81003; 82378; 83735; 85025; 96366; 96368; 96376; 96413; 96415; 96416; 96417; 99211; 99212; 99213; 99214; 99215; J0461; J0640; J1100; J1642; J2469; J7050; J7120; J9190; J9206; Q5107

== ENCOUNTER 2023-01-22 20:53 | Emergency (ER) | payer MEDICARE, OTHER, SELFPAY ==
[2023-01-22] VITALS (19 sets, daily range): BP systolic 52–114; BP diastolic 32–82; PULSE 96–122; RESP 18; TEMP 36.3; O2SAT 92–100; BMI 18.0
--- NOTE | 2023-01-22 21:06 | ED.GENADULT ---
HPI - General Adult General Chief complaint: Urogenital Problems, Male Stated complaint: Rectal bleeding Time Seen by Provider: 01/22/23 21:02 History of Present Illness HPI narrative: 52-year-old man presenting via EMS to the emergency department with concern of rectal bleeding. Underlying history of add no carcinoma of the rectum with metastases. Has also recently had rectal abscesses treated with with antibiotics. And was improved in that regard. Has had rectal bleeding before. Is considering palliative care at this point. Looks like per my review of records that is contemplating 1 more PET scan and decision to be made at that time. Today while using the bathroom with suddenly noticed the blood was running down his leg. He is not complaining of being increasingly short of breath or of any abdominal pain. A rise tachycardic. EMS had reported systolic blood pressure about 50s arrives with pressures in the 70s over 60s. Related Data Home Medications Medication Instructions Recorded Confirmed diphenhydramine HCl 25 mg capsule 25 mg PO Q8H PRN 11/26/21 12/28/22 ibuprofen 200 mg capsule 200 mg PO Q6-8H PRN 11/26/21 12/28/22 loperamide-simethicone 2 mg-125 mg 1 tab PO DAILY PRN 05/17/22 12/28/22 tablet (Anti-Diarrheal (loperamide) - Anti-Gas) docusate sodium 100 mg capsule 100 mg PO QDAY PRN 06/07/22 12/28/22 (Stool Softener) Previous Rx's Medication Instructions Recorded ondansetron HCl 8 mg tablet 8 mg PO Q8H PRN nausea and 01/07/22 vomiting #30 tabs amoxicillin 500 mg-potassium 1 tab PO Q12H #28 tabs 12/28/22 clavulanate 125 mg tablet (Augmentin) metronidazole 375 mg capsule 375 mg PO BID #28 caps 12/28/22 (Flagyl) morphine 30 mg capsule,extended 30 mg PO Q8H #90 caps 01/06/23 release pellets oxycodone-acetaminophen 5 mg-325 1 tab PO Q4-6H PRN pain #90 tabs 01/06/23 mg tablet Allergies Allergy/AdvReac Type Severity Reaction Status Date / Time avocado Allergy Unknown Verified 01/22/23 22:40 adhesive AdvReac Mild Rash Verified 08/26/23 22:40 Review of Systems Status of ROS: Reports: 6 or more systems reviewed and unremarkable except as noted in History and below [facility] Medical History Back arthralgia ?M54.9 - Dorsalgia, unspecified (ICD-10) Elevated cholesterol ?E78.00 - Pure hypercholesterolemia, unspecified (ICD-10) Hypokalemia ?E87.6 - Hypokalemia (ICD-10) Social History Physical activity type details: Enjoys ice fishing, outside activities with his and grandchildren Smoking Status: Current every day smoker How often do you have a drink containing alcohol: 4 or more times a week AUDIT-C Alcohol total score: 4 Caffeine: Yes Are you now , , , , never or living with a partner: Social isolation score (0-1 are the most socially isolated patients): 1 Exam Narrative: Exam Narrative: Fully alert. Pleasant. Quite calm. Eroded dentition. Generally rather slim. Skin looks generally little perry though otherwise appears well perfused. Heart is tachycardic. Is breathing easily. Abdomen is flat soft and nontender. Extremities are without edema. We roll him to examine backside. There is large blood clot with marked bleeding, exacerbated with any manipulation, from the rectum. I do not see any purulence or evidence of asymmetry to suggest abscesses. Nontender. Const: Vital Signs, click to edit/add: Vital Signs - 24 hr 01/22/23 21:00 01/22/23 21:01 Blood Pressure 79/67 L 94/53 L Documenting provider has reviewed patient's vital signs: yes Course Vital Signs Vital signs: Initial Vital Signs Blood Pressure 79/67 L 01/22/23 21:00 Blood Pressure Mean 71 01/22/23 21:00 Vital Signs Blood Pressure 79/67 L 01/22/23 21:00 Temperature 97.3 F L 01/22/23 22:37 Pulse Rate 122 H 01/22/23 22:37 Respiratory Rate 18 01/22/23 22:37 Blood Pressure 73/54 L 01/22/23 22:37 Pulse Oximetry 98 01/22/23 22:37 Oxygen Delivery Method Room Air 01/22/23 22:37 Medical Decision Making MDM Narrative Medical decision making narrative: On arrival another line is been started. Will also access port. He is typed and crossed. Starting fluid boluses. He has received TXA from EMS already. Looking for transport. I do discuss code status. At this point he is full code desiring all interventions. This is critical. Appears to be hemorrhaging. We will not be able to care for here. Would need Gastroenterology, Interventional Radiology. Confirmed adequate platelets. Have have hung 2 units of O-negative blood in the interest of time. Pressure seem to have stabilized in the mid 70s over mid 50s with IV fluid resuscitation. Remains tachycardic. Have not needed to initiate pressors though I am concerned this may be yet necessary. Arrival of air care is imminent. Discussed this case with intensivists at [place] will thankfully be able to receive for further cares. Transported via air Medical Records Medical records reviewed: Yes I reviewed the patient's medical records Lab Data Lab results reviewed: Yes I reviewed the patient's lab results Labs: Lab Results 01/22/23 01/22/23 Range/Units 21:08 21:27 WBC 10.19 (4.50-11.00) K/uL RBC 2.78 L (4.30-5.90) m/uL Hgb 8.0 L (13.5-17.5) gm/dL Hct 26.4 L (37.0-53.0) % MCV 95 (80-100) fL MCH 29 (26-34) pg MCHC 30 L (32-36) gm/dL RDW Coeff of Andrew 13.8 (11.5-15.5) % Plt Count 497 H (140-440) K/uL Neut % (Auto) 61.3 (42.0-72.0) % Lymph % (Auto) 17.7 L (20-44) % [place] % (Auto) 13.6 H (0.0-11.0) % Eos % (Auto) 6.8 (0.0-7.0) % Baso % (Auto) 0.4 (0.0-3.0) % Neut # (Auto) 6.25 (1.7-7.0) K/uL Lymph # (Auto) 1.80 (0.90-2.90) K/uL [place] # (Auto) 1.40 H (0.00-0.90) K/UL Eos # (Auto) 0.69 H (0.00-0.50) K/uL Baso # (Auto) 0.04 (0.00-0.30) K/uL Abs Immat Gran (auto) 0.02 (0.00-0.30) K/uL Imm/Tot Granulo (auto) 0.2 % Sodium 136 (135-149) mmol/L Potassium 3.7 (3.6-5.1) mmol/L Chloride 109 (96-114) mmol/L Carbon Dioxide 18 L (20-32) mmol/L Anion Gap 9 (7-15) mEq/L BUN 15 (7-30) mg/dL Creatinine 0.8 (0.5-1.5) mg/dL Estimated GFR 106 ml/min Glucose 131 H (60-115) mg/dL Calcium 7.4 L (8.4-10.6) mg/dL Total Bilirubin 0.3 (0.1-1.5) mg/dL Direct Bilirubin 0.1 (0.0-0.5) mg/dL AST 33 (12-35) U/L ALT 23 (4-50) U/L Alkaline Phosphatase 145 (40-150) U/L C-Reactive Protein 1.1 H (0.5-1.0) mg/dL Total Protein 4.7 L (6.0-8.3) g/dL Albumin 2.6 L (3.3-5.0) g/dL Blood Type O Positive Antibody Screen NEGATIVE Crossmatch (AHG) See Detail Critical Care Time Critical Care Time Total Critical Care Time in Minutes: 75 Discharge Plan Discharge Clinical Impression: Rectal hemorrhage Patient Disposition: Xfer [place] Discharge Location: [facility] Condition: Critical Instructions: Rectal Bleeding (ED) Prescriptions: No Action ondansetron HCl 8 mg tablet 8 mg PO Q8H PRN (Reason: nausea and vomiting) Qty: 30 6RF Hold Instructions: not needing docusate sodium [Stool Softener] 100 mg capsule 100 mg PO QDAY PRN metronidazole [Flagyl] 375 mg capsule 375 mg PO BID Qty: 28 0RF amoxicillin-pot clavulanate [Augmentin] 500-125 mg tablet 1 tab PO Q12H Qty: 28 0RF diphenhydramine HCl 25 mg capsule 25 mg PO Q8H PRN ibuprofen 200 mg capsule 200 mg PO Q6-8H PRN loperamide-simethicone [Anti-Diarrheal (patti)-Anti-Gas] 2-125 mg tablet 1 tab PO DAILY PRN morphine 30 mg capsule,extend.release pellets 30 mg PO Q8H Qty: 90 0RF oxycodone-acetaminophen 5-325 mg tablet 1 tab PO Q4-6H MDD 4 PRN (Reason: pain) Qty: 90 0RF Stand Alone Forms: [facility] Info Instructions
[2023-01-22 21:13] LABS: Basophils Absolute Auto 0.04 K/uL (0.00-0.30); Basophils Percent Auto 0.4 % (0.0-3.0); Eosinophils Absolute Auto 0.69 K/uL (0.00-0.50); Eosinophils Percent Auto 6.8 % (0.0-7.0); Hematocrit 26.4 % (37.0-53.0); Immature Granulocytes Abs Auto 0.02 K/uL (0.00-0.30); Immature Granulocytes Pct Auto 0.2 %; Lymphocytes Percent Auto 17.7 % (20-44); Mean Corpuscular HGB Conc 30 gm/dL (32-36); Mean Corpuscular Hemoglobin 29 pg (26-34); Mean Corpuscular Volume 95 fL (80-100); Monocytes Percent Auto 13.6 % (0.0-11.0); Neutrophils Absolute Auto 6.25 K/uL (1.7-7.0); Neutrophils Percent Auto 61.3 % (42.0-72.0); Platelet Count* 497 K/uL (140-440); RDW Coefficient of Variation % 13.8 % (11.5-15.5); Red Blood Count 2.78 m/uL (4.30-5.90); White Blood Count* 10.19 K/uL (4.50-11.00)
[2023-01-22 21:19] LABS: Slide Review Reflex No
[2023-01-22 21:45] LABS: Chloride* 109 mmol/L (96-114); Sodium* 136 mmol/L (135-149)
[2023-01-22 21:46] LABS: Potassium* 3.7 mmol/L (3.6-5.1)
[2023-01-22 21:47] LABS: Albumin* 2.6 g/dL (3.3-5.0)
[2023-01-22 21:48] LABS: Creatinine* 0.8 mg/dL (0.5-1.5); Estimated Glomerular Filt Rate 106 ml/min
[2023-01-22 21:49] LABS: Anion Gap 9 mEq/L (7-15); Bilirubin Direct* 0.1 mg/dL (0.0-0.5); Bilirubin Total* 0.3 mg/dL (0.1-1.5); Blood Urea Nitrogen* 15 mg/dL (7-30); Calcium* 7.4 mg/dL (8.4-10.6); Carbon Dioxide* 18 mmol/L (20-32); Glucose* 131 mg/dL (60-115); Total Protein* 4.7 g/dL (6.0-8.3)
[2023-01-22 21:50] LABS: Alanine Aminotransferase* 23 U/L (4-50); Alkaline Phosphatase* 145 U/L (40-150); Aspartate Amino Transferase* 33 U/L (12-35)
[2023-01-22 21:52] LABS: C Reactive Protein* 1.1 mg/dL (0.5-1.0)
--- NOTE | 2023-01-22 22:28 | ED.NURSE ---
Patient was given 2 units of O negative blood. Administration and documentation was recorded on the blood transfusion worksheet. See those documentation for further information.
--- NOTE | 2023-01-22 22:32 | ED.NURSE ---
Report given to [facility]'s Nurse SARAH Raygoza. Pt flew with [facility] to [place] report given to both [facility] Rn's. Paperwork completed regarding 2 units of O- neg blood that was given.
[2023-01-22] MEDS: 0.9 % SODIUM CHLORIDE 1000 ml 1,000 ML 6000 ML IV ×2 (22:33)
[2023-01-22] MEDS: 0.9 % SODIUM CHLORIDE 250 ml IV (22:34)
== END 2023-01-22 22:43 | disposition other institution (70) ==
PROVIDERS: Emergency Provider Family Medicine
DX: K62.5 Hemorrhage of anus and rectum (principal)
CPT/HCPCS: 36415; 36430; 80048; 80076; 85025; 85610; 86140; 86850; 86900; 86901; 86922; 93005; 94761; 96374; 99284; 99291; G0390; J7030; J7050; P9016